=== PATIENT | male | born 1965 | race Caucasian/White ===

== ENCOUNTER 2019-06-05 07:57 | Outpatient (RCR) | payer MEDICARE, SELFPAY ==
--- NOTE | 2019-06-05 09:09 | PTOPEVAL ---
Thank you for referring this patient to [facility]. Please review, sign, date and return this plan of care [facility]. I agree with and certify that the following plan of care is medically necessary. Referring Physician Date Admitting Provider: Attending Provider: PHYSICIAN NOT ON STAFF Referring Provider: *PT Outpatient Evaluation Start: 06/05/19 08:07 Freq: Status: Active Protocol: Document 06/05/19 08:05 LORI (Rec: 06/05/19 09:07 Mavis [id number]) Therapy Assessment Status Assessment Status Assessment Status Evaluation Evaluation Information Problem Diagnosis neck pain Onset 05/30/19 Additional Evaluation Detail NDI = 38% functionally declined. Subjective Information patient reports he has been Query Text:As Reported By Patient/ having pain in the neck and in Family his bilateral arms. he reports the pain is worse in the L arm. he reports he also has pain in the L LE. he reports the pain in the neck and arms is what he is reffered to skilled PT. he reports he has numbness in the L more than the R arm. he reports he has been having pain/symptoms for a few months . he reports no injury. he reports pain/tingling/numbness /needles will appear in his arm. he reports he has pain over shaun entire arm and into the entire hand. he reports symptoms worsening with reaching above his head. he also reports he has light headedness and difficulty looking up and down. he reports the R arm will only occur when the L arm is pinful and the R arm pain does not go into his hand. Prior Level of Function Comments Additional Prior Level of Function prior to a few months ago, he Comments reports he was having no severe symptoms, but reports he has been to the chiropractor about 1 year or so ago for neck pain. he reports he is not working. he
--- NOTE | 2019-06-27 08:28 | PCPTNOTE ---
06/27/19- pt did not show for yesterday's apt. pt was called, and vm was left for pt to call back and reschedule. -.
== END 2019-06-21 17:00 | disposition home or self-care (01) ==
LOC: CHSPT 07:57
DX: M54.2 Cervicalgia (principal); R20.2 Paresthesia of skin
CPT/HCPCS: 97012; 97014; 97110; 97162; G0283

== ENCOUNTER 2019-07-03 12:38 | Outpatient (CLI) | payer MEDICARE, SELFPAY ==
--- NOTE | ~2019-07-03 | XR_ITS ---
XR cervical spine 4-5V DATE: 07/03/2019 13:01 INDICATION: Neck pain for a couple of months, radiating into both upper extremities TECHNIQUE: AP, open-mouth, lateral, bilateral oblique views COMPARISON: None FINDINGS: There is straightening and minimal dextroscoliosis of the cervical spine. Diffuse osteopenia. C1 and C2 are normally aligned and the odontoid process is intact. There is minimal anterolisthesis at C4-5. There is severe degenerative disc disease and and minimal retrolisthesis at C5-6. There is prominent uncovertebral joint spurring at C5-6, right greater than left, encroaching upon th e anterior aspect of the C6 neural foramina. Bilateral cervical carotid arterial calcifications are noted. IMPRESSION: Severe degenerative disc disease and associated minimal retrolisthesis at C5-C6 Minimal anterolisthesis at C4-5 Prominent uncovertebral joint spurring bilaterally at C5-6, especially prominent on the right, with c orresponding anterior encroachment upon both C6 neural foramina Reviewed, dictated and finalized at location B. IMPRESSION: Severe degenerative disc disease and associated minimal retrolisthe sis at C5-C6 Minimal anterolisthesis at C4-5 Prominent uncovertebral joint spurring bilaterally at C5-6, especially prominen t on the right, with corresponding anterior encroachment upon both C6 neural fo ramina
== END 2019-07-03 12:39 | disposition home or self-care (01) ==
LOC: CHSIMG 12:43
DX: M54.2 Cervicalgia (principal)
CPT/HCPCS: 72050

== ENCOUNTER 2019-12-29 13:52 | Emergency (ER) | payer MEDICARE, SELFPAY ==
--- NOTE | 2019-12-29 14:25 | PC.NURSE ---
Pt here requesting samples of xarelto, when pt was made aware that we do not have samples to hand out for pts, pt decided not to be evaluated. Pt advised to consult with his pmd and pharmacist regarding his difficulty to pay for prescriptions.
== END 2019-12-29 14:26 | disposition left against medical advice (07) ==
PROVIDERS: Emergency Provider Emergency Medicine
DX: Z53.8 Procedure and treatment not carried out for other reasons (principal)
CPT/HCPCS: 99199

== ENCOUNTER 2020-05-06 11:18 | Outpatient (CLI) | payer MEDICARE, SELFPAY ==
[2020-05-06 11:33] LABS: Basophils Absolute Auto 0.06 K/mm3 (0.00-0.10); Eosinophils Absolute Auto 0.17 K/mm3 (0.02-0.50); Eosinophils Percent Auto 2.8 % (1.0-6.0); Hematocrit 42.3 % (40.0-54.0); Hemoglobin 14.4 g/dL (14.0-18.0); Immature Granulocyte Absolute 0.02 K/mm3 (0.00-0.00); Immature Granulocyte Percent A 0.3 % (0.0-0.0); Lymphocytes Absolute Auto 1.83 K/mm3 (1.10-4.50); Lymphocytes Percent Auto 29.7 % (18.0-42.0); Mean Corpuscular Hemoglobin 33.4 pg (27.0-31.0); Mean Corpuscular Volume 98.1 fL (78.0-102.0); Mean Platelet Volume 9.1 fl (8.7-11.0); Monocytes Absolute Auto 0.74 K/mm3 (0.10-0.90); Neutrophils Absolute Auto 3.3 K/mm3 (1.7-7.2); Neutrophils Percent Auto 54.2 % (50.0-70.0); Platelet Count Result 229 K/mm3 (150-420); Red Blood Count 4.31 M/mm3 (4.70-6.10); Red Cell Distribution Width 14.3 % (11.6-14.4); White Blood Count 6.2 K/mm3 (4.8-10.8)
[2020-05-06 12:56] LABS: Alanine Aminotransferase 24 U/L (16-63); Albumin Level 3.7 g/dL (3.4-5.0); Alkaline Phosphatase 62 U/L (46-116); Anion Gap 9 mmol/L (8-16); Aspartate Amino Transferase 14 U/L (15-37); Bilirubin,Total 0.3 mg/dL (0.00-1.00); Blood Urea Nitrogen 10 mg/dL (7-18); Calcium 8.9 mg/dL (8.5-10.1); Carbon Dioxide 30 mmol/L (21-32); Chloride 106 mmol/L (98-108); Cholesterol 137 mg/dL (0-200); Estimated Glomerular Filt Rate > 60; Glucose 71 mg/dL (70-99); HDL Direct 44 mg/dL (40-60); LDL Cholesterol Calculated 71 mg/dL (<130); Osmolality Calculated 297 mOsm/kg (285-295); Potassium 4.3 mmol/L (3.5-5.1); Sodium 145 mmol/L (136-145); Total Protein 6.8 g/dL (6.4-8.2); Triglycerides 111 mg/dL (0-150)
== END 2020-05-06 11:19 | disposition home or self-care (01) ==
DX: R10.30 Lower abdominal pain, unspecified (principal); I10 Essential (primary) hypertension
CPT/HCPCS: 36415; 80053; 80061; 85025

== ENCOUNTER 2020-06-18 08:59 | Outpatient (CLI) | payer MEDICARE, MEDICAID, SELFPAY | END 2020-06-18 09:00 | disposition home or self-care (01) | DX: Z52.3 Bone marrow donor (principal) | CPT/HCPCS: 36415 ==

== ENCOUNTER 2021-04-09 11:33 | Outpatient (CLI) | payer MEDICARE, SELFPAY ==
--- NOTE | ~2021-04-09 | CT_ITS ---
EXAMINATION: CT lung screening DATE: 04/09/2021 13:31 INDICATION: Personal history of tobacco dependence SMOKER SCREENING TECHNIQUE: Computed tomography (CT) of the chest was performed without intravenous contrast. Addition al 3D reconstructions utilizing coronal maximum intensity projection (MIP) were performed. Automated exposure control and iterative reconstruction technique were employed. The dose-length product was 95 .00 mGy-cm. COMPARISON: None FINDINGS: Mild emphysema. 2.6 x 2.0 cm left apical mass with lobular margins concerning for primary bronchogeni c carcinoma. 1.7 x 1.2 cm nodule at the right middle lobe which could represent either an additional primary bronchogenic carcinoma or metastatic disease. There is enlargement of the left hilum suggesti ng lymphadenopathy which is difficult to distinguish from the adjacent vasculature. More clearly dist inguishable is a 3.0 x 2.4 cm lymph node at the AP window and 2.4 x 1.4 cm prevascular lymph node whi ch are both suspicious for metastatic disease. Mild smooth septal line thickening and increased promi nence of the pulmonary vasculature in the intersegment the left upper lobe suggesting venous congesti on and mild pulmonary edema potentially related to obstruction at the level of the left hilum. Apical posterior bronchi of the left upper lobe also appear occluded near the hilum which could be due to e xtrinsic compression. Linear atelectasis/scarring the superior segment of the left lower lobe. Additi onal mild linear scarring associated with a couple tiny calcified nodules in the superior segment of the right upper lobe which along with calcified mediastinal and bilateral hilar lymph nodes are consi stent with old granulomatous disease. No pneumonia or pleural effusion. Heart size is normal. Atheros clerotic coronary artery calcific lesions. No pericardial effusion. No evident supraclavicular lympha denopathy. Visualized upper abdomen is unremarkable. Mild thoracic spondylosis with bridging osteophy vannessa at several levels consistent with diffuse idiopathic skeletal hyperostosis (DISH). Chronic mild a nterior wedging at T10-T12. IMPRESSION: 1. Lung-RADS category 4X: Suspicious findings for which additional diagnostic testing and/or tissue s ampling is recommended with additional imaging findings with the increased suspicion for malignancy. Recommend CT-guided percutaneous biopsy of the right apical nodule. 2. Mediastinal and left hilar lymphadenopathy suspicious for metastatic disease. 3. Additional 1.7 x 1.2 cm right middle lobe nodule suspicious for metastatic disease versus second p rimary bronchogenic carcinoma. Reviewed, dictated and finalized at location H. R MACHINE OPERATOR IMPRESSION: 1. Lung-RADS category 4X: Suspicious findings for which additional diagnostic t esting and/or tissue sampling is recommended with additional imaging findings w ith the increased suspicion for malignancy. Recommend CT-guided percutaneous bi opsy of the right apical nodule. 2. Mediastinal and left hilar lymphadenopathy suspicious for metastatic disease . 3. Additional 1.7 x 1.2 cm right middle lobe nodule suspicious for metastatic d isease versus second primary bronchogenic carcinoma.
[2021-04-09 13:00] LABS: Hemoglobin 14.3 g/dL (14.0-18.0); Mean Corpuscular Hemoglobin 33.6 pg (27.0-31.0); Mean Corpuscular Volume 98.8 fL (78.0-102.0); Mean Platelet Volume 9.3 fl (8.7-11.0); Platelet Count Result 220 K/mm3 (150-420); Red Blood Count 4.25 M/mm3 (4.70-6.10); Red Cell Distribution Width 15.2 % (11.6-14.4); White Blood Count 8.6 K/mm3 (4.8-10.8)
[2021-04-09 13:36] LABS: Prostate Specific Antigen 0.6 ng/mL (< OR = 4.0)
[2021-04-09 17:07] LABS: Basophils Absolute Auto 0.06 K/mm3 (0.00-0.10); Basophils Percent Auto 0.7 % (0.0-1.0); Eosinophils Absolute Auto 0.09 K/mm3 (0.02-0.50); Immature Granulocyte Absolute 0.04 K/mm3 (0.00-0.00); Immature Granulocyte Percent A 0.5 % (0.0-0.0); Lymphocytes Percent Auto 24.4 % (18.0-42.0); Monocytes Absolute Auto 1.01 K/mm3 (0.10-0.90); Monocytes Percent Auto 11.8 % (2.0-11.0); Neutrophils Absolute Auto 5.3 K/mm3 (1.7-7.2); Neutrophils Percent Auto 61.6 % (50.0-70.0)
[2021-04-09 17:15] LABS: Alanine Aminotransferase 29 U/L (16-63); Albumin Level 3.4 g/dL (3.4-5.0); Alkaline Phosphatase 74 U/L (46-116); Anion Gap 12 mmol/L (8-16); Aspartate Amino Transferase 23 U/L (15-37); Bilirubin,Total 0.5 mg/dL (0.00-1.00); Blood Urea Nitrogen 12 mg/dL (7-18); Calcium 8.5 mg/dL (8.5-10.1); Carbon Dioxide 29 mmol/L (21-32); Chloride 99 mmol/L (98-108); Estimated Glomerular Filt Rate > 60; Glucose 104 mg/dL (70-99); Osmolality Calculated 289 mOsm/kg (285-295); Sodium 140 mmol/L (136-145); Total Protein 6.7 g/dL (6.4-8.2)
== END 2021-04-09 11:34 | disposition home or self-care (01) ==
DX: I25.10 Atherosclerotic heart disease of native coronary artery without angina pectoris (principal); I10 Essential (primary) hypertension; Z12.2 Encounter for screening for malignant neoplasm of respiratory organs; F17.210 Nicotine dependence, cigarettes, uncomplicated; Z12.5 Encounter for screening for malignant neoplasm of prostate; Z00.00 Encounter for general adult medical examination without abnormal findings
CPT/HCPCS: 36415; 71271; 80053; 84153; 85025; 85027; G0103

== ENCOUNTER 2021-05-12 13:39 | Outpatient (CLI) | payer MEDICARE, SELFPAY ==
--- NOTE | ~2021-05-12 | PE_ITS ---
EXAMINATION: PET skull to mid thigh DATE: 05/12/2021 15:28 INDICATION: Lung nodule. TECHNIQUE: Blood glucose level was 84 mg/dL. 10.435 mCi of 18-fluorodeoxyglucose (18-FDG) was adminis tered i.v. Low dose computed tomography (CT) images were acquired from the base of the brain to the p roximal thighs for attenuation correction and anatomic localization. Automated exposure control was e mployed. Dose-length product (DLP) was 476 mGy-cm. Positron emission tomography (PET) images were acq uired in the same distribution. COMPARISON: Chest CT 04/09/2021 FINDINGS: Head/neck: There is complete opacification of left maxillary sinus with thickening and sclerosis of t he sinus mena, consistent with chronic sinusitis. There is mucosal thickening in the left frontal an d anterior ethmoid sinuses. There is extensive dental disease. There is increased activity in the ora l pharynx, major salivary glands, and glottis without CT correlate, likely physiologic. There is a 1. 9 x 1.6 cm left supraclavicular lymph node with maximum SUV of 12.9. Chest: There is a 2.4 cm nodule in left upper lobe with maximum SUV of 15.8. There is mild emphysema. There are patchy airspace and groundglass opacities in left upper lobe. There is septal thickening i n left lung upper lobe. There is bulky left hilar lymphadenopathy with increased activity with occlus ion of the bronchus to apicoposterior segment left upper lobe. There is mediastinal lymphadenopathy w ith increased activity. Calcified bilateral hilar and mediastinal lymph nodes are consistent with old granulomatous disease. There is a 10 mm nodule in right middle lobe without increased activity, lik abraham benign. There is mild atelectasis bilaterally. No pleural effusion. The heart size is normal. Th ere are coronary artery calcifications. No pericardial effusion. Abdomen/pelvis/proximal thighs: The liver, spleen, and pancreas are normal. There are gallstones in t he gallbladder, which is normal in size. There are masses in the adrenal glands measuring up to 15 mm on the left measuring low-attenuation without increased activity, consistent with adenomas. The kidn eys are normal. The prostate is mildly enlarged. There are no dilated loops of bowel. The appendix is normal. There are no pathologically enlarged lymph nodes. There is no free intraperitoneal fluid. Th ere is no osseous malignancy. IMPRESSION: 1. 2.4 cm nodule in left lung upper lobe with increased activity, consistent with primary bronchial c arcinoma. 2. Left hilar, mediastinal, and left supraclavicular lymphadenopathy, consistent with metastatic dise ase. Ultrasound-guided core needle biopsy of a left supraclavicular lymph node is recommended. 3. New airspace and groundglass opacities and septal thickening in left lung upper lobe, consistent w ith postobstructive pulmonary edema and/or pneumonia. Reviewed, dictated and finalized at location A. ER/WAITRESS TAKE OUT IMPRESSION: 1. 2.4 cm nodule in left lung upper lobe with increased activity, consistent wi th primary bronchial carcinoma. 2. Left hilar, mediastinal, and left supraclavicular lymphadenopathy, consisten t with metastatic disease. Ultrasound-guided core needle biopsy of a left supra clavicular lymph node is recommended. 3. New airspace and groundglass opacities and septal thickening in left lung up per lobe, consistent with postobstructive pulmonary edema and/or pneumonia.
[2021-05-12 14:02] LABS: Glucose Point of Care 84 mg/dl (65-105)
== END 2021-05-12 13:40 | disposition home or self-care (01) ==
PROVIDERS: Visit Provider Internal Medicine Pulmonary Disease
DX: R91.1 Solitary pulmonary nodule (principal)
CPT/HCPCS: 78815; A9552

== ENCOUNTER 2021-07-06 02:21 | Day surgery (SDC) | payer MEDICARE, SELFPAY ==
[2021-06-29 09:26] VITALS: BMI 25.9
--- NOTE | 2021-06-29 09:42 | PC.NURSE ---
Addendum entered by Marisa Marshall RN 07/01/21 15:36: PT TO ARRIVE AT 1230 ON 07/06/21 FOR SURGERY AT 1430. MEDICATIONS TO TAKE: CARVEDILOL, INHALERS, AUGMENTIN, AND PAIN PILL (IF NEEDED). Original Note: Report to the Outpatient Waiting Room, entrance under the green pavilion located off [facility], at time 1000 on date 07/01/21. OR Time: 1200. - You and your visitor will be asked a series of questions to screen for COVID 19 for your protection. - A mask is required within the hospital. One visitor will be allowed to accompany the patient into the hospital. Patients visitor will be instructed to remain with patient at all times or leave the building. We will allow the visitor to come back to the postoperative area when patient is ready. Preoperative COVID Testing Requirements: No COVID Test needed if: (proof is required; if not received patient will have Rapid Test prior to entry) - Patient has received COVID Vaccine at least 14 days prior to procedure date or - Patient has positive COVID test result within last 90 days of surgery date. COVID Test needed if above criteria is not met Patients may have clear liquids (water, carbonated beverages, clear teas, apple juice) until 3 hours prior to surgery with a maximum of 20 ounces. - No food from midnight until time of surgery Take the following medications with a SIP of water the morning of surgery: CARVEDILOL, INHALERS Medications to discontinue per physician: XARELTO Date to take last dose: PT LAST TOOK 06/28 AM Please no make-up, nail lithuanian, hairspray, perfume, deodorant, or body powder the day of surgery. No jewelry (including any body piercings) or valuables the day of surgery, leave them at home. Please take a shower or bath the night before, or the morning of, surgery with an antibacterial soap. Wear comfortable, loose fitting clothing. - Jewelry must be removed prior to entering the operating room. Rings and piercings that are not removed may be cut off. - The hospital will not accept responsibility for valuables. - Please leave all valuables, including medications, at home the day of surgery. If you are going home after surgery, a licensed chair car driver must drive you home. - NO public transportation without another adult. - We recommend that an adult stay with you for 24 hours following discharge. - We also recommend that you do not drive, make important decision, drink alcoholic beverages, or take any drugs that were not prescribed by your health care provider for at least 24 hours after your discharge time. Follow any additional instructions given to you from your surgeon. Telephone instructions given to LEXI ROBERTS and asked if any additional questions and then verbalized understanding. Patient advised to call surgeon office or pre surgery nurse liaison [phone] if any additional questions.
--- NOTE | 2021-07-01 15:35 | PC.NURSE ---
Pt re-scheduled surgery d/t infected tooth. Medications updated, remaining health hx unchanged since initial interview. New instructions reviewed with pt. Pt denies further questions at this time.
--- NOTE | ~2021-07-06 | XR_ITS ---
EXAMINATION: XR chest port-a-cath/central INDICATION: Port-A-Cath insertion TECHNIQUE: Portable AP chest at 1424 hours COMPARISON: CT, 04/09/2021 FINDINGS: A right subclavian Port-A-Cath ends with its tip in the distal superior vena cava. There is a left upper lobe mass and left hilar lymphadenopathy. No pleural effusion or pneumothorax is identi fied. The heart size is normal. IMPRESSION: 1. Right subclavian Port-A-Cath insertion without pneumothorax. 2. Left upper lobe mass and left hilar lymphadenopathy, consistent with primary bronchogenic carcinom a with metastatic hilar lymphadenopathy. Reviewed, dictated and finalized at location B. IMPRESSION: 1. Right subclavian Port-A-Cath insertion without pneumothorax. 2. Left upper lobe mass and left hilar lymphadenopathy, consistent with primary bronchogenic carcinoma with metastatic hilar lymphadenopathy.
--- NOTE | ~2021-07-06 | XR_ITS ---
EXAMINATION: XR fl guide central line place DATE: 07/06/2021 16:50 INDICATION: Port catheter insertion TECHNIQUE: Single fluoroscopic spot image of the central chest was obtained during procedure performe d by Dr. Ruiz. Radiologist was not present for the imaging or procedure. The amount of fluoroscopy t lu used during this procedure was 0.4 minutes. COMPARISON: None. FINDINGS/IMPRESSION: Right subclavian central venous port catheter with distal tip at the caudal supe rior vena cava. See procedure note for further detail. Reviewed, dictated and finalized at location A.
[2021-07-06 12:47] VITALS: BP 125/76; PULSE 71; RESP 16; TEMP 37.1; O2SAT 98
--- NOTE | 2021-07-06 13:08 | P.PNAN_ITS ---
Anes - Initial Pre Proc Eval Procedure: Operation Date: 07/06/21 14:30 Proposed Procedures p Insertion Katia Cath - Luz Ruiz MD Date/Time: 07/06/21 13:08 Surgeon: Luz Ruiz MD Pre Op Diagnosis: Malignant neoplasm of Upper Lobe Right Lung Patient Data Age: 56 Gender: M Height: 1.75 m Weight: 77.5 kg Allergies Allergy/AdvReac Type Severity Reaction Status Date / Time No Known Allergies Allergy Verified 07/06/21 13:05 Home Medications Medication Instructions Recorded Confirmed Type albuterol sulfate 2 puff INHALATION QID PRN 06/16/21 07/01/21 History aspirin [Aspirin Low Dose] 81 mg PO DAILY 06/16/21 07/01/21 History atorvastatin 40 mg PO DAILY 06/16/21 07/01/21 History budesonide-formoterol [Symbicort] 2 puff INHALATION Q12H 06/16/21 07/01/21 History carvedilol 25 mg PO BID 06/16/21 07/01/21 History pantoprazole 40 mg PO QAM 06/16/21 07/01/21 History rivaroxaban [Xarelto] 20 mg PO DAILY 06/16/21 07/01/21 History hydrocodone-acetaminophen 1 tablet PO Q8H PRN 06/30/21 07/01/21 History amoxicillin-pot clavulanate 1 tablet PO BID 07/01/21 07/01/21 History Patient hx anesthesia problems: none Family hx anesthesia problems: none Results Review: All pre-operative results and documents have been reviewed as part of the pre-operative evaluation. COUNTS INCLUDE 234 BEDS AT THE [facility] Past Medical History Medical History CAD (coronary artery disease) DVT (deep venous thrombosis) Hyperlipidemia Hypertension Lung cancer Pulmonary embolism Surgical History Surgical History Stented coronary artery Social History Social History Smoking packs per day: 2.5 Smoking cigarettes per day: 50.0 Years smoked: 40 Smoking pack-years: 100.00 Smoking status: Current every day smoker Tobacco type: cigarettes Additional smoking assessment comments: smoked upto 4 packs at one time, down to 1/2pack Alcohol intake: former Substance use: never Substance use type: does not use Spiritual care concerns: No Anes - Eval Final PreProcedure Day of Procedure 07/06/21 13:08 Patient weight: normal Heart: regular rate and rhythm Lungs: decreased breath sounds Airway: Mallampati scale class II and special considerations poor dentition Neurological: alert and oriented Last oral intake: >/= 8 hours ASA classification: IV Emergent: no Anesthetic plan: proceed Anesthesia type and monitoring: general GIVS and standard monitoring Results Review: All pre-operative results and documents have been reviewed as part of the pre-operative evaluation. Informed Consent: The patient's anesthetic plan and its attendant risks and benefits were discussed with the patient/family/POA. Questions were solicited and answers provided to the satisfaction of the patient/family/POA.
[2021-07-06 13:09] LABS: Basophils Absolute Auto 0.1 K/mm3 (0.0-0.1); Basophils Percent Auto 0.7 % (0.2-1.2); Eosinophils Absolute Auto 0.2 K/mm3 (0-0.3); Eosinophils Percent Auto 2.2 % (0-4.4); Hematocrit 42.9 % (42.0-52.0); Hemoglobin 14.4 g/dL (14.0-18.0); Immature Granulocyte Absolute 0.03 K/mm3 (0.00-0.031); Immature Granulocyte Percent A 0.4 % (0-0.5); Lymphocytes Absolute Auto 1.85 K/mm3 (0.9-3.2); Lymphocytes Percent Auto 27.5 % (18.3-44.2); Mean Corpuscular HGB Conc 33.6 g/dl (32-36); Mean Corpuscular Hemoglobin 32.7 pg (26-34); Mean Corpuscular Volume 97.3 fl (80-100); Mean Platelet Volume 9.4 fl (7.4-10.4); Monocytes Absolute Auto 0.8 K/mm3 (0.1-0.6); Monocytes Percent Auto 11.5 % (2.6-8.5); Neutrophils Absolute Auto 3.9 K/mm3 (1.3-6.7); Neutrophils Percent Auto 57.7 % (45.5-73.1); Platelet Count Result 301 k/mm3 (150-375); Red Blood Count 4.41 M/mm3 (4.6-6.20); Red Cell Distribution Width 13.6 % (11.5-14.5); White Blood Count 6.7 K/mm3 (4.5-10.0)
[2021-07-06] MEDS: LACTATED RINGERS 1,000 ML 30 ML IV CONT (13:15)
[2021-07-06] MEDS: KETOROLAC 15 MG/ML VIAL (*BKC) IV PUSH (13:16)
[2021-07-06 13:18] LABS: INR 1.2; Prothrombin Time 14.3 Seconds (11.1-14.7)
[2021-07-06 13:19] LABS: Partial Thromboplastin Time 30.9 SECONDS (22.3-36.8)
--- NOTE | 2021-07-06 13:27 | PM.IMHP ---
H&P: HPI History of Present Illness Date/Time: 07/06/21 13:27 56 y/o M presenting c L lung cancer c mets to thoracic LN. Pt is going to undergo chemoradiation. Pt denies any previous central venous catheterization. Chief Complaint: lung cancer Review of Systems Review of Systems: All systems reviewed & are unremarkable except as noted in HPI and below PMFSH Past Medical History Medical History (Updated 07/06/21 @ 13:29 by Luz Ruiz MD) CAD (coronary artery disease) DVT (deep venous thrombosis) Hyperlipidemia Hypertension Lung cancer Pulmonary embolism Surgical History Surgical History Stented coronary artery Social History Social History Smoking packs per day: 2.5 Smoking cigarettes per day: 50.0 Years smoked: 40 Smoking pack-years: 100.00 Smoking status: Current every day smoker Tobacco type: cigarettes Additional smoking assessment comments: smoked upto 4 packs at one time, down to 1/2pack Alcohol intake: former Substance use: never Substance use type: does not use Spiritual care concerns: No Meds Home Medications and Allergies Home Medications Medication Instructions Recorded Confirmed Type albuterol sulfate 2 puff INHALATION QID PRN 06/16/21 07/06/21 History aspirin [Aspirin Low Dose] 81 mg PO DAILY 06/16/21 07/06/21 History atorvastatin 40 mg PO DAILY 06/16/21 07/06/21 History budesonide-formoterol [Symbicort] 2 puff INHALATION Q12H 06/16/21 07/06/21 History carvedilol 25 mg PO BID 06/16/21 07/06/21 History pantoprazole 40 mg PO QAM 06/16/21 07/06/21 History rivaroxaban [Xarelto] 20 mg PO DAILY 06/16/21 07/06/21 History hydrocodone-acetaminophen 1 tablet PO Q8H PRN 06/30/21 07/06/21 History amoxicillin-pot clavulanate 1 tablet PO BID 07/01/21 07/06/21 History Allergies Allergy/AdvReac Type Severity Reaction Status Date / Time No Known Allergies Allergy Verified 07/06/21 13:05 Vital Signs Vital Signs - 24 hr 07/06/21 12:47 Temperature 37.1 C Pulse Rate 71 Respiratory Rate 16 Blood Pressure 125/76 Pulse Oximetry 98 Exam Const: General: cooperative, comfortable, no acute distress and ill appearing Nutritional Appearance: average body habitus Orientation/consciousness: patient oriented x3 Limitations: no limitations Chest: Chest palpation & inspection: normal inspection of the chest Resp: Effort & Inspection: normal respiratory effort Auscultation: diminished lung sounds Cardio: Rate: regular rate Rhythm: regular rhythm GI: Inspection: normal to inspection GI Palp: Yes Soft to palpation H&P: Results Labs Labs: Short CBC 07/06/21 Range/Units 12:44 WBC 6.7 (4.5-10.0) K/mm3 Hgb 14.4 (14.0-18.0) g/dL Hct 42.9 (42.0-52.0) % Plt Count 301 (150-375) k/mm3 Assessment and Plan Assessment and plan (1) Lung cancer: Code(s): C34.90 - Malignant neoplasm of unspecified part of unspecified bronchus or lung Status: Acute Assessment and Plan: will setup for port placement for chemo access
--- NOTE | 2021-07-06 13:30 | WPDHPUPDATE1 ---
History and Physical Update Update Date/Time: 07/06/21 13:30 History and Physical has been reviewed, including an updated exam of the patient. There are NO changes in the patient's condition. Risks, benefits, and alternatives have been discussed and questions answered. Patient agrees to proceed with procedure.
[2021-07-06] MEDS: ceFAZolin 2 GM/D5W 50 ML 2 GM/50 ML BAG IVPB (13:36)
[2021-07-06] MEDS: BUPIVACAINE/EPINEPHRINE 0.25% 10 ML VIAL INFILTRATE (13:54)
[2021-07-06] MEDS: HEPARIN SODIUM, PORCINE 10,000 UNITS/10 ML VIAL 4000 UNITS IV PUSH (14:05)
[2021-07-06] MEDS: HEPARIN SODIUM 5,000 UNITS/ML VIAL 5000 UNITS IRRIGATION (14:09)
--- NOTE | 2021-07-06 14:13 | W.PM.PROC2 ---
Procedure Note - Detailed Date of Procedure 07/06/21 Pre-op Diagnosis Left lung cancer Post-op Diagnosis Same Procedure Performed placement right subclavian venous access device under fluroscopic guidance Surgeon Luz Ruiz MD Anesthesia MAC and Local Indications 56 y/o M c unresectable L upper lung cancer c met to thoracic LN undergoing chemoradiation. Pt need chemo access Findings R SCV stick Description of Procedure Patient was brought into the operating room and placed in the supine position. After adequate induction of mac anesthesia, the patient was prepped and draped in normal sterile fashion. Time-out was then done to verify the patient's identity, as well as the procedure being performed. I began by making a small incision in the right chest, I then gained access into the right subclavian vein with an 18 gauge needle. I then placed the guidewire into the vein and confirmed placement via fluoroscopic guidance. I then locally anesthetized the area in the right chest. I then enlarged the incision around the guidewire including making a subcutaneous pocket inferiorly to allow placement of the port itself. I then placed a dilating sheath over the guidewire into the right subclavian vein via sterile Seldinger technique. This was once again done and confirmed via fluoroscopic guidance. I then removed the dilator and the guidewire, now just leaving the sheath in the vein. I then fed the previously flushed catheter into the right subclavian vein under fluoroscopic guidance. At approximately 17 cm, the catheter was noted to be near the atrial caval junction. I then peeled away the sheath, now just leaving the catheter in the vein. I then was able to easily draw and flush from the catheter. The catheter was cut to fit and attached to the port itself. The port was placed into the previously made subcutaneous pocket and sutured in with 0 Ethibond suture. Final fluoroscopic view showed the termination of the catheter at the atrial caval junction with a nice smooth curvature back to the port itself. I was able to gain access to the port with a Staley needle and was able to easily draw and flush from the port. I then flushed 4 cc of a final heparin flush into the port. The incision was closed with 3 0 Vicryl suture in the subcutaneous tissue and the skin was closed with 4 O Monocryl subcuticular suture. Dermabond was then placed on wound. The patient tolerated the procedure well and will be sent to the recovery room in stable condition. Implants R SCV VAD Estimated Blood Loss 5 Drains No Packing No Pathology None sent Complications No immediate complications Condition Stable Disposition PACU
[2021-07-06 14:16] VITALS: BP 93/57; PULSE 63; RESP 19; O2SAT 94
[2021-07-06 14:45] VITALS: BP 102/57; PULSE 60; RESP 20
[2021-07-06 15:15] VITALS: BP 109/71; PULSE 64; RESP 20
== END 2021-07-06 15:25 | disposition home or self-care (01) ==
PROVIDERS: Visit Provider Surgery
PROC: (CPT 36561; principal; 2021-07-06 14:30)
DX: C34.12 Malignant neoplasm of upper lobe, left bronchus or lung (principal); I25.10 Atherosclerotic heart disease of native coronary artery without angina pectoris; Z86.718 Personal history of other venous thrombosis and embolism; I10 Essential (primary) hypertension; E78.5 Hyperlipidemia, unspecified; Z86.711 Personal history of pulmonary embolism; Z95.5 Presence of coronary angioplasty implant and graft; F17.210 Nicotine dependence, cigarettes, uncomplicated; Z79.01 Long term (current) use of anticoagulants; Z79.82 Long term (current) use of aspirin; Z79.51 Long term (current) use of inhaled steroids
CPT/HCPCS: 36561; 36415; 77001; 85025; 85610; 85730; C1788; J0690; J1644; J1885; J2250; J2704; J3010; J7030; J7120

== ENCOUNTER 2021-10-14 08:41 | Outpatient (CLI) | payer MEDICARE, SELFPAY ==
--- NOTE | ~2021-10-14 | CT_ITS ---
EXAMINATION: CT diagnostic chest w con DATE: 10/14/2021 09:02 INDICATION: Upper chest pain, history of lung cancer TECHNIQUE: Transaxial computed tomographic images of the chest were obtained after the administration of 75 cc of Omnipaque 300 intravenous contrast. The dose-length product (DLP) was 176.32 mGy-cm. Ite rative reconstruction was used. COMPARISON: 05/12/2021, 04/09/2021 FINDINGS: There is mild emphysema. A 1.5 x 1.0 cm nodule of the left lung apex previously measured 2. 6 x 2.0 cm. Patchy airspace opacities of the left lung apex persist but have decreased, likely resolv ing postobstructive pneumonia. The previously described right middle lobe nodule is no longer evident . No pleural effusion or pneumothorax. A right internal jugular Port-A-Cath ends with its tip in the distal superior vena cava. Left hilar and aortic pulmonary window lymphadenopathy persists with minim al change. Left supraclavicular lymphadenopathy has improved. The heart size is normal. There is calc ified coronary artery atherosclerosis. Subendocardial fat deposition in the interventricular septum a nd left ventricular apex is consistent with prior myocardial infarction. There are bridging osteophyt es at multiple levels in the spine, consistent with diffuse idiopathic skeletal hyperostosis (DISH). Bilateral adrenal adenomas are noted. Stones are present in the nondistended gallbladder. IMPRESSION: 1. Interval decrease in size of a left apical lung nodule, consistent with primary bronchogenic carci noma. 2. Stable left hilar and mediastinal lymphadenopathy and decreased left supraclavicular lymphadenopat hy, consistent with metastatic disease. Reviewed, dictated and finalized at location A. IMPRESSION: 1. Interval decrease in size of a left apical lung nodule, consistent with prim josé miguel bronchogenic carcinoma. 2. Stable left hilar and mediastinal lymphadenopathy and decreased left supracl avicular lymphadenopathy, consistent with metastatic disease.
== END 2021-10-14 08:42 | disposition home or self-care (01) ==
PROVIDERS: Visit Provider Internal Medicine Hematology & Oncology
DX: C34.12 Malignant neoplasm of upper lobe, left bronchus or lung (principal); D35.02 Benign neoplasm of left adrenal gland; D35.01 Benign neoplasm of right adrenal gland; K80.20 Calculus of gallbladder without cholecystitis without obstruction; M25.78 Osteophyte, vertebrae; I25.10 Atherosclerotic heart disease of native coronary artery without angina pectoris
CPT/HCPCS: 71260; Q9967

== ENCOUNTER 2021-12-14 12:10 | Outpatient (CLI) | payer MEDICARE, SELFPAY ==
--- NOTE | ~2021-12-14 | CT_ITS ---
EXAMINATION:CT diagnostic chest w con DATE: 12/14/2021 12:34 INDICATION: Shortness of breath. Cough. Chest pain. Left upper lobe lung cancer. TECHNIQUE: Computed tomography (CT) of the chest was performed with 75 mL Omnipaque 350 intravenous c ontrast. Automated exposure control and iterative reconstruction technique were employed. The dose-le ngth product (DLP) was 203.67 mGy-cm. COMPARISON: Chest CT 10/14/2021, 04/09/21, PET/CT 05/12/21 FINDINGS: There is mild emphysema. In the left upper lobe, there are groundglass opacities and septal thickening. In the left upper lobe, there is a 16 mm nodule that is stable from 10/14/21 and decrease d from 21 mm on 04/09/21. There are small patchy airspace opacities in the surrounding left upper lob e and superior segment left lower lobe, consistent with radiation pneumonitis. There are small periph eral airspace opacities with associated septal thickening in right lower lobe, right middle lobe, and right upper lobe, likely scarring. No pleural effusion. The heart size is normal. There is subendoca rdial fat involving the left ventricular apex and anterior, septal, and inferior mena, consistent wi th old infarct. There are coronary artery calcifications. No pericardial effusion. Calcified bilatera l hilar lymph nodes are consistent with old granulomatous disease. There is noncalcified left hilar l ymphadenopathy with a tracey mass measuring 5.2 x 3.2 cm. There is peripheral thrombus in the pulmonar y artery to the right middle lobe and right lower lobe. There are gallstones in the gallbladder, whic h is normal in size. There are chronic masses in the adrenal glands measuring up to 2.1 cm on the lef t, consistent with adenomas. Calcifications in the spleen are consistent with old granulomatous disea se. There is a right internal jugular port with tip at superior cavoatrial junction. There are bridgi ng endplate osteophytes at multiple levels in the spine, consistent with diffuse idiopathic skeletal hyperostosis (DISH). There is mild chronic anterior wedging of multiple vertebral bodies. IMPRESSION: 1. Stable left lung upper lobe nodule, consistent with primary bronchogenic carcinoma. 2. Stable left hilar lymphadenopathy, consistent metastatic disease. 3. Mild emphysema. 4. Stable radiation pneumonitis involving left upper lobe and superior segment left lower lobe. 5. Peripheral chronic pulmonary embolus involving the pulmonary artery to the right middle lobe and r ight lower lobe. Reviewed, dictated and finalized at location A. IMPRESSION: 1. Stable left lung upper lobe nodule, consistent with primary bronchogenic car cinoma. 2. Stable left hilar lymphadenopathy, consistent metastatic disease. 3. Mild emphysema. 4. Stable radiation pneumonitis involving left upper lobe and superior segment left lower lobe. 5. Peripheral chronic pulmonary embolus involving the pulmonary artery to the r ight middle lobe and right lower lobe.
== END 2021-12-14 12:11 | disposition home or self-care (01) ==
LOC: ANHIMG 12:12
PROVIDERS: Visit Provider Internal Medicine Hematology & Oncology
DX: C34.12 Malignant neoplasm of upper lobe, left bronchus or lung (principal); J43.9 Emphysema, unspecified
CPT/HCPCS: 36415; 71260; 80047; 80053; 83735; 84443; 85025; 96413; J9173; Q9967

== ENCOUNTER 2022-03-29 09:42 | Outpatient (CLI) | payer MEDICARE, SELFPAY ==
--- NOTE | ~2022-03-29 | CT_ITS ---
Clinical Indication: Left upper lobe neoplasm, history of radiation therapy CT Scan of the Chest with Contrast: Technique: Contiguous sections were acquired throughout the chest after intravenous administration of 75 cc of Isovue 300. Dose reduction technique was used on this scan by utilizing automated exposure control and iterative reconstruction technique. The dose-length product (DLP) was 193.68 mGy-cm. COMPARISON: 12/14/2021 Findings: Stable small spiculated nodular opacities in the left lung apex with surrounding mild interstitial th ickening are stable from prior exam. Abnormal soft tissue density at the left hilar region is also un changed from prior exam. Stable small irregular opacities in the right lower lobe. Stable chronic appearing pulmonary embolus in the right lower lobar pulmonary artery. No aortic aneur ysm or dissection. No pericardial effusion. No pleural effusions. Images through the upper abdomen reveal tiny calcified gallstones. Impression: Overall, no change from prior exam. Stable small spiculated nodules in the left lung apex, consistent with neoplastic lesions. Left hilar lymphadenopathy, consistent with metastatic disease. Stable small irregular opacities in the right lower lobe, indeterminate. Stable chronic pulmonary venous and the right lower lobar pulmonary artery. Reviewed, dictated and finalized at location [] LIANDEER LOPPER Impression: Overall, no change from prior exam. Stable small spiculated nodules in the left lung apex, consistent with neoplast ic lesions. Left hilar lymphadenopathy, consistent with metastatic disease. Stable small irregular opacities in the right lower lobe, indeterminate. Stable chronic pulmonary venous and the right lower lobar pulmonary artery.
== END 2022-03-29 09:43 | disposition home or self-care (01) ==
PROVIDERS: Visit Provider Internal Medicine Hematology & Oncology
DX: C34.12 Malignant neoplasm of upper lobe, left bronchus or lung (principal); R91.8 Other nonspecific abnormal finding of lung field
CPT/HCPCS: 71260; Q9967

== ENCOUNTER 2022-06-22 14:55 | Outpatient (CLI) | payer MEDICARE, SELFPAY ==
--- NOTE | ~2022-06-22 | CT_ITS ---
EXAMINATION:CT diagnostic chest w con DATE: 06/22/2022 15:17 INDICATION: Malignant neoplasm of upper lobe of left lung. TECHNIQUE: Computed tomography (CT) of the chest was performed with 75 mL Omnipaque 350 intravenous c ontrast. Automated exposure control and iterative reconstruction technique were employed. The dose-le ngth product (DLP) was 172.76 mGy-cm. COMPARISON: Chest CT 03/29/2022, 04/09/21, 05/11/16 FINDINGS: There is mild emphysema. There are mild chronic peripheral groundglass and airspace opaciti es in right lower lobe and right upper lobe. There are small groundglass opacities with volume loss i n left upper lobe, consistent with radiation pneumonitis. There is a 1.6 x 0.8 cm nodule in left lung upper lobe. There are airspace opacities in left perihilar region with architectural distortion. The re is a 5.0 x 2.0 cm left hilar and mediastinal mass, consistent with adenopathy. There is mild atele ctasis versus scarring in lingula. No pleural effusion. Calcified left hilar and mediastinal lymph no candice are consistent with old granulomatous disease. No pleural effusion. The heart size is normal. The re are coronary artery calcifications. No pericardial effusion. There is calcified atherosclerosis of the aorta and many of the other arteries. There is a right subclavian port with tip in superior vena cava. There is mild thoracic spondylosis. There is mild chronic anterior wedging of multiple thoraci c vertebral bodies. There are bridging endplate osteophytes at multiple levels in the spine, consiste nt with diffuse idiopathic skeletal hyperostosis (DISH). IMPRESSION: 1. Stable left lung upper lobe nodule and stable left hilar and mediastinal lymphadenopathy, consiste nt with primary bronchogenic carcinoma and tracey metastatic disease. 2. Stable mild radiation pneumonitis. 3. Mild emphysema. Reviewed, dictated and finalized at location A. WORKER IMPRESSION: 1. Stable left lung upper lobe nodule and stable left hilar and mediastinal lym phadenopathy, consistent with primary bronchogenic carcinoma and tracey metastat ic disease. 2. Stable mild radiation pneumonitis. 3. Mild emphysema.
== END 2022-06-22 14:56 | disposition home or self-care (01) ==
LOC: ANHIMG 14:58
PROVIDERS: Visit Provider Internal Medicine Hematology & Oncology
DX: C34.12 Malignant neoplasm of upper lobe, left bronchus or lung (principal); J43.9 Emphysema, unspecified; R91.8 Other nonspecific abnormal finding of lung field
CPT/HCPCS: 71260; Q9967

== ENCOUNTER 2022-07-28 01:59 | Day surgery (SDC) | payer MEDICARE, SELFPAY ==
[2022-07-16 13:58] VITALS: BMI 22.2
[2022-07-28 11:35] VITALS: BP 116/87; PULSE 84; RESP 18; TEMP 36.6; O2SAT 98; BMI 21.4
[2022-07-28] MEDS: LACTATED RINGERS 1,000 ML 150 ML IV CONT (11:39)
--- NOTE | 2022-07-28 11:54 | WPDANESEPPF ---
Anes - Initial Pre Proc Eval Procedure: Operation Date: 07/28/22 13:30 Proposed Procedures p Esophagogastroduodenoscopy - Jayson Eduardo MD Date/Time: 07/28/22 11:54 Surgeon: Jayson Eduardo MD Pre Op Diagnosis: dysphagia Patient Data Age: 57 Gender: M Height: 1.78 m Weight: 68 kg Last Vital Signs Temp 98 F 07/28/22 11:35 Pulse 84 07/28/22 11:35 Resp 18 07/28/22 11:35 BP 116/87 07/28/22 11:35 Pulse Ox 98 07/28/22 11:35 O2 Del Method Room Air 07/28/22 11:35 Allergies Allergy/AdvReac Type Severity Reaction Status Date / Time No Known Allergies Allergy Verified 07/28/22 11:33 Home Medications Medication Instructions Recorded Confirmed Type albuterol sulfate 90 mcg/actuation 2 puff inhalation QID PRN 06/16/21 07/28/22 History aerosol inhaler Bronchospasm aspirin 81 mg tablet,delayed 81 mg PO DAILY 06/16/21 07/28/22 History release (Evaristo Low Dose Aspirin) atorvastatin 40 mg tablet 40 mg PO DAILY 06/16/21 07/28/22 History budesonide-formoterol HFA 160 2 puff inhalation Q12H 06/16/21 07/28/22 History mcg-4.5 mcg/actuation aerosol inhaler (Symbicort) carvedilol 25 mg tablet 25 mg PO BID 06/16/21 07/28/22 History pantoprazole 40 mg tablet,delayed 40 mg PO BID 06/16/21 07/28/22 History release rivaroxaban 20 mg tablet (Xarelto) 20 mg PO DAILY 06/16/21 07/28/22 History folic acid 1 mg PO DAILY 08/06/21 07/28/22 History hydrocodone 10 mg-acetaminophen 1 tablet PO Q4H PRN Pain 08/06/21 07/28/22 History 300 mg tablet sucralfate 1 gram tablet See Rx Instructions .Route 08/10/21 07/28/22 Rx .COMPLEX #60 tabs megestrol 400 mg/10 mL (10 mL) 400 mg PO DAILY 01/25/22 07/28/22 History oral suspension lisinopril 5 mg tablet 5 mg PO DAILY 07/16/22 07/28/22 History nitroglycerin 0.4 mg sublingual See Rx Instructions .Route .COMPLEX 07/16/22 07/28/22 History tablet Patient hx anesthesia problems: none Family hx anesthesia problems: none Results Review: All pre-operative results and documents have been reviewed as part of the pre-operative evaluation. [facility] Past Medical History Medical History (Updated 08/10/21 @ 16:42 by Mookie Doe MD) CAD (coronary artery disease) DVT (deep venous thrombosis) Hyperlipidemia Hypertension Lung cancer Pulmonary embolism Surgical History Surgical History (Updated 07/07/21 @ 11:20 by Ella Sosa Mai, MD) Stented coronary artery Social History Social History Smoking packs per day: 2.5 Smoking cigarettes per day: 50.0 Years smoked: 40 Smoking pack-years: 100.00 Smoking status: Current every day smoker Tobacco type: cigarettes Additional smoking assessment comments: CUT BACK TO TO 1PK/DAY SINCE 12/2021 Alcohol intake: current Drinks per week: 12 Alcohol use details: BEERS Substance use: former Substance use type: crack/cocaine Living arrangements: with family Spiritual care concerns: No Anes - Eval Final PreProcedure Day of Procedure 07/28/22 11:54 Patient weight: normal Heart: regular rate and rhythm Lungs: clear to auscultation Airway: Mallampati scale class III Neurological: alert and oriented Last oral intake: >/= 8 hours ASA classification: IV Emergent: no Anesthetic plan: proceed Anesthesia type and monitoring: general GIVS and standard monitoring Results Review: All pre-operative results and documents have been reviewed as part of the pre-operative evaluation. Informed Consent: The patient's anesthetic plan and its attendant risks and benefits were discussed with the patient/family/POA. Questions were solicited and answers provided to the satisfaction of the patient/family/POA.
--- NOTE | 2022-07-28 12:13 | PM.HPGS ---
History of Present Illness History of Present Illness Consent: Risks, benefits, and alternatives have been discussed and questions answered. Patient agrees to proceed with procedure. Chief complaint: dysphagia Narrative: Terrance Souza is a 57 year old male with gerd on ppi, also dysphagia after he had XRT (h/o lung cancer) Review of Systems Constitutional: Constitutional: Denies headache(s) and Denies weakness Eyes: Eyes: Denies blurry vision ENT: Reports Normal hearing present, Denies headache(s) and Denies neck pain Cardiovascular: Cardiovascular: Denies chest pain and Denies dyspnea Respiratory: Respiratory: Denies dyspnea Gastrointestinal: Gastrointestinal: Reports no additional gastrointestinal complaints Genitourinary: Genitourinary: Denies dysuria Musculoskeletal: Musculoskeletal: Denies neck pain Integumentary/Breasts: Skin/Breast: Denies dry skin Neurologic: Reports Normal hearing present, Denies headache(s) and Denies weakness Psychiatric: Psychiatric: Denies anxiety Endocrine: Endocrine: Denies change in body appearance Hematologic/Lymphatic: Hematologic/Lymphatic: Denies easy bleeding Allergic/Immunologic: Allergic/Immunologic: Denies urticaria PMF Past Medical History Medical History (Updated 07/28/22 @ 12:14 by Jayson Eduardo MD) CAD (coronary artery disease) DVT (deep venous thrombosis) Dysphagia Hyperlipidemia Hypertension Lung cancer Pulmonary embolism Surgical History Surgical History (Updated 07/07/21 @ 11:20 by Ella Sosa Mai, MD) Stented coronary artery Social History Social History Smoking packs per day: 2.5 Smoking cigarettes per day: 50.0 Years smoked: 40 Smoking pack-years: 100.00 Smoking status: Current every day smoker Tobacco type: cigarettes Additional smoking assessment comments: CUT BACK TO TO 1PK/DAY SINCE 12/2021 Alcohol intake: current Drinks per week: 12 Alcohol use details: BEERS Substance use: former Substance use type: crack/cocaine Living arrangements: with family Spiritual care concerns: No Meds Home Medications and Allergies Home Medications Medication Instructions Recorded Confirmed Type albuterol sulfate 90 mcg/actuation 2 puff inhalation QID PRN 06/16/21 07/28/22 History aerosol inhaler Bronchospasm aspirin 81 mg tablet,delayed 81 mg PO DAILY 06/16/21 07/28/22 History release (Evaristo Low Dose Aspirin) atorvastatin 40 mg tablet 40 mg PO DAILY 06/16/21 07/28/22 History budesonide-formoterol HFA 160 2 puff inhalation Q12H 06/16/21 07/28/22 History mcg-4.5 mcg/actuation aerosol inhaler (Symbicort) carvedilol 25 mg tablet 25 mg PO BID 06/16/21 07/28/22 History pantoprazole 40 mg tablet,delayed 40 mg PO BID 06/16/21 07/28/22 History release rivaroxaban 20 mg tablet (Xarelto) 20 mg PO DAILY 06/16/21 07/28/22 History folic acid 1 mg PO DAILY 08/06/21 07/28/22 History hydrocodone 10 mg-acetaminophen 1 tablet PO Q4H PRN Pain 08/06/21 07/28/22 History 300 mg tablet sucralfate 1 gram tablet See Rx Instructions .Route 08/10/21 07/28/22 Rx .COMPLEX #60 tabs megestrol 400 mg/10 mL (10 mL) 400 mg PO DAILY 01/25/22 07/28/22 History oral suspension lisinopril 5 mg tablet 5 mg PO DAILY 07/16/22 07/28/22 History nitroglycerin 0.4 mg sublingual See Rx Instructions .Route .COMPLEX 07/16/22 07/28/22 History tablet Allergies Allergy/AdvReac Type Severity Reaction Status Date / Time No Known Allergies Allergy Verified 07/28/22 11:33 Vital Signs Vital Signs - 24 hr 07/28/22 11:35 Temperature 98 F Pulse Rate 84 Respiratory Rate 18 Blood Pressure 116/87 Pulse Oximetry 98 Oxygen Delivery Room Air Exam Const: General: comfortable and no acute distress HENMT: Face/Nose/Sinus: Normal nares present Eyes: General: appearance normal, both eyes and all related structures Neck: Neck: no JVD Resp: Auscultat
[2022-07-28 12:28] VITALS: BP 137/91; PULSE 59; RESP 20; O2SAT 99
[2022-07-28 12:38] VITALS: BP 134/85; PULSE 70; RESP 18; O2SAT 97
[2022-07-28 12:48] VITALS: BP 115/79; PULSE 71; RESP 16; O2SAT 98
== END 2022-07-28 12:56 | disposition home or self-care (01) ==
PROVIDERS: PCP Family Medicine; Visit Provider Internal Medicine Gastroenterology
PROC: 0DJ08ZZ Inspection of Upper Intestinal Tract, Via Natural or Artificial Opening Endoscopic (ICD-10-PCS; CPT 43235; principal; 2022-07-28 13:30)
DX: K21.9 Gastro-esophageal reflux disease without esophagitis (principal); K22.2 Esophageal obstruction; K44.9 Diaphragmatic hernia without obstruction or gangrene; Z85.118 Personal history of other malignant neoplasm of bronchus and lung; Z92.3 Personal history of irradiation; I25.10 Atherosclerotic heart disease of native coronary artery without angina pectoris; I10 Essential (primary) hypertension; E78.5 Hyperlipidemia, unspecified; Z86.718 Personal history of other venous thrombosis and embolism; Z86.711 Personal history of pulmonary embolism; F17.210 Nicotine dependence, cigarettes, uncomplicated; Z79.51 Long term (current) use of inhaled steroids; Z79.01 Long term (current) use of anticoagulants; Z79.891 Long term (current) use of opiate analgesic
CPT/HCPCS: 43249; 43239; 88305; C1726; J2704; J7120

== ENCOUNTER 2022-11-25 08:55 | Outpatient (CLI) | payer MEDICARE, SELFPAY ==
--- NOTE | ~2022-11-25 | CT_ITS ---
Clinical Indication: Lung cancer CT Scan of the Chest with Contrast: Technique: Contiguous sections were acquired throughout the chest after intravenous administration of 75 cc of Omnipaque 350. Dose reduction technique was used on this scan by utilizing automated exposu re control and iterative reconstruction technique. The dose-length product (DLP) was 189.45 mGy-cm. COMPARISON: 06/22/2022 Findings: Stable left hilar/left upper lobe mass with coarse calcifications. There is relative retrac tion of the left hilum. There is stable left apical probable scarring or post relation change. There is probable focally calcified right hilar lymphadenopathy, unchanged. Additional focal areas of scarr ing in the right lower lobe are unchanged. Images through the upper abdomen reveal small gallstones. Stable bilateral adrenal nodules noted. Impression: Overall, probably no significant change from most recent prior exam. Stable left hilar/left upper lob e mass, which could reflect bronchogenic carcinoma or residual of treated disease. Probable additional scarring or postradiation change in the left upper lobe with associated retractio n of the left hilum. Focal areas of presumed scarring in the right lower lobe, unchanged. Stable bilateral adrenal nodules, which are indeterminate. Cholelithiasis. Reviewed, dictated and finalized at location . Impression: Overall, probably no significant change from most recent prior exam. Stable lef t hilar/left upper lobe mass, which could reflect bronchogenic carcinoma or res idual of treated disease. Probable additional scarring or postradiation change in the left upper lobe wit h associated retraction of the left hilum. Focal areas of presumed scarring in the right lower lobe, unchanged. Stable bilateral adrenal nodules, which are indeterminate. Cholelithiasis.
== END 2022-11-25 08:56 | disposition home or self-care (01) ==
LOC: CHSIMG 09:06
PROVIDERS: Visit Provider Internal Medicine Hematology & Oncology
DX: C34.12 Malignant neoplasm of upper lobe, left bronchus or lung (principal); R91.8 Other nonspecific abnormal finding of lung field; K80.20 Calculus of gallbladder without cholecystitis without obstruction
CPT/HCPCS: 71260; Q9967

== ENCOUNTER 2023-01-22 08:34 | Outpatient (CLI) | payer MEDICARE, SELFPAY ==
[2023-01-22 10:09] LABS: Prostate Specific Antigen 0.2 ng/mL (< OR = 4.0)
== END 2023-01-22 08:35 | disposition home or self-care (01) ==
DX: Z12.5 Encounter for screening for malignant neoplasm of prostate (principal)
CPT/HCPCS: 36415; 84153; G0103

== ENCOUNTER 2023-02-15 09:36 | Outpatient (CLI) | payer MEDICARE, SELFPAY ==
--- NOTE | ~2023-02-15 | CT_ITS ---
EXAMINATION:CT diagnostic chest w con DATE: 02/15/2023 10:39 INDICATION: Malignant neoplasm of upper lobe of left lung. TECHNIQUE: Computed tomography (CT) of the chest was performed with 75 mL Omnipaque 350 intravenous c ontrast. Automated exposure control and iterative reconstruction technique were employed. The dose-le ngth product (DLP) was 170.73 mGy-cm. COMPARISON: Chest CT 11/25/2022, 06/22/22, 04/09/21, 05/11/16 FINDINGS: There is mild emphysema. There is mild scarring and radiation fibrosis in the lungs, worst in left upper lobe and superior segment left lower lobe. Calcified bilateral hilar lymph nodes are co nsistent with old granulomatous disease. A tracey mass in aorticopulmonary window measures 3.4 x 1.5 c m and measured 3.7 x 1.6 cm on 06/22/22. No pleural effusion. The heart size is normal. There are coron josé miguel artery calcifications. No pericardial effusion. There are masses in the adrenal glands measuring up to 16 mm on the left without change from 05/11/2016, consistent with adenomas. There is a right int ernal jugular port with tip in superior vena cava. There are bridging endplate osteophytes at multipl e levels in the spine, consistent with diffuse idiopathic skeletal hyperostosis (DISH). There is mild chronic anterior wedging of multiple vertebral bodies. IMPRESSION: 1. Stable lymphadenopathy and aorticopulmonary window, consistent with metastatic disease. 2. Mild emphysema. 3. Mild scarring and radiation fibrosis in the lungs, worst in left upper lobe and superior segment l eft lower lobe. Reviewed, dictated and finalized at location E. IMPRESSION: 1. Stable lymphadenopathy and aorticopulmonary window, consistent with metastat ic disease. 2. Mild emphysema. 3. Mild scarring and radiation fibrosis in the lungs, worst in left upper lobe and superior segment left lower lobe.
[2023-02-15 10:34] LABS: Estimated Glomerular Filt Rate > 60
== END 2023-02-15 09:37 | disposition home or self-care (01) ==
LOC: ANHIMG 09:44
PROVIDERS: Visit Provider Internal Medicine Hematology & Oncology
DX: C34.12 Malignant neoplasm of upper lobe, left bronchus or lung (principal); R59.0 Localized enlarged lymph nodes; J43.9 Emphysema, unspecified; J70.1 Chronic and other pulmonary manifestations due to radiation
CPT/HCPCS: 71260; Q9967

== ENCOUNTER 2023-04-02 09:13 | Outpatient (CLI) | payer MEDICARE, SELFPAY ==
[2023-04-02 09:34] LABS: Basophils Absolute Auto 0.02 K/mm3 (0.00-0.10); Basophils Percent Auto 0.4 % (0.0-1.0); Eosinophils Absolute Auto 0.07 K/mm3 (0.02-0.50); Eosinophils Percent Auto 1.4 % (1.0-6.0); Hematocrit 37.2 % (40.0-54.0); Hemoglobin 12.7 g/dL (14.0-18.0); Immature Granulocyte Absolute 0.02 K/mm3 (0.00-0.00); Immature Granulocyte Percent A 0.4 % (0.0-0.0); Lymphocytes Absolute Auto 0.59 K/mm3 (1.10-4.50); Lymphocytes Percent Auto 11.5 % (18.0-42.0); Mean Corpuscular HGB Conc 34.1 g/dL (32.0-36.0); Mean Corpuscular Hemoglobin 37.7 pg (27.0-31.0); Mean Corpuscular Volume 110.4 fL (78.0-102.0); Mean Platelet Volume 9.2 fl (8.7-11.0); Monocytes Absolute Auto 0.46 K/mm3 (0.10-0.90); Monocytes Percent Auto 8.9 % (2.0-11.0); Neutrophils Percent Auto 77.4 % (50.0-70.0); Platelet Count Result 136 K/mm3 (150-420); Red Blood Count 3.37 M/mm3 (4.70-6.10); Red Cell Distribution Width 14.8 % (11.6-14.4); White Blood Count 5.2 K/mm3 (4.8-10.8)
[2023-04-02 09:36] LABS: Appearance Urine Clear (Clear); Bilirubin Urine Negative (Negative); Blood Urine Negative (Negative); Color Urine Yellow (Yellow); Glucose Urine UA Negative (Negative); Ketones Urine Negative (Negative); Leukocyte Esterase Ur Trace (Negative); Nitrate Urine Negative (Negative); Protein Urine Negative (Negative); Specific Grav Ur 1.015 (1.010-1.020)
[2023-04-02 09:42] LABS: Add Urine Microscopic? YES; Bacteria Urine None seen /hpf; RBC Urine None seen /hpf (0-2); Squamous Epithelial Cell Urine Rare /hpf (Few); WBC Urine None seen /hpf (0-3)
[2023-04-02 09:49] LABS: Alanine Aminotransferase 114 U/L (16-63); Albumin Level 3.1 g/dL (3.4-5.0); Alkaline Phosphatase 129 U/L (46-116); Anion Gap 2 mmol/L (8-16); Aspartate Amino Transferase 163 U/L (15-37); Bilirubin,Total 0.7 mg/dL (0.00-1.00); Blood Urea Nitrogen 6 mg/dL (7-18); Calcium 8.5 mg/dL (8.5-10.1); Carbon Dioxide 35 mmol/L (21-32); Chloride 98 mmol/L (98-108); Estimated Glomerular Filt Rate > 60; Glucose 94 mg/dL (70-99); Osmolality Calculated 277 mOsm/kg (285-295); Potassium 3.5 mmol/L (3.5-5.1); Sodium 135 mmol/L (136-145); Total Protein 6.3 g/dL (6.4-8.2)
== END 2023-04-02 09:14 | disposition home or self-care (01) ==
LOC: CHSLAB 09:16
DX: R10.30 Lower abdominal pain, unspecified (principal)
CPT/HCPCS: 36415; 80053; 81001; 85025; 87086

== ENCOUNTER 2023-05-19 10:00 | Outpatient (CLI) | payer MEDICARE, SELFPAY ==
--- NOTE | ~2023-05-19 | CT_ITS ---
Clinical Indication: Lung cancer CT Scan of the Chest with Contrast: Technique: Contiguous sections were acquired throughout the chest after intravenous administration of 75 cc of Omnipaque 350. Dose reduction technique was used on this scan by utilizing automated exposu re control and iterative reconstruction technique. The dose-length product (DLP) was 155.53 mGy-cm. COMPARISON: 02/15/2023 Findings: Prominent mediastinal lymph nodes with small internal calcifications are stable from prior exam.. The re is no filling defect in the pulmonary arterial tree to suggest pulmonary embolus. There is no evid ence of aortic dissection or aneurysm. There is no evidence of pleural or pericardial effusion. There are stable areas of minimal nodular scarring in the peripheral right lung. Stable probable scar ring and nodularity left lung apex. Images through the upper abdomen reveal stable bilateral adrenal nodules and tiny calcified gallstone . Impression: Stable pulmonary findings, as compatible with scarring and/or postradiation change, especially at the left upper lobe/left lung apex. Stable enlarged mediastinal lymph nodes with small areas of calcification. Findings could reflect seq uelae of treated disease versus possibly active metastatic disease. Correlate with treatment history. Reviewed, dictated and finalized at location . NING AIDE Impression: Stable pulmonary findings, as compatible with scarring and/or postradiation lucila nge, especially at the left upper lobe/left lung apex. Stable enlarged mediastinal lymph nodes with small areas of calcification. Find ings could reflect sequelae of treated disease versus possibly active metastati c disease. Correlate with treatment history.
[2023-05-19 10:25] LABS: Estimated Glomerular Filt Rate > 60
== END 2023-05-19 10:01 | disposition home or self-care (01) ==
LOC: ANHIMG 10:02
PROVIDERS: Visit Provider Internal Medicine Hematology & Oncology
DX: C34.12 Malignant neoplasm of upper lobe, left bronchus or lung (principal)
CPT/HCPCS: 71260; 96523; Q9967

== ENCOUNTER 2023-09-16 09:05 | Outpatient (CLI) | payer MEDICARE, SELFPAY ==
--- NOTE | ~2023-09-16 | CT_ITS ---
EXAMINATION:CT diagnostic chest w con DATE: 09/16/2023 09:25 INDICATION: Malignant neoplasm of upper lobe of left lung. TECHNIQUE: Computed tomography (CT) of the chest was performed with 75 mL Omnipaque 350 intravenous c ontrast. Automated exposure control and iterative reconstruction technique were employed. The dose-le ngth product (DLP) was 190.55 mGy-cm. COMPARISON: Chest CT 05/19/2023, 04/09/21 FINDINGS: There are airspace opacities with volume loss and architectural distortion involving left u pper lobe and left perihilar region, consistent with radiation pneumonitis. There is mild emphysema. There is mild atelectasis and scarring bilaterally. No pleural effusion. There is lymphadenopathy akbar suring 3.0 x 1.5 cm in the aorticopulmonary window with calcifications, stable from 05/19/2023. Calcifi ed hilar and mediastinal lymph nodes are consistent with old granulomatous disease. The heart size is normal. There are coronary artery calcifications. No pericardial effusion. There is a right subclavi an port with tip at superior cavoatrial junction. There are gallstones in the gallbladder, which is n ormal in size. There are masses in the adrenal glands measuring up to 1.7 cm on the left, stable from 04/09/21, likely adenomas. There are bridging endplate osteophytes at multiple levels in the spine, consistent with diffuse idiopathic skeletal hyperostosis (DISH). There is mild chronic anterior wedgi ng of multiple vertebral bodies. IMPRESSION: 1. Stable mediastinal lymphadenopathy with calcifications, consistent with treated metastatic disease . 2. Mild emphysema. 3. Stable radiation pneumonitis involving left upper lobe and perihilar left lung. Reviewed, dictated and finalized at location A. IMPRESSION: 1. Stable mediastinal lymphadenopathy with calcifications, consistent with ashok tameka metastatic disease. 2. Mild emphysema. 3. Stable radiation pneumonitis involving left upper lobe and perihilar left josé miguel ng.
[2023-09-16 09:22] LABS: Estimated Glomerular Filt Rate > 60
== END 2023-09-16 09:06 | disposition home or self-care (01) ==
PROVIDERS: Visit Provider Internal Medicine Hematology & Oncology
DX: C34.12 Malignant neoplasm of upper lobe, left bronchus or lung (principal); J43.9 Emphysema, unspecified
CPT/HCPCS: 71260; Q9967

== ENCOUNTER 2023-12-21 09:30 | Outpatient (CLI) | payer MEDICARE, SELFPAY ==
--- NOTE | 2024-01-10 21:00 | P.PCNPFT_ITS ---
PFT Procedure Performed PFT Procedure Performed Spirometry with Pre/Post Bronchodilator Plethysmography (Lung Vol) Diffusing Cap (DLCO) Flow Vol Loop PFT Interpretation DOS: 12/21/2023 REQUESTING: Thang Clinton MD REASON FOR TESTING: centrilobular emphysema PULMONARY FUNCTION TESTS Results are reliable and reproducible. Spirometry: The pre-bronchodilator FEV1 is 2.58 L, 78%. The pre-bronchodilator FVC is 4.49 L, 106%. The FEV1/FVC ratio is 58%. After bronchodilator, the FEV1 is unchanged. The FVC is 4.36 L, 103%, -3%. The FEV1/FVC ratio is 59%. Lung volumes: The total lung capacity is 7.84 L, 122%. The residual volume is 3.27 L, 143% consistent with air trapping. The RV/TLC is 42%. Increased airway resistance. Diffusion: DLCO is 15.1, 72%. The DLCO/VA is 2.87, 74%. Flow volume loop: The flow volume loop shows mild coving of the expiratory limb. IMPRESSION: Mild obstructive ventilatory impairment without response to bronchodilator, mild hyperinflation and mild air trapping, normal diffusion. Lack of response to bronchodilator should not preclude use if clinically in dicated. Compared to pulmonary function testing on 05/09/2013, there is a trend towards more obstruction, higher TLC and RV, and a trend toward lower diffusion. FEV1 was 3.66 L, 98%, now 2.58 L, 78%, this is the biggest change. FVC was 5.28 L, 111% now 4.49 L, 106%. The FEV1/ FVC ratio was 69%, now 59%. TLC was 7.58 L, 111%. RV was 2.30 L, 105%. DLCO was 22.2, 85%. No response to bronchodilator on prior testing. Daina Markham MD
== END 2023-12-21 09:31 | disposition home or self-care (01) ==
PROVIDERS: PCP Family Medicine; Visit Provider Family Medicine
DX: J43.2 Centrilobular emphysema (principal)
CPT/HCPCS: 94060; 94726; 94729

== ENCOUNTER 2024-01-17 09:28 | Outpatient (CLI) | payer MEDICARE, SELFPAY ==
--- NOTE | ~2024-01-17 | CT_ITS ---
Clinical Indication: Lung cancer CT Scan of the Chest with Contrast: Technique: Contiguous sections were acquired throughout the chest after intravenous administration of 75 cc of Omnipaque 350. Dose reduction technique was used on this scan by utilizing automated exposu re control and iterative reconstruction technique. The dose-length product (DLP) was 203.94 mGy-cm. COMPARISON: 09/16/2023 Findings: There is no evidence of any significant mediastinal, hilar or axillary lymphadenopathy. There is no f illing defect in the pulmonary arterial tree to suggest pulmonary embolus. There is no evidence of ao rtic dissection or aneurysm. There is no evidence of pleural or pericardial effusion. Stable irregular airspace disease and interstitial change extending from the left lung apex the left hilum, is compatible with radiation/chemotherapy change. Stable subcentimeter right lower lobe pulmon josé imguel nodules peripherally, likely areas of focal scarring or postinflammatory change. Images through the upper abdomen reveal stable bilateral adrenal nodules. Impression: No interval change. Stable post radiation/post therapy change in the left upper lobe. Stable subcentimeter peripheral right lower lobe pulmonary nodule, likely chronic scarring/postinflam matory change. Reviewed, dictated and finalized at location . Impression: No interval change. Stable post radiation/post therapy change in the left upper lobe. Stable subcentimeter peripheral right lower lobe pulmonary nodule, likely chron ic scarring/postinflammatory change.
== END 2024-01-17 09:29 | disposition home or self-care (01) ==
PROVIDERS: Visit Provider Internal Medicine Hematology & Oncology
DX: R91.1 Solitary pulmonary nodule (principal); C34.12 Malignant neoplasm of upper lobe, left bronchus or lung
CPT/HCPCS: 71260; Q9967

== ENCOUNTER 2024-01-18 08:38 | Outpatient (CLI) | payer MEDICARE, SELFPAY ==
[2024-01-18 10:08] LABS: Prostate Specific Antigen 0.3 ng/mL (< OR = 4.0)
[2024-01-19 09:09] LABS: Hepatitis B Core Ab Total NON-REACTIVE (NON-REACTIVE)
[2024-01-19 10:43] LABS: Hepatitis B Surface Antibody NON-REACTIVE (NON-REACTIVE)
[2024-01-20 03:19] LABS: Hepatitis B Surface Antigen NON-REACTIVE (NON-REACTIVE)
== END 2024-01-18 08:39 | disposition home or self-care (01) ==
DX: Z11.59 Encounter for screening for other viral diseases (principal); Z12.5 Encounter for screening for malignant neoplasm of prostate; Z72.89 Other problems related to lifestyle
CPT/HCPCS: 36415; 84153; 86704; 86706; 87340; G0103

== ENCOUNTER 2024-06-16 11:55 | Emergency (ER) | payer MEDICARE, SELFPAY ==
[2024-06-16] VITALS (7 sets, daily range): BP systolic 110–127; BP diastolic 74–84; PULSE 75–87; RESP 16–22; TEMP 37.2; O2SAT 89–92
--- NOTE | 2024-06-16 11:58 | ED.URI ---
HPI - URI/Sore Throat General Chief Complaint: Upper Respiratory Infection Stated Complaint: cold symptoms Time Seen by Provider: 06/16/24 11:57 Source: patient Mode of arrival: ambulatory Limitations: no limitations History of Present Illness HPI Narrative: 59-year-old male with a history of alcoholism,hypertension, dyslipidemia, CAD status post LAD stent in 2010, DVT/ PE on Xarelto, metastatic squamous cell lung cancer status post chemo / RT in 2021, COPD presents to the ED with a 1 day history of -- chills without any fever -- nasal congestion -- sore throat -- cough with mucoid expectoration -- chronic shortness of breath -- nausea without any vomiting. He has chronic diarrhea\ -- Dizziness which is worse on sitting up MD elicited complaint: cough, sore throat and nasal congestion Pertinent past history: COPD Onset (ago): day(s) ( 1 day) Consistency: constant Description of mucous: clear Able to tolerate fluids by mouth: Yes Exacerbating factors: nothing Relieving factors: nothing Associated symptoms: denies other symptoms, chills, voice changes, nasal congestion, sore throat, cough, shortness of breath, nausea and diarrhea Treatments prior to arrival: none Related Data Home Medications ?Medication ?Instructions ?Recorded ?Confirmed ?Last Taken ?Type albuterol sulfate 90 mcg/actuation 2 puff inhalation QID PRN 06/16/21 02/24/24 07/05/21 History aerosol inhaler Bronchospasm aspirin 81 mg tablet,delayed 81 mg PO DAILY 06/16/21 02/24/24 07/05/21 History release (Evaristo Low Dose Aspirin) atorvastatin 40 mg tablet 40 mg PO DAILY 06/16/21 02/24/24 07/05/21 History carvedilol 25 mg tablet 25 mg PO BID 06/16/21 02/24/24 07/06/21 History pantoprazole 40 mg tablet,delayed 40 mg PO BID 06/16/21 02/24/24 07/05/21 History release rivaroxaban 20 mg tablet (Xarelto) 20 mg PO DAILY 06/16/21 02/24/24 07/25/22 History folic acid 1 mg PO DAILY 08/06/21 02/24/24 Unknown History hydrocodone 10 mg-acetaminophen 1 tablet PO Q4H PRN Pain 08/06/21 02/24/24 Unknown History 300 mg tablet megestrol 400 mg/10 mL (10 mL) 400 mg PO DAILY 01/25/22 02/24/24 Unknown History oral suspension lisinopril 5 mg tablet 5 mg PO DAILY 07/16/22 02/24/24 Unknown History nitroglycerin 0.4 mg sublingual See Rx Instructions .Route .COMPLEX 07/16/22 02/24/24 Unknown History tablet Allergies Allergy/AdvReac Type Severity Reaction Status Date / Time No Known Allergies Allergy Verified 06/16/24 11:59 Review of Systems Review of Systems: All systems reviewed & are unremarkable except as noted in HPI and below Constitutional: Constitutional: Reports as per HPI, Reports no additional constitutional complaints and Reports chills Eyes: Eyes: Reports as per HPI and Reports no additional eye complaints ENT: Reports system reviewed and no additional complaints, except as documented and Reports as per HPI Cardiovascular: Cardiovascular: Reports as per HPI and Reports no additional cardiovascular complaints Comments: dizziness which is worse on sitting or standing up. Respiratory: Respiratory: Reports as per HPI, Reports no additional respiratory complaints, Reports cough, Reports dyspnea and Reports wheezing Gastrointestinal: Gastrointestinal: Reports as per HPI, Reports no additional gastrointestinal complaints, Reports diarrhea and Reports nausea Genitourinary: Genitourinary: Reports no additional male genitourinary complaints and Reports as per HPI Musculoskeletal: Musculoskeletal: Reports no additional musculoskeletal complaints and Reports as per HPI Integumentary/Breasts: Skin/Breast: Reports system reviewed and no additional complaints, except as docu and Reports as per HPI Neurologic: Reports system reviewed and no additional complaints, except as documented, Reports as per HPI and Reports dizziness Psychiatric: Psychiatric: Reports no additional psychiatric complaints and Reports as per HPI Endocrine: Endocrine: Reports no additional endocrine complaints and Reports as per HPI Hematologic/Lymphatic: Hematologic/Lymphatic: Reports no additional hematologic/lymphatic complaints and Reports as per HPI Allergic/Immunologic: Allergic/Immunologic: Reports no additional allergic/immunologic complaints and Reports as per HPI FOR[facility]LY [facility] Past Medical History Medical History Dysphagia DVT (deep venous thrombosis) Pulmonary embolism Hypertension Hyperlipidemia CAD (coronary artery disease) Lung cancer Surgical History Surgical History Stented coronary artery Social History Social History Smoking packs per day: 1 Smoking cigarettes per day: 20.0 Years smoked: 45 Smoking pack-years: 45.00 Smoking status: Current every day smoker Tobacco type: cigarettes Additional smoking assessment comments: CUT BACK TO TO 1PK/DAY SINCE 12/2021 Alcohol intake: current Drinks per week: 12 Alcohol use details: BEERS Substance use: former Substance use type: crack/cocaine Living arrangements: with family Spiritual care concerns: No Exam Narrative: oxygen saturation of 92% on room air with a respiratory rate of 22. Afebrile. Dizziness on sitting up or standing Const: General: ill appearing Nutritional Appearance: thin Orientation/consciousness: patient oriented x3 Limitations: no limitations HENMT: Head: normal to inspection Ears: external ears normal Face/Nose/Sinus: Normal external nose present Face and sinus: normal facial exam Mouth: Yes Normal oral and palatal mucosa present Throat: posterior oropharynx normal ( Pharyngeal erythema) Eyes: Conjunctivae: conjunctivae normal Pupils: Equal, round and reactive pupils present EOM: EOMs intact bilaterally Direct Ophthalmoscopy: no photophobia Neck: Neck: normal visual inspection, no lymphadenopathy and no meningeal signs Chest: Chest palpation & inspection: normal inspection of the chest Resp: Auscultation: wheezes and diminished lung sounds Cardio: Rate: regular rate Rhythm: regular rhythm GI: GI Palp: Yes Soft to palpation Auscultation: normal bowel sounds Other: no tenderness/ rigidity /rebound. : General: Yes no CVA tenderness Back/Spine/Pelvis: Back: no CVA tenderness Skin: General skin exam: normal color Rashes: no rashes Wounds: no wounds Neuro: General: patient oriented x3, moves all extremities, no meningeal signs, no focal motor deficits and CN's II-XI intact bilaterally Cranial nerves: Yes Nystagmus not present Speech: normal speech Extrem: General: normal to inspection and no clubbing, cyanosis or edema Psych: Mental Status: mental status grossly normal Affect: normal affect Course Course Emergency Course: upper respiratory tract infection-- patient tested negative for influenza /RSV / COVID. dizziness-- No focal neuro deficit noted. Patient has dizziness which is made worse by sitting up or standing. Give 500 mL of IV fluids. CT of the head did not show any acute findings COPD-- ongoing cough with mucoid sputum. Chest x-ray did not show any evidence of pneumonia. Would give a course of Zithromax for COPD and have the patient continue his bronchodilators new right middle lobe lesion measuring 1.8 cmX .9 cms. thrombocytopenia-- possibly related to alcoholism alcoholic hepatitis-- with elevated AST, ALT and bilirubin. Advised the patient to quit drinking. Will stop statins and megestrol elevated lactate-- a 500 mL of LR. Would not give any for the LR as elevated lactate appears to be secondary to inability of the liver to metabolize lactate. patient refused admission. He wants to leave [place]. Vital Signs Vital signs: Vital Signs Temperature 37.2 C 06/16/24 11:57 Pulse Rate 87 06/16/24 11:57 Respiratory Rate 22 H 06/16/24 11:57 Blood Pressure 120/83 06/16/24 11:57 Pulse Oximetry 92 06/16/24 11:57 Oxygen Delivery Room Air 06/16/24 11:57 Temperature 37.2 C 06/16/24 11:57 Pulse Rate 78 06/16/24 13:30 Respiratory Rate 17 06/16/24 13:30 Blood Pressure 110/74 06/16/24 13:30 Pulse Oximetry 90 06/16/24 13:30 Oxygen Delivery Room Air 06/16/24 12:37 MDM - URI/Sore Throat MDM Narrative Medical decision making narrative: Alcoholic hepatitis thrombocytopenia new right middle lobe lesion COPD upper respiratory tract infection Differential Diagnosis Differential diagnosis: Likely upper respiratory infection and viral infection Medical Records Attestation: I reviewed the patient's medical records. Lab Data Attestation: I reviewed the patient's lab results. 06/16/24 12:25 06/16/24 12:25 Labs: Lab Results 06/16/24 06/16/24 06/16/24 Range/Units 12:13 12:20 12:25 WBC 5.0 (4.8-10.8) K/mm3 RBC 3.44 L (4.70-6.10) M/mm3 Hgb 11.9 L (14.0-18.0) g/dL Hct 32.5 L (40.0-54.0) % MCV 94.5 (78.0-102.0) fL MCH 34.6 H (27.0-31.0) pg MCHC 36.6 H (32-36) g/dL RDW 18.2 H (11.6-14.4) % Plt Count 83 L (150-420) K/mm3 MPV 9.9 (8.7-11.0) fl Immature Gran % (Auto) Not Reportable Neut % (Auto) Not Reportable Lymph % (Auto) Not Reportable [place] % (Auto) Not Reportable Eos % (Auto) Not Reportable Baso % (Auto) Not Reportable Lymph # (Auto) Not Reportable [place] # (Auto) Not Reportable Eos # (Auto) Not Reportable Baso # (Auto) Not Reportable Abs Immat Gran (auto) Not Reportable Absolute Neuts (auto) Not Reportable Absolute Nucleated RBC Not Reportable Total Counted 100 Neutrophils % (Manual) 83 H (46-73) % Band Neutrophils % 0 (0-6) % Lymphocytes % (Manual) 10 L (18-44) % Monocytes % (Manual) 6 (3-9) % Eosinophils % (Manual) 1 (1-6) % Nucleated RBC % Not Reportable Abs Neuts (Manual) 4.15 (1.3-6.7) K/mm3 Abs Lymphs (Manual) 0.50 L (1.1-4.5) K/mm3 Abs Monocytes (Manual) 0.30 (0.1-0.90) K/mm3 Absolute Eos (Manual) 0.05 (0.02-0.50) K/mm3 Platelet Estimate Decreased (Adequate) % Immature Plt Fraction 4.2 (1.0-7.0) % Schistocytes Not Reportable PT 14.7 H (9.50-12.1) Seconds INR 1.4 APTT 29.8 (23.9-30.70) Sec Sodium 138 (136-145) mmol/L Potassium 3.7 (3.5-5.1) mmol/L Chloride 97 L (98-108) mmol/L Carbon Dioxide 33 H (21-32) mmol/L Anion Gap 8 (4-12) mmol/L BUN 12 (7-18) mg/dL Creatinine 0.95 (0.70-1.30) mg/dL Estim Creat Clear Calc 68 ml/min Estimated GFR > 60 (59 - ) Glucose 175 H (70-99) mg/dL Calculated Osmolality 289 (285-295) mOsm/kg Lactic Acid 4.5 H (0.4-2.0) mmol/L Calcium 7.7 L (8.5-10.1) mg/dL Total Bilirubin 1.6 H (0.00-1.00) mg/dL AST 573 H (15-37) U/L ALT 243 H (16-63) U/L Alkaline Phosphatase 310 H (46-116) U/L Ammonia 50 H (11-32) umol/L Troponin I 8.6 (0.00-60.4) ng/L NT-Pro-B Natriuret Pep 133 H (0-125) pg/mL Total Protein 6.0 L (6.4-8.2) g/dL Albumin 2.5 L (3.4-5.0) g/dL Influenza A (RT-PCR) Negative (Negative) Influenza B (RT-PCR) Negative (Negative) RSV (RT-PCR) Negative (Negative) SARS-CoV-2 RNA (RT-PCR) Negative (Negative) ECG Data EKG #1: ECG completion date: 06/16/24 ECG completion time: 12:23 Interpretation: normal sinus rhythm. Normal axis. No ST elevation noted. Discharge Plan Discharge Clinical Impression: COPD exacerbation, Thrombocytopenia, Mass of right lung Upper respiratory infection Qualifiers: URI type: unspecified URI Qualified Code(s): J06.9 - Acute upper respiratory infection, unspecified Alcoholic hepatitis Qualifiers: Ascites presence: unspecified Qualified Code(s): K70.10 - Alcoholic hepatitis without ascites Patient Disposition: Left Against Medical Advice Condition: Stable Instructions: Antibiotic Form, Upper Respiratory Infection (ED), COPD (Chronic Obstructive Pulmonary Disease) (ED), Alcoholic Hepatitis (ED) Additional Instructions: advised the patient to stop drinking. Advise the patient to stop statin and a chest roll. Advised the patient about getting CT of the chest for the new right middle lobe lesion. advised him to follow up with his cancer doctor Advised to stop atorvastatin and megestrol Patient Language: Nigerian Prescriptions: New azithromycin [Zithromax] 250 mg tablet See Rx Instructions .ROUTE .COMPLEX Qty: 6 0RF Rx Instructions: For 250 mg dose pack: take 500 mg today (day 1), then 250 mg for 4 days (days 2-5) No Action atorvastatin 40 mg Tablet 40 mg PO DAILY carvedilol 25 mg Tablet 25 mg PO BID aspirin [Evaristo Low Dose Aspirin] 81 mg Tablet,Delayed Release (Dr/Ec) 81 mg PO DAILY pantoprazole 40 mg Tablet,Delayed Release (Dr/Ec) 40 mg PO BID albuterol sulfate 90 mcg/actuation Hfa Aerosol Inhaler 2 puff INHALATION QID PRN (Reason: Bronchospasm) Xarelto 20 mg Tablet 20 mg PO DAILY sucralfate 1 gram Tablet See Rx Instructions .ROUTE .COMPLEX Qty: 60 1RF Patient Comments: not taking Rx Instructions: Dissolve 1 tablet (1gm) in 15 ml water and drink at least 1 hour prior to meals and at bedtime as needed for sore throat and/or esophagitis. folic acid 1 mg PO DAILY Patient Comments: not taking hydrocodone-acetaminophen 10-300 mg Tablet 1 tablet PO Q4H PRN (Reason: Pain) megestrol 400 mg/10 mL (10 mL) Suspension 400 mg PO DAILY Breztri Aerosphere 160-9-4.8 mcg/actuation HFA aerosol inhaler 2 inh inhalation QAM AND QPM 30 Days Qty: 10.7 5RF Rx Instructions: rinse and spit, use with spacer albuterol sulfate 2.5 mg /3 mL (0.083 %) solution for nebulization 2.5 mg inhalation Q4-6H PRN (Reason: shortness of breath or wheezing) Qty: 360 2RF azithromycin 250 mg tablet See Rx Instructions PO .COMPLEX Qty: 6 0RF Rx Instructions: For 250 mg dose pack: take 500 mg today (day 1), then 250 mg for 4 days (days 2-5) PO nitroglycerin 0.4 mg tablet, sublingual See Rx Instructions .ROUTE .COMPLEX Rx Instructions: . lisinopril 5 mg Tablet 5 mg PO DAILY Patient Comments: states he does not always take Follow-up/Referrals: UNKNOWN,DOCTOR [Primary Care Provider] - Time of Disposition: 14:11
--- NOTE | 2024-06-16 12:25 | PC.NURSE ---
Patient down in radiology
[2024-06-16 12:31] LABS: Hematocrit 32.5 % (40.0-54.0); Hemoglobin 11.9 g/dL (14.0-18.0); Immature Platelet Fraction Pct 4.2 % (1.0-7.0); Mean Corpuscular HGB Conc 36.6 g/dL (32-36); Mean Corpuscular Hemoglobin 34.6 pg (27.0-31.0); Mean Corpuscular Volume 94.5 fL (78.0-102.0); Mean Platelet Volume 9.9 fl (8.7-11.0); Platelet Count Result 83 K/mm3 (150-420); Red Blood Count 3.44 M/mm3 (4.70-6.10); Red Cell Distribution Width 18.2 % (11.6-14.4)
[2024-06-16 12:44] LABS: Band Neutrophils Percent 0 % (0-6); Eosinophils Absolute Manual 0.05 K/mm3 (0.02-0.50); Eosinophils Percent Manual 1 % (1-6); Lymphocytes Percent Manual 10 % (18-44); Monocytes Percent Manual 6 % (3-9); Neutrophils Absolute Manual 4.15 K/mm3 (1.3-6.7); Neutrophils Percent Manual 83 % (46-73); Platelet Estimate Decreased (Adequate); Total Cells Counted 100
[2024-06-16] MEDS: IPRATROPIUM 0.5 MG/ALBUTEROL SULFATE 2.5 MG AMPUL.NEB 3 ML INHALATION (12:49)
[2024-06-16 12:50] LABS: Influenza A QL RT-PCR Negative (Negative); Influenza B QL RT-PCR Negative (Negative); RSV RNA, RT-PCR Negative (Negative); SARS-CoV-2 RNA PCR Negative (Negative)
[2024-06-16 12:50] LABS: Lactic Acid Reflex 4.5 mmol/L (0.4-2.0)
[2024-06-16] MEDS: LACTATED RINGERS 500 ML 999 ML IV CONT (12:53)
[2024-06-16 13:00] LABS: Alanine Aminotransferase 243 U/L (16-63); Albumin Level 2.5 g/dL (3.4-5.0); Alkaline Phosphatase 310 U/L (46-116); Anion Gap 8 mmol/L (4-12); Aspartate Amino Transferase 573 U/L (15-37); Bilirubin,Total 1.6 mg/dL (0.00-1.00); Blood Urea Nitrogen 12 mg/dL (7-18); Calcium 7.7 mg/dL (8.5-10.1); Carbon Dioxide 33 mmol/L (21-32); Chloride 97 mmol/L (98-108); Estimated CRCL calculation 68 ml/min; Estimated Glomerular Filt Rate > 60; Glucose 175 mg/dL (70-99); Osmolality Calculated 289 mOsm/kg (285-295); Potassium 3.7 mmol/L (3.5-5.1); Sodium 138 mmol/L (136-145); Troponin I 8.6 ng/L (0.00-60.4)
[2024-06-16 13:05] LABS: NT Pro B Type Natriuretic Pept 133 pg/mL (0-125)
[2024-06-16 13:52] LABS: Ammonia 50 umol/L (11-32)
[2024-06-16 13:55] LABS: INR 1.4; Partial Thromboplastin Time 29.8 Sec (23.9-30.70); Prothrombin Time 14.7 Seconds (9.50-12.1)
--- NOTE | 2024-06-16 14:02 | PC.NURSE ---
ERP went to speak with patient regarding admission, Patient refuses. ERP explained the risk of leaving versus medical treatment, patient still refuses to stay or be admitted. Patient alert and oriented, able to make medical decisions at this time. AMA form signed by patient. IV Removed.
[2024-06-16 15:28] LABS: Reflex Lactic Acid Yes or No Add Lactic
== END 2024-06-16 14:16 | disposition left against medical advice (07) ==
PROVIDERS: Emergency Provider Internal Medicine Critical Care Medicine
DX: J44.1 Chronic obstructive pulmonary disease with (acute) exacerbation (principal); D69.6 Thrombocytopenia, unspecified; J06.9 Acute upper respiratory infection, unspecified; K70.10 Alcoholic hepatitis without ascites; R91.8 Other nonspecific abnormal finding of lung field; I25.10 Atherosclerotic heart disease of native coronary artery without angina pectoris; I10 Essential (primary) hypertension; F17.210 Nicotine dependence, cigarettes, uncomplicated; Z85.118 Personal history of other malignant neoplasm of bronchus and lung; Z79.01 Long term (current) use of anticoagulants; Z86.718 Personal history of other venous thrombosis and embolism; Z20.822 Contact with and (suspected) exposure to COVID-19
CPT/HCPCS: 36415; 70450; 71045; 80053; 82140; 83605; 83880; 84484; 85025; 85055; 85610; 85730; 87637; 93005; 99284; J7120

== ENCOUNTER 2024-06-17 12:44 | Emergency (ER) | payer MEDICARE, SELFPAY ==
[2024-06-17 12:45] VITALS: BP 131/95; PULSE 96; RESP 22; TEMP 37.8
--- NOTE | 2024-06-17 12:50 | ED.GENADULT ---
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 He is here with not feeling well and weakness with dizziness. He was here yesterday and was told to transfer for higher level medical care but he declined and went AMA. His ammonia was elevated but in general he is AAO x4. He came to the ER on his own device and asks for help this time. He stopped drinking alcohol 4 days ago and has had the shakes but not at this time. He does not have DT history or seizures. patient had lung cancer and left neck lymph nodes positive so he was treated up until the end of last year and has a port in his right chest. Patient takes Xarelto. No head injuries. Onset (ago): week(s) ( One) Location: head ( dizziness and generalized weakness) Radiation: non-radiation Severity: moderate Severity scale (1-10): 4 Quality: other ( no definite pain) Pain Consistency: other ( no definite pain) Relieving factors: none Exacerbating factors: other ( patient stopped alcohol 4 days ago) Associated symptoms: confusion, loss of appetite, malaise, shortness of breath and weakness Treatments prior to arrival: none Related Data Home Medications ?Medication ?Instructions ?Recorded ?Confirmed ?Last Taken ?Type albuterol sulfate 90 mcg/actuation 2 puff inhalation QID PRN 06/16/21 02/24/24 07/05/21 History aerosol inhaler Bronchospasm aspirin 81 mg tablet,delayed 81 mg PO DAILY 06/16/21 02/24/24 07/05/21 History release (Evaristo Low Dose Aspirin) atorvastatin 40 mg tablet 40 mg PO DAILY 06/16/21 02/24/24 07/05/21 History carvedilol 25 mg tablet 25 mg PO BID 06/16/21 02/24/24 07/06/21 History pantoprazole 40 mg tablet,delayed 40 mg PO BID 06/16/21 02/24/24 07/05/21 History release rivaroxaban 20 mg tablet (Xarelto) 20 mg PO DAILY 06/16/21 02/24/24 07/25/22 History folic acid 1 mg PO DAILY 08/06/21 02/24/24 Unknown History hydrocodone 10 mg-acetaminophen 1 tablet PO Q4H PRN Pain 08/06/21 02/24/24 Unknown History 300 mg tablet megestrol 400 mg/10 mL (10 mL) 400 mg PO DAILY 01/25/22 02/24/24 Unknown History oral suspension lisinopril 5 mg tablet 5 mg PO DAILY 07/16/22 02/24/24 Unknown History nitroglycerin 0.4 mg sublingual See Rx Instructions .Route .COMPLEX 07/16/22 02/24/24 Unknown History tablet Allergies Allergy/AdvReac Type Severity Reaction Status Date / Time No Known Allergies Allergy Verified 06/16/24 11:59 Review of Systems Review of Systems: All systems reviewed & are unremarkable except as noted in HPI and below Constitutional: Constitutional: Reports no additional constitutional complaints Eyes: Eyes: Reports no additional eye complaints ENT: Reports system reviewed and no additional complaints, except as documented Cardiovascular: Cardiovascular: Reports no additional cardiovascular complaints Respiratory: Respiratory: Reports no additional respiratory complaints Gastrointestinal: Gastrointestinal: Reports no additional gastrointestinal complaints Genitourinary: Genitourinary: Reports no additional male genitourinary complaints Musculoskeletal: Musculoskeletal: Reports no additional musculoskeletal complaints Integumentary/Breasts: Skin/Breast: Reports system reviewed and no additional complaints, except as docu Neurologic: Reports system reviewed and no additional complaints, except as documented Psychiatric: Psychiatric: Reports no additional psychiatric complaints Endocrine: Endocrine: Reports no additional endocrine complaints Hematologic/Lymphatic: Hematologic/Lymphatic: Reports no additional hematologic/lymphatic complaints Allergic/Immunologic: Allergic/Immunologic: Reports no additional allergic/immunologic complaints [facility] Past Medical History Medical History Dysphagia DVT (deep venous thrombosis) Pulmonary embolism Hypertension Hyperlipidemia CAD (coronary artery disease) Lung cancer Surgical History Surgical History Stented coronary artery Social History Social History Smoking packs per day: 1 Smoking cigarettes per day: 20.0 Years smoked: 45 Smoking pack-years: 45.00 Smoking status: Current every day smoker Tobacco type: cigarettes Additional smoking assessment comments: CUT BACK TO TO 1PK/DAY SINCE 12/2021 Alcohol intake: current Drinks per week: 12 Alcohol use details: BEERS Substance use: former Substance use type: crack/cocaine Living arrangements: with family Spiritual care concerns: No Exam Const: General: ill appearing Nutritional Appearance: thin Orientation/consciousness: patient oriented x3 Limitations: no limitations HENMT: Head: normal to inspection Ears: external ears normal Face/Nose/Sinus: Normal external nose present Eyes: Conjunctivae: conjunctivae normal Pupils: Equal, round and reactive pupils present EOM: EOMs intact bilaterally Neck: Neck: normal visual inspection Chest: Chest palpation & inspection: normal inspection of the chest Resp: Effort & Inspection: normal respiratory effort, not labored, no retractions, not tachypneic and no use of accessory muscles Auscultation: not clear to auscultation bilaterally, no crackles, no rales, rhonchi, no wheezes, breath sounds present and diminished lung sounds Cardio: Rate: regular rate Rhythm: regular rhythm Heart sounds: no murmurs GI: Inspection: non-distended GI Palp: Yes Soft to palpation, No Tenderness to palpation present (GI), No Guarding due to palpation present (GI), No Rigid due to palpation, No Hernia present, No Palpable mass present and No Rebound tenderness present Auscultation: normal bowel sounds : General: Yes bladder normal to palpation Back/Spine/Pelvis: Back: no CVA tenderness Skin: General skin exam: normal color Rashes: no rashes Wounds: no wounds Neuro: General: patient oriented x3 Cranial nerves: Yes Nystagmus not present Speech: normal speech Gait exam (Neuro): Normal gait present Other: Fast exam is negative, NIH score is 0, GCS is 15 Extrem: General: normal to inspection Psych: Mental Status: mental status grossly normal Affect: normal affect Attitude: cooperative Course Vital Signs Vital signs: Vital Signs Temperature 37.8 C H 06/17/24 12:45 Pulse Rate 96 06/17/24 12:45 Respiratory Rate 22 H 06/17/24 12:45 Blood Pressure 131/95 H 06/17/24 12:45 Temperature 37.8 C H 06/17/24 12:45 Pulse Rate 96 06/17/24 12:45 Respiratory Rate 22 H 06/17/24 12:45 Blood Pressure 131/95 H 06/17/24 12:45 Medical Decision Making [facility] Narrative Medical decision making narrative: patient is a 59-year-old male with alcohol disorder and stopped drinking 4 days ago. He is in end of the withdrawal process. He is having weakness and dizziness. We will do a complete workup at this time as he left AMA yesterday. We will stop azithromycin with QT prolonged. We will use Ativan as needed as this is day 4 of withdrawal from alcohol. We will give him a GI cocktail for gastritis. We will give him a copy of his CT scan results to bring to his doctor in the next 1-2 days for further cancer workup. Continue to stop alcohol consumption. Further and repeat labs as follow up with the primary doctor. Fdyy-vub-[id number] magnesium. Vital Signs Vital Signs: Vital Signs Temperature 37.8 C H 06/17/24 12:45 Pulse Rate 96 06/17/24 12:45 Respiratory Rate 22 H 06/17/24 12:45 Blood Pressure 131/95 H 06/17/24 12:45 Temperature 37.8 C H 06/17/24 12:45 Pulse Rate 96 06/17/24 12:45 Respiratory Rate 22 H 06/17/24 12:45 Blood Pressure 131/95 H 06/17/24 12:45 Lab Data Lab results reviewed: Yes I reviewed the patient's lab results. 06/17/24 13:06 06/17/24 13:06 Labs: Lab Results 06/17/24 06/17/24 Range/Units 13:06 14:22 WBC 6.6 (4.8-10.8) K/mm3 RBC 3.31 L (4.70-6.10) M/mm3 Hgb 11.5 L (14.0-18.0) g/dL Hct 31.5 L (40.0-54.0) % MCV 95.2 (78.0-102.0) fL MCH 34.7 H (27.0-31.0) pg MCHC 36.5 H (32-36) g/dL RDW 17.0 H (11.6-14.4) % Plt Count 61 L (150-420) K/mm3 MPV 10.1 (8.7-11.0) fl Immature Gran % (Auto) Not Reportable Neut % (Auto) Not Reportable Lymph % (Auto) Not Reportable [place] % (Auto) Not Reportable Eos % (Auto) Not Reportable Baso % (Auto) Not Reportable Lymph # (Auto) Not Reportable [place] # (Auto) Not Reportable Eos # (Auto) Not Reportable Baso # (Auto) Not Reportable Abs Immat Gran (auto) Not Reportable Absolute Neuts (auto) Not Reportable Absolute Nucleated RBC Not Reportable Total Counted 100 Neutrophils % (Manual) 88 H (46-73) % Band Neutrophils % 3 (0-6) % Lymphocytes % (Manual) 4 L (18-44) % Monocytes % (Manual) 5 (3-9) % Nucleated RBC % Not Reportable Abs Neuts (Manual) 6.00 (1.3-6.7) K/mm3 Abs Lymphs (Manual) 0.26 L (1.1-4.5) K/mm3 Abs Monocytes (Manual) 0.33 (0.1-0.90) K/mm3 Platelet Estimate Decreased (Adequate) % Immature Plt Fraction 7.2 H (1.0-7.0) % Schistocytes Not Reportable PT 13.7 H (9.50-12.1) Seconds INR 1.3 APTT 26.4 (23.9-30.70) Sec D-Dimer 1.00 H* (0.19-0.50) mg/L Sodium 130 L (136-145) mmol/L Potassium 3.5 (3.5-5.1) mmol/L Chloride 93 L (98-108) mmol/L Carbon Dioxide 34 H (21-32) mmol/L Anion Gap 3 L (4-12) mmol/L BUN 5 L (7-18) mg/dL Creatinine 0.70 (0.70-1.30) mg/dL Estim Creat Clear Calc 93 ml/min Estimated GFR > 60 (59 - ) Glucose 155 H (70-99) mg/dL Calculated Osmolality 270 L (285-295) mOsm/kg Lactic Acid 1.8 (0.4-2.0) mmol/L Calcium 8.1 L (8.5-10.1) mg/dL Magnesium 1.5 L (1.8-2.4) mg/dL Total Bilirubin 2.3 H (0.00-1.00) mg/dL AST 338 H (15-37) U/L ALT 205 H (16-63) U/L Alkaline Phosphatase 286 H (46-116) U/L Ammonia 32 (11-32) umol/L Troponin I 9.9 (0.00-60.4) ng/L NT-Pro-B Natriuret Pep 869 H (0-125) pg/mL Total Protein 6.2 L (6.4-8.2) g/dL Albumin 2.6 L (3.4-5.0) g/dL Urine Color Light yellow (Yellow) Urine Appearance Clear (Clear) Urine pH 8.0 (5.0-8.0) Ur Specific Circle 1.010 (1.010-1.020) Urine Protein Negative (Negative) Urine Glucose (UA) Negative (Negative) Urine Ketones Negative (Negative) Ur Blood (Man) Negative (Negative) Urine Nitrate Negative (Negative) Urine Bilirubin Negative (Negative) Urine Urobilinogen 0.2 (0.2-1.0) mg/dL Leukocyte Esterase Rfl Negative (Negative) [place]/UL Influenza A (RT-PCR) Negative (Negative) Influenza B (RT-PCR) Negative (Negative) RSV (RT-PCR) Negative (Negative) SARS-CoV-2 RNA (RT-PCR) Negative (Negative) Imaging Data Attestation: I personally reviewed and interpreted this imaging study as follows: ECG Data EKG #1: Attestation: I personally reviewed and interpreted this ECG as follows: ECG completion date: 06/17/24 ECG completion time: 14:38 EKG Interpretation: normal rate, sinus rhythm, no ectopy, non-specific ST changes, normal QRS, prolonged QT and NL axis Discharge Plan Discharge Clinical Impression: Alcoholism, Thrombocytopenia, Prolonged QT interval, Transaminitis, Lung mass Patient Disposition: Home, Self-Care Condition: Improved Instructions: Abuse of Alcohol (ED), Alcohol Use Disorder (ED) Additional Instructions: Please follow-up with the primary doctor in the next 1-2 days. You will need further workup on the lung nodule seen on the CT scan very soon. These could be cancerous areas. Further, stop taking the antibiotic azithromycin at this time. I have given you Ativan for as needed if you get agitated. Do not drink any more alcohol. You are on day 4 of withdrawal and should be getting better each day. Please get magnesium oxide to use twice a day for the next week. Patient Language: Prydeinig Prescriptions: New lorazepam [Ativan] 0.5 mg tablet 0.5 mg PO Q6H PRN (Reason: agitation) Qty: 20 0RF No Action azithromycin [Zithromax] 250 mg tablet See Rx Instructions .ROUTE .COMPLEX Qty: 6 0RF Rx Instructions: For 250 mg dose pack: take 500 mg today (day 1), then 250 mg for 4 days (days 2-5) atorvastatin 40 mg Tablet 40 mg PO DAILY carvedilol 25 mg Tablet 25 mg PO BID aspirin [Evaristo Low Dose Aspirin] 81 mg Tablet,Delayed Release (Dr/Ec) 81 mg PO DAILY pantoprazole 40 mg Tablet,Delayed Release (Dr/Ec) 40 mg PO BID albuterol sulfate 90 mcg/actuation Hfa Aerosol Inhaler 2 puff INHALATION QID PRN (Reason: Bronchospasm) Xarelto 20 mg Tablet 20 mg PO DAILY sucralfate 1 gram Tablet See Rx Instructions .ROUTE .COMPLEX Qty: 60 1RF Patient Comments: not taking Rx Instructions: Dissolve 1 tablet (1gm) in 15 ml water and drink at least 1 hour prior to meals and at bedtime as needed for sore throat and/or esophagitis. folic acid 1 mg PO DAILY Patient Comments: not taking hydrocodone-acetaminophen 10-300 mg Tablet 1 tablet PO Q4H PRN (Reason: Pain) megestrol 400 mg/10 mL (10 mL) Suspension 400 mg PO DAILY Breztri Aerosphere 160-9-4.8 mcg/actuation HFA aerosol inhaler 2 inh inhalation QAM AND QPM 30 Days Qty: 10.7 5RF Rx Instructions: rinse and spit, use with spacer albuterol sulfate 2.5 mg /3 mL (0.083 %) solution for nebulization 2.5 mg inhalation Q4-6H PRN (Reason: shortness of breath or wheezing) Qty: 360 2RF azithromycin 250 mg tablet See Rx Instructions PO .COMPLEX Qty: 6 0RF Rx Instructions: For 250 mg dose pack: take 500 mg today (day 1), then 250 mg for 4 days (days 2-5) PO nitroglycerin 0.4 mg tablet, sublingual See Rx Instructions .ROUTE .COMPLEX Rx Instructions: . lisinopril 5 mg Tablet 5 mg PO DAILY Patient Comments: states he does not always take Follow-up/Referrals: UNKNOWN,DOCTOR [Primary Care Provider] - Time of Disposition: 14:50
[2024-06-17 13:18] LABS: Hematocrit 31.5 % (40.0-54.0); Hemoglobin 11.5 g/dL (14.0-18.0); Immature Platelet Fraction Pct 7.2 % (1.0-7.0); Mean Corpuscular HGB Conc 36.5 g/dL (32-36); Mean Corpuscular Hemoglobin 34.7 pg (27.0-31.0); Mean Corpuscular Volume 95.2 fL (78.0-102.0); Mean Platelet Volume 10.1 fl (8.7-11.0); Platelet Count Result 61 K/mm3 (150-420); Red Blood Count 3.31 M/mm3 (4.70-6.10); White Blood Count 6.6 K/mm3 (4.8-10.8)
[2024-06-17 13:25] LABS: Band Neutrophils Percent 3 % (0-6); Neutrophils Percent Manual 88 % (46-73); Total Cells Counted 100
[2024-06-17 13:26] LABS: Lymphocytes Absolute Manual 0.26 K/mm3 (1.1-4.5); Lymphocytes Percent Manual 4 % (18-44); Monocytes Absolute Manual 0.33 K/mm3 (0.1-0.90); Monocytes Percent Manual 5 % (3-9); Platelet Estimate Decreased (Adequate)
[2024-06-17 13:28] LABS: INR 1.3; Partial Thromboplastin Time 26.4 Sec (23.9-30.70); Prothrombin Time 13.7 Seconds (9.50-12.1)
[2024-06-17 13:32] LABS: Lactic Acid Reflex 1.8 mmol/L (0.4-2.0)
[2024-06-17 13:36] LABS: Alanine Aminotransferase 205 U/L (16-63); Albumin Level 2.6 g/dL (3.4-5.0); Alkaline Phosphatase 286 U/L (46-116); Ammonia 32 umol/L (11-32); Anion Gap 3 mmol/L (4-12); Aspartate Amino Transferase 338 U/L (15-37); Bilirubin,Total 2.3 mg/dL (0.00-1.00); Blood Urea Nitrogen 5 mg/dL (7-18); Calcium 8.1 mg/dL (8.5-10.1); Carbon Dioxide 34 mmol/L (21-32); Chloride 93 mmol/L (98-108); Estimated CRCL calculation 93 ml/min; Estimated Glomerular Filt Rate > 60; Glucose 155 mg/dL (70-99); Magnesium 1.5 mg/dL (1.8-2.4); NT Pro B Type Natriuretic Pept 869 pg/mL (0-125); Osmolality Calculated 270 mOsm/kg (285-295); Potassium 3.5 mmol/L (3.5-5.1); Sodium 130 mmol/L (136-145); Total Protein 6.2 g/dL (6.4-8.2)
[2024-06-17 13:37] LABS: Troponin I 9.9 ng/L (0.00-60.4)
[2024-06-17 13:52] LABS: SARS-CoV-2 RNA PCR Negative (Negative)
[2024-06-17 13:53] LABS: Influenza A QL RT-PCR Negative (Negative); Influenza B QL RT-PCR Negative (Negative); RSV RNA, RT-PCR Negative (Negative)
[2024-06-17 14:34] LABS: Add Urine Microscopic? NO; Appearance Urine Clear (Clear); Bilirubin Urine Negative (Negative); Blood Urine Negative (Negative); Color Urine Light Yellow (Yellow); Glucose Urine UA Negative (Negative); Ketones Urine Negative (Negative); Leukocyte Esterase Ur Negative LEU/UL (Negative); Nitrate Urine Negative (Negative); Protein Urine Negative (Negative); Urobilinogen Urine 0.2 mg/dL (0.2-1.0)
[2024-06-17] MEDS: MAG HYDROX/ALUMINUM HYD/SIMETH 30 ML, PHENobarb/HYOSCY/ATROPINE/SCOP 32.4 MG, LIDOCAINE... PO (15:02)
[2024-06-17] MEDS: LORazepam (*CRX) 0.5 MG TABLET PO (15:02)
[2024-06-17 15:19] VITALS: BP 107/91; PULSE 109; RESP 20; TEMP 36.6; O2SAT 92
--- NOTE | 2024-06-17 15:23 | PC.NURSE ---
On 06/17/24, the student, [lauren lloyd ], provided care and completed [facility] documentation on this patient. I have reviewed the student's documentation and agree with the findings.
--- NOTE | 2024-06-18 12:53 | PC.NURSE ---
PRELIMINARY BLOOD CULTURE RESULTS X2: NO GROWTH TO DATE
== END 2024-06-17 15:22 | disposition home or self-care (01) ==
PROVIDERS: Emergency Provider Emergency Medicine
DX: F10.20 Alcohol dependence, uncomplicated (principal); K70.0 Alcoholic fatty liver; Y90.9 Presence of alcohol in blood, level not specified; D69.6 Thrombocytopenia, unspecified; R94.31 Abnormal electrocardiogram [ECG] [EKG]; R74.01 Elevation of levels of liver transaminase levels; R91.8 Other nonspecific abnormal finding of lung field; I10 Essential (primary) hypertension; I25.10 Atherosclerotic heart disease of native coronary artery without angina pectoris; F17.210 Nicotine dependence, cigarettes, uncomplicated; Z85.118 Personal history of other malignant neoplasm of bronchus and lung; Z20.822 Contact with and (suspected) exposure to COVID-19; Z86.711 Personal history of pulmonary embolism; Z86.718 Personal history of other venous thrombosis and embolism
CPT/HCPCS: 36415; 71275; 80053; 81003; 82140; 83605; 83735; 83880; 84484; 85025; 85055; 85380; 85610; 85730; 87040; 87637; 93005; 99284; A9270; Q9967

== ENCOUNTER 2024-06-30 01:15 | Emergency (ER) | payer MEDICARE, SELFPAY ==
[2024-06-30] VITALS (45 sets, daily range): BP systolic 79–140; BP diastolic 57–100; PULSE 78–120; RESP 12–33; TEMP 36.7–36.8; O2SAT 56–100
--- NOTE | ~2024-06-30 | XR_ITS ---
Portable chest x-ray Comparison: 06/16/2024 Clinical History: Tube placement Findings: Endotracheal tube and right-sided Mediport in place. Probable left perihilar airspace dise ase. Right lung clear. Cardiomediastinal silhouette is stable. Bones and soft tissues are unremarkab le. Impression: Support tubes as above. Left perihilar disease. Correlate for pneumonia or possibly underlying mass. Reviewed, dictated and finalized at [facility]. Impression: Support tubes as above. Left perihilar disease. Correlate for pneumonia or possibly underlying mass.
--- NOTE | ~2024-06-30 | CT_ITS ---
Clinical Indication: Pulmonary embolus, dissection CT Scan of the Chest, Abdomen, and Pelvis with Contrast: Technique: Contiguous sections were acquired throughout the chest, abdomen, and pelvis after intraven ous administration of 100 cc of Omnipaque 350. Dose reduction technique was used on this scan by elizabeth montenegro automated exposure control and iterative reconstruction technique. The dose-length product (DL P) was 800.92 mGy-cm. Comparison: 06/17/2024 Findings: Endotracheal tube is present, with tip in the right mainstem bronchus. There is no evidence of any significant mediastinal, hilar or axillary lymphadenopathy. No aortic ane urysm or dissection. No pulmonary embolus. No pericardial effusion. No right pleural effusion. Stable circumscribed pulmonary nodule in the right upper lobe peripherally measuring 1.8 cm in diameter (axial image 58). Small left pleural effusion present. There is dense consolidation with extensive involvement of left lower lobe, significantly worsened from prior exam. There is probable partial consolidation in the le ft upper lobe in the perihilar region, which is mildly worsened from prior exam. There is chronic sca rring in the left lung apex extending towards the hilum. There is partial medial left lower lobe atel ectasis. The liver, spleen, pancreas, and right kidney are within normal limits. Small calcified gallstones ar e present. There are bilateral adrenal nodules, indeterminate by Hounsfield measurements on this exam , with left-sided nodule measuring 1.9 cm, and right-sided nodule measuring 1.5 cm. Probable focal ar eas of cortical scarring in the left kidney. There are atherosclerotic calcifications of the aorta an iliac vessels. No aortic aneurysm or dissection. No lymphadenopathy. No bowel obstruction or bowel wall thickening. There is no evidence to suggest acute appendicitis. Urinary bladder is unremarkable. No pelvic mass seen. No ascites. Impression: ET tube tip in the right mainstem bronchus. Retraction required. Extensive dense consolidation in the left lower lobe with increased consolidation and thickening in t he left upper lobe in the perihilar region. Findings are suspicious for interval development of exten sive pneumonia. Partial atelectasis of the left lower lobe medially. Small left pleural effusion. Probable underlying chronic post radiation or posttreatment changes in the left lung apex extending t o the left hilum. Stable 1.8 cm circumscribed right upper lobe pulmonary nodule, indeterminate. Neoplastic disease not excluded. No pulmonary embolus or aortic dissection. Bilateral adrenal nodules, essentially stable dating back at least to 03/29/2022. Stability over this time interval suggests benign lesions. Cholelithiasis. Reviewed, dictated and finalized at [facility]. Impression: ET tube tip in the right mainstem bronchus. Retraction required. Extensive dense consolidation in the left lower lobe with increased consolidati on and thickening in the left upper lobe in the perihilar region. Findings are suspicious for interval development of extensive pneumonia. Partial atelectasis of the left lower lobe medially. Small left pleural effusion. Probable underlying chronic post radiation or posttreatment changes in the left lung apex extending to the left hilum. Stable 1.8 cm circumscribed right upper lobe pulmonary nodule, indeterminate. N eoplastic disease not excluded. No pulmonary embolus or aortic dissection. Bilateral adrenal nodules, essentially stable dating back at least to 2. Stability over this time interval suggests benign lesions. Cholelithiasis.
--- NOTE | ~2024-06-30 | CT_ITS ---
Non-contrast Head CT History: Altered mental status COMPARISON: 06/16/2024 Technique: Axial non-contrast imaging of the brain was performed. Dose reduction technique was used on this scan by utilizing automated exposure control and iterative reconstruction technique. The dose -length product (DLP) was 832.33 mGy-cm. Findings: There is no evidence of intracranial hemorrhage, mass lesion, or acute infarct. Brain par enchyma appears normal. The ventricles and subarachnoid spaces are normal in size. The calvarium ap pears normal. Left maxillary sinus disease present. The remaining visualized paranasal sinuses and ma stoid air cells are clear. Impression: No intracranial abnormality seen. Left maxillary sinus disease. Reviewed, dictated and finalized at [facility]. Impression: No intracranial abnormality seen. Left maxillary sinus disease.
--- NOTE | ~2024-06-30 | XR_ITS ---
Portable chest x-ray Comparison: 06/30/2024 Clinical History: Tube placement Findings: Endotracheal tube and NG tube are in satisfactory positions. Right-sided Mediport in place . Probable small left pleural effusion with extensive left basilar and midlung consolidation. There i s irregular density in the left suprahilar region. Right lung essentially clear. Cardiomediastinal s ilhouette is stable. Bones and soft tissues are unremarkable. Impression: Support tubes, as above. Small left pleural effusion with extensive left lung consolidation, likely atelectasis and/or pneumon ia. Correlate clinically. Reviewed, dictated and finalized at location . Impression: Support tubes, as above. Small left pleural effusion with extensive left lung consolidation, likely atel ectasis and/or pneumonia. Correlate clinically.
[2024-06-30] MEDS: SODIUM CHLORIDE 0.9% IV 1,000 ML 999 ML IV CONT ×3 (01:24→02:50)
--- OUTSIDE RECORDS SUMMARY | 2024-06-30 01:31 | XMS_ITS | CONTINUITY OF CARE DOCUMENT ---
Author Name kathy chavez Address Unknown Organization [facility] Address [id number] [place] [address] [address] [place] [address] Phone [phone] Care Team Providers Care Accessioner Name Role Phone Marck BROCK, Susan Unavailable [phone] KEISHA VELÁSQUEZ MD Unavailable PROBLEMS Condition Status Date Provider Notes CAD - S/P LAD STENTS 2008 active Susan rabago MD HYPERCHOLESTEROLEMIA active Susan Acharya MD COPD active Susan Acharya MD PE/DVT - ANTICOAGULATED ON XARELTO active M jasen Acharya MD TOBACCO ABUSE - 1 PPD active Susan Acharya MD CHEST PAIN active Susan Acharya MD ENCOUNTERS Date Type Provider Location Encounter Diag nosis - In-person encounter Office Visit Susan Acharya MD [facility] CAD - S/P LAD STENTS 2008HYPERCHOLESTEROLEM IACOPDPE/DVT - ANTICOAGULATED ON XARELTOTOBACCO ABUSE - 1 PPDCHEST PAIN VITAL SIGNS Date Observation Value Provider blood pressure, diastolic, left arm 80 mm [Hg] Susan Acharya MD blood pressure, systolic, left arm 132 mm [Hg] Susan Acharya MD blood pressure, diastolic, right arm 80 m m[Hg] Susan Acharya MD blood pressure, systolic, right arm 140 m m[Hg] Susan Acharya MD oxygen saturation, oximetry 93 % Susan Acharya MD pulse rate 94 /min Susan Acharya MD weight E&M 175 [lb_av] Susan Acharya MD height E&M 69 [in_i] Susan Acharya MD RESULTS Date Observation Value Provider Reference Range Interpretation Location international normalized [facility] ([facility] count 180 10*3/mm3 [facility] hematocrit, blood 45.3 % [facility] triglyceride, serum, fasting 48 mg/dL [facility] HDL cholesterol, serum 66 mg/dL [facility] cholesterol/HDL ratio, serum 2.5 [facility] lipoprotein, beta, serum, point, quantitative, calculated 87 mg/dL [facility] cholesterol, serum 163 mg/dL [facility] alanine aminotransferase (SGPT), serum 53 1/L [facility] aspartate aminotransferase (SGOT), serum 49 1/L [facility] creatinine, serum 0.68 mg/dL [facility] potassium, serum 4.1 mmol/L [facility] sodium, serum 141 mmol/L [facility] HISTORY OF MEDICATION USE Medication Status Instructions Dates Provider Indications Com ments B-12 TABLET active Susan Acharya MD [facility] VITAMIN B-1 TABLET active Susan Acharya MD RANEXA 500 MG ORAL TABLET EXTENDED RELEASE 12 HOUR active one tablet twice daily Susan Acharya MD NITROSTAT 0.4 MG SUBLINGUAL TABLET SUBLINGUAL active s/l one tab prn for chest pain Susan Acharya MD SIMVASTATIN 20 MG ORAL TABLET active Susan Acharya MD SYMBICORT 160-4.5 MCG/ACT INHALATION AEROSOL active Susan Acharya MD XARELTO 20 MG ORAL TABLET active po once daily Susan Acharya MD SOCIAL HISTORY Date Observation Value Provider number of children 1 child Susan Acharya MD cigarette use 1 Susan Acharya MD smoking status current every day smoker M jasen Acharya MD smoking/tobacco cess ation, patient education and counseling yes Susan Acharya MD alcohol use, average drinks per day twice a week Susan Acharya MD social history reviewed E&M reviewed Susan Acharya MD social history E&M E thnicity: J ob Status: Unemployed M arital Status: C hildren: 1 child L rozina alone Susan Acharya MD MENTAL STATUS Date Observation Value Provider assessment of judgme nt and insight E&M Alert and oriented to time, place and person. Mood and affect are normal. Susan Acharya MD INSURANCE PROVIDERS Payer name Policy type / Coverage type [employer] red [employer] Medicaid 9 [id number] TREATMENT PLAN Date Name STR - Adenosine Complete Echo
--- OUTSIDE RECORDS SUMMARY | 2024-06-30 01:31 | XMS_ITS | Referral Summary ---
Author Organization [facility] [place] [address] Address [address] [place] [address] Care Team Providers Care High Pressure Firer Name Role Phone Arthur Clinton MD Primary Care Provide r Morgan Vann MD Unavailable [phone] Mookie Doe MD Unavailable [phone] Say Tubbs NP Unavailable Encounters Date Type Department Care Team Description 06/18/2024 11:45 AM ACCOUNTING MANAGER Office Visit Family Care at [address] [address] Arthur Clinton MD Malignant neoplasm of lower lobe of left lung (HCC) (Primary Dx); Centrilobular emphysema (HCC); Coronary artery disease involving [place] coronary artery of [place] heart without angina pectoris; Essential hypertension; Gastroesophageal reflux disease, unspecified whether esophagitis present; Chronic prescription opiate use; STELLA (obstructive sleep apnea); COPD with acute exacerbation (HCC) from Last 3 Months Allergies No known active allergies Medications aspirin 81 mg tablet take 1 tablet (81MG) by oral route every day 0 07/01/19 11 Active albuterol (PROVENTIL,VENTOLI N) 0.4 mg/mL syrupIndications:B ronchospastic Pulmonary Disease Take 5 mL (2 mg total) by mouth 3 (three) times a day Active albuterol sulfate 90 mcg/actuation aerosol powdr breath activated Inhale 180 mcg every 4 (four) hours. Active magnesium oxide 200 mg magnesium tablet Take 1 tablet (200 mg of elemental magnesium total) by mouth daily Active ergocalciferol (Vitamin D2) 50,000 unit capsule Take 1 capsule (50,000 Units total) by mouth once a week 12 capsule 3 01/04/20 20 Active buPROPion SR (ZYBAN) 150 mg 12 hr tablet Take 1 tablet (150 mg total) by mouth 2 (two) times a day 60 tablet 5 11/20/19 21 Active folic acid (FOLVITE) 1 mg tablet Take 1 tablet (1 mg total) by mouth daily Active ascorbic acid, vitamin C, 100 mg tablet,chewable Take 1 tablet/chew tab (100 mg total) by mouth Active cyanocobalamin (Vitamin B-12) 100 mcg tablet Take 1 tablet (100 mcg total) by mouth daily Active triamcinolone (KENALOG) 0.1 % cream Apply to affected area 1-2 times daily as needed. Avoid face and groin. 454 g 5 12/14/19 23 Active nicotine (NICODERM CQ) [address] 1 patch on the skin daily 28 patch 1 03/24/20 23 Active atorvastatin (LIPITOR) 40 mg tablet TAKE 1 TABLET BY MOUTH EVERY DAY 90 tablet 3 12/26/[address] (PROTONIX) 40 mg EC tablet TAKE 1 TABLET BY MOUTH EVERY DAY 90 tablet 3 12/26/19 24 Active Xarelto 20 mg tablet TAKE 1 TABLET BY MOUTH EVERY DAY 90 tablet 3 03/27/20 24 Active ondansetron ODT (ZOFRAN-ODT) 4 mg disintegrating tablet Take 1 tablet (4 mg total) by mouth every 8 (eight) hours as needed for nausea or vomiting 20 tablet 11 03/26/20 24 Active HYDROcodone-acetam inophen (NORCO) 10-325 mg per tabletIndications: Pain Take 1 tablet by mouth every 8 (eight) hours as needed for pain 90 tablet 06/19/19 25 Active budesonide-glycopy r-formoterol (BREZTRI) 160-9-4.8 mcg/actuation inhaler Inhale 2 puffs 2 (two) times a day Active lisinopril (PRINIVIL,ZESTRIL) 5 mg tablet take 1 tablet (5MG) by oral route every day 30 5 07/01/19 11 025 Discontinu ed(Therapy completed) carvediloL (COREG) 25 mg tablet TAKE 1 TABLET BY MOUTH TWICE A DAY 180 tablet 3 04/15/20 21 025 Discontinu ed(Therapy completed) fluticasone-umecli din-vilanter (TRELEGY ELLIPTA) 100-62.5-25 mcg inhaler Inhale 1 puff daily 60 each 5 01/30/20 24 025 Discontinu ed(Therapy completed) HYDROcodone-acetam inophen (NORCO) 10-325 mg per tabletIndications: Pain Take 1 tablet by mouth every 8 (eight) hours as needed for pain 90 tablet 05/28/19 25 025 Discontinu ed(Reorder ) predniSONE (DELTASONE) 20 mg tablet Take 2 tablets (40 mg) by mouth daily for 5 days 10 tablet 05/28/19 25 025 Active Problems Problem Noted Date Diagnosed Date Chronic prescription opiate use 06/18/2024 Assessment & Plan (06/18/2024 11:02 PM ACCOUNTING MANAGER): Chronic cancer pain Patient continues to receive benefit from medication Medication being used in a safe way to improve function Malignant neoplasm of lower lobe of left lung Overview (05/23/2024): S/p radiation completed 08/18/21 Completed carboplatin and Taxol chemotherapy 09/16/21 Maintenance chemotherapy with durvalumab completed October 2022 Oncology monitoring with serial surveillance imaging Assessment & Plan (06/18/2024 11:02 PM ACCOUNTING MANAGER): S/p radiation completed 08/18/21 Completed carboplatin and Taxol chemotherapy 09/16/21 Maintenance chemotherapy with durvalumab completed October 2022 Oncology monitoring with serial surveillance imaging Recommend close follow-up with Oncology to investigate possible new nodules from ED scan DJD (degenerative joint disease) of cervical spi ne 07/05/2019 Hiatal hernia 09/26/2018 Diarrhea 09/13/2018 History of AK (myocardial infarction) 09/13/2018 Postural hypotension 09/13/2018 History of coronary artery stent placement 08/10 Essential hypertension 05/14/2018 Assessment & Plan (06/18/2024 11:01 PM ACCOUNTING MANAGER): BP Readings from Last 3 Encounters: 06/18/24 106/72 12/14/23 125/83 09/27/23 134/92 Controlled/stable, continue current management Patient off medication - he was losing weight and medication was making him dizzy so he quit lisinopril and carvedilol BP stable - follow-up with Cardiology STELLA (obstructive sleep apnea) 05/14/2018 Assessment & Plan (06/18/2024 11:03 PM ACCOUNTING MANAGER): Previously intolerant of CPAP Follow-up with Pulmonary Anxiety 05/14/2018 CAD (coronary artery disease) 05/09/2018 Overview (05/09/2018): PCI to LAD in 2010 Repeat Cath in 01/2016 for atypical chest pain - no restenosis Assessment & Plan (06/18/2024 11:00 PM ACCOUNTING MANAGER): Continue aspirin, statin therapy for secondary prevention Follow-up with Cardiology GERD (gastroesophageal reflux disease) 9 Assessment & Plan (06/18/2024 11:01 PM ACCOUNTING MANAGER): Continue PPI - Protonix If trouble/pain swallowing persist, may need swallow eval/GI consultation Centrilobular emphysema 06/24/2016 Assessment & Plan (06/18/2024 11:03 PM ACCOUNTING MANAGER): Recommend close follow-up with Pulmonary Continue Breztri Albuterol PRN Chronic cough 06/24/2016 SOB (shortness of breath) 06/24/2016 Tobacco use disorder 06/24/2016 History of pulmonary embolism 06/17/2016 Overview (09/10/2016): History of pulmonary embolism Chronic obstructive pulmonary disease 06/17/2016 Overview (09/10/2016): Chronic obstructive pulmonary disease, unspecified COPD type Internal hemorrhoid 04/28/2016 Reflux esophagitis 04/28/2016 Lower abdominal pain 03/30/2016 Nausea & vomiting 03/30/2016 Resolved Problems Problem Noted Date Diagnosed Date Resolved Date Chronic deep vein thrombosis (DVT) of proximal vein of left lower extremity 06/24/2016 Pulmonary embolism without a cute cor pulmonale 06/24/2016 04/02/2021 Immunizations Immunization Administration Dates Next Due Influenza, Quadrivalent, Spl it, Preservative Free, Intramuscular 04/02/2020,01/30/2019 Influenza, Unspecified 11/16/2022(Deferr ed: Patient Refused),01/16/2022,01/16/2021, 018,01/16/2017 Pfizer SARS-CoV-2 Monovalent Vaccination (12+ Yrs) PURPLE 04/29/2021,11/15/2020 Pneumococcal Conjugate Pcv20 12/18/2022 Pneumococcal Polysaccharide PPV23 04/29/2021 Social History Tobacco Use Types Packs/Day Years Used Date Smoking Tobacco: Every Day Cigarettes Smokeless Tobacco: Never Tobacco Cessation:Ready to Q uit: Yes; Counseling Given: Not Answered Alcohol Use Standard Drinks/Week Comments Yes 0 (1 standard drink = 0.6 oz pur e alcohol) AUDIT-C Answer Date Recorded Q1: How often do you have a drink containing alcohol? Never 10/06/2021 Q2: How many drinks containi ng alcohol do you have on a typical day when you are drinking? Patient does not drink Q3: How often do you have si x or more drinks on one occasion? Never 10/06/2021 PHQ-2 Answer Date Recorded PHQ-2 Total Score (If total score is 3 or more points, staff should administer the PHQ-9) 0 06/18/2024 Sex and Gender Information Value Date Recorded Sex Assigned at Not on file Legal Sex Male 7:13 PM ACCOUNTING MANAGER Gender Identity Not on file Sexual Orientation Not on file Last Filed Vital Signs Vital Sign Reading Time Taken Comments Blood Pressure 106/72 06/18/2024 11:38 AM ACCOUNTING MANAGER Pulse 114 06/18/2024 11:38 AM ACCOUNTING MANAGER Temperature 36.1 C (97 F) 06/25/2021 11:21 AM ACCOUNTING MANAGER Respiratory Rate 12 10/06/2021 3:48 PM CDT Oxygen Saturation 95% 09/27/2023 1:40 PM CDT Inhaled Oxygen Concentration - - Weight 70.7 kg (155 lb 14.4 oz) 12/14/2023 3:18 PM CDT Height 177.8 cm (5' 10 ) 06/18/2024 11: 38 AM ACCOUNTING MANAGER Body Mass Index 22.37 12/14/2023 3:18 PM CDT Plan of Treatment Not on file Procedures Procedure Name Priority Date/Time Associated Diagnosis Comments PSA SCREEN Routine 12/14/2023 Annual physical exam HEPATITIS C ANTIBODY Routine 05/08/2018 3:18 PM ACCOUNTING MANAGER Other problems related to lifestyle HM COLONOSCOPY Routine 04/21/2016 from Last 3 Months or Most Recently Relevant to Health Maintenance Results * PSA screen (12/14/2023) Blood Arthur Clinton MD LAB BLOOD ORDERABLES Final Result Performing Organization Address City/[facility]/ZIP Co de Phone Number EXTERNAL LAB * Hepatitis C antibody (05/08/2018 3:18 PM ACCOUNTING MANAGER) Hep C Ab Negative Negative [facility] Blood specimen (specimen) 05/08/2018 3:18 PM ACCOUNTING MANAGER 05/08/2018 6:40 PM ACCOUNTING MANAGER Narrative [facility] - 05/08/2018 8:51 PM ACCOUNTING MANAGER Arthur Clinton MD LAB MICROBIOLOGY - GE NERAL ORDERABLES Final Result [facility] [address] [place] [address] * COLONOSCOPY (04/21/2016) Colonoscopy Normal Michael Blair MD HEALTH MAINTENANCE Final Result from Last 3 Months or Most Recently Relevant to Health Maintenance Insurance MEDICARE SOLUTIONS MDCR HMO REF MEDICARE SOLUTIONS Advance Directives For more information, please contact: [phone] * Full Code (Latest Code Status on File) Date Activated Date Inactivated Comments 06/01/2021 9:31 AM 2021 4:35 AM Care Teams High Pressure Firer Relationship Specialty [place] [address] [facility] [address] [place] [address] PCP - General Family Medicine 04/07/18 Morgan Vann MD [address] [facility] [address] [place] [address] Consulting Physician Cardiology 05/09/18 Mookie Doe MD [address] [facility] [address] [place] [address] Consulting Physician Hematology and Oncology 07/31/21 Say Tubbs NP [address] [facility] [address] [facility] [address] [place] [address] Nurse Practitioner Pulmonary Disease 03/08/24
--- OUTSIDE RECORDS SUMMARY | 2024-06-30 01:31 | XMS_ITS | Clinical Summary ---
Author Organization [facility] [place] [address] Address [address] [place] [address] Care Team Providers Care Electric Tripper Machine Operator Name Role Phone Arthur Clinton MD Primary Care Provide r Morgan Vann MD Unavailable [phone] Mookie Doe MD Unavailable [phone] Say Tubbs NP Unavailable Allergies No known active allergies Medications aspirin 81 mg tablet take 1 tablet (81MG) by oral route every day 0 07/01/19 11 Active albuterol (PROVENTIL,VENTCIRO N) 0.4 mg/mL syrupIndications:B ronchospastic Pulmonary Disease [...] 06/18/2024 Assessment & Plan (06/18/2024 11:02 PM CHIEF TECHNOLOGIST): Chronic cancer pain Patient continues to receive benefit from medication Medication being used in a safe way to improve function Malignant neoplasm of lower lobe of left lung Overview (05/23/2024): S/p radiation completed 08/18/21 Completed carboplatin and Taxol chemotherapy 09/16/21 Maintenance chemotherapy with durvalumab completed October 2022 Oncology monitoring with serial surveillance imaging Assessment & Plan (06/18/2024 11:02 PM CHIEF TECHNOLOGIST): S/p radiation completed 08/18/21 Completed carboplatin and Taxol chemotherapy 09/16/21 Maintenance chemotherapy with durvalumab completed October 2022 Oncology monitoring with serial surveillance imaging Recommend close follow-up with Oncology to investigate possible new nodules from ED scan DJD (degenerative joint disease) of cervical spi ne 07/05/2019 Hiatal hernia 09/26/2018 Diarrhea 09/13/2018 History of MA (myocardial infarction) 09/13/2018 Postural hypotension 09/13/2018 History of coronary artery stent placement 08/10 Essential hypertension 05/14/2018 Assessment & Plan (06/18/2024 11:01 PM CHIEF TECHNOLOGIST): BP Readings from Last 3 Encounters: 06/18/24 106/72 12/14/23 125/83 09/27/23 134/92 Controlled/stable, continue current management Patient off medication - he was losing weight and medication was making him dizzy so he quit lisinopril and carvedilol BP stable - follow-up with Cardiology STELLA (obstructive sleep apnea) 05/14/2018 Assessment & Plan (06/18/2024 11:03 PM CHIEF TECHNOLOGIST): Previously intolerant of CPAP Follow-up with Pulmonary Anxiety 05/14/2018 CAD (coronary artery disease) 05/09/2018 Overview (05/09/2018): PCI to LAD in 2010 Repeat Cath in 01/2016 for atypical chest pain - no restenosis Assessment & Plan (06/18/2024 11:00 PM CHIEF TECHNOLOGIST): Continue aspirin, statin therapy for secondary prevention Follow-up with Cardiology GERD (gastroesophageal reflux disease) 9 Assessment & Plan (06/18/2024 11:01 PM CHIEF TECHNOLOGIST): Continue PPI - Protonix If trouble/pain swallowing persist, may need swallow eval/GI consultation Centrilobular emphysema 06/24/2016 Assessment & Plan (06/18/2024 11:03 PM CHIEF TECHNOLOGIST): Recommend close follow-up with Pulmonary Continue Breztri [...] without a cute cor pulmonale 06/24/2016 04/02/2021 Encounters Date Type Department Care Team Description 06/18/2024 11:45 AM CHIEF TECHNOLOGIST Office Visit Family Care at [address] [address] Arthur Clinton MD Malignant neoplasm of lower lobe of left lung (HCC) (Primary Dx); Centrilobular emphysema (HCC); Coronary artery disease involving [place] coronary artery of [place] heart without angina pectoris; Essential hypertension; Gastroesophageal reflux disease, unspecified whether esophagitis present; Chronic prescription opiate use; STELLA (obstructive sleep apnea); COPD with acute exacerbation (HCC) from Last 3 Months Immunizations Immunization Administration Dates Next Due Influenza, Quadrivalent, Spl it, Preservative Free, Intramuscular 04/02/2020,01/30/2019 Influenza, Unspecified 11/16/2022(Deferr ed: Patient Refused),01/16/2022,01/16/2021, 018,01/16/2017 Pfizer SARS-CoV-2 Monovalent Vaccination (12+ Yrs) PURPLE 04/29/2021,11/15/2020 Pneumococcal Conjugate Pcv20 12/18/2022 Pneumococcal Polysaccharide PPV23 04/29/2021 Medical History Medical History Date Comments Hx Other Medical 2010 Pulmonary Embol us Hx Other Medical 2010 DVT: RLE Hx Other Medical COPD: Chronic B ronchitis Hypertension Hypertension Cervical stenosis of spine Abnormal liver enzymes Hepatitis work up negative Alcohol abuse Alcoholic hepatitis (HCC) Anemia Esophagitis 04/21/2016 LA Class A - on EGD 04/21/16 Hiatal hernia 09/21/2018 EGD 09/21/18 COPD (chronic obstructive pu lmonary disease) (HCC) MA (mitral incompetence) H/O blood clots Lung cancer (HCC) current Hiatal hernia 07/28/2022 on EGD Esophageal ring 07/28/2022 on EGD Family History Medical History Relation Name Comments Other Father 2 Complications o f DM & renal dis, PVD; Cause of : Complications of DM & renal dis, PVD Alzheimer's disease Mother 2 Alzheime r's Disease; Relation Name Status Comments Father 1 Father 2 Mother 1 Alive Mother 2 Social History Tobacco Use Types Packs/Day Years [...] on file Legal Sex Male 7:13 PM CHIEF TECHNOLOGIST Gender Identity Not on file Sexual Orientation Not on file Obstetrics History Last Filed Vital Signs Vital Sign Reading Time Taken Comments Blood Pressure 106/72 06/18/2024 11:38 AM CHIEF TECHNOLOGIST Pulse 114 06/18/2024 11:38 AM CHIEF TECHNOLOGIST Temperature 36.1 C (97 F) 06/25/2021 11:21 AM CHIEF TECHNOLOGIST Respiratory Rate 12 10/06/2021 3:48 PM CDT Oxygen Saturation 95% 09/27/2023 1:40 PM CDT Inhaled Oxygen Concentration - - Weight 70.7 kg (155 lb 14.4 oz) 12/14/2023 3:18 PM CDT Height 177.8 cm (5' 10 ) 06/18/2024 11: 38 AM CHIEF TECHNOLOGIST Body Mass Index 22.37 12/14/2023 3:18 PM CDT Plan of Treatment Health Maintenance Due Date Last Done Comments DTaP/Tdap/Td Vaccine (1 - Tdap) 1975 Hepatitis B Screening 1982 Covid-19 Vaccine (4 - season) 2023 04/29/2021, 11/15/2020, 10/25/2020 Zoster Vaccine (2 of 2) 02/11/2024 12/17/2023 Influenza Vaccine (#1) 2024 2, 01/16/2021, 04/02/2020, Additional history exists Postponed from 12/18/2023 (Patient declined, but will receive in the future) Regular Well Visit/Exam 18-64 12/13/2024 12/14/2023, 12/13/2022, 04/02/2021, Additional history exists Depression Screening 06/18/2025 06/18/2024, 12/14/2023, 12/13/2022, Additional history exists Prostate Cancer Screening-PSA 01/17/2026 01/18/2024, 12/14/2023, 01/22/2023 Colon Cancer Screening-Colonoscopy 04/21/2026 04/21/2016, 04/21/2016 Colon Cancer Screening-CT Colonography Discontinued 04/21/2016 Colon Cancer Screening-DNA Stool Discontinued 04/21/2016 Colon Cancer Screening-FIT Discontinued 04/21/2016 Colon Cancer Screening-Sigmoidoscopy Discontinued 04/21/2016 Hepatitis C Screening Completed 05/08/2018 Pneumococcal vaccine <65 Completed 12/18/2022, 04/18 Procedures Procedure Name Priority Date/Time Associated Diagnosis Comments PSA SCREEN Routine 12/14/2023 Annual physical exam HEPATITIS C ANTIBODY Routine 05/08/2018 3:18 PM CHIEF TECHNOLOGIST Other problems related to lifestyle HM COLONOSCOPY Routine 04/21/2016 from Last 3 Months or Most Recently Relevant to Health Maintenance Results * PSA screen (12/14/2023) Blood Arthur Clinton MD LAB BLOOD ORDERABLES Final Result EXTERNAL LAB * Hepatitis C antibody (05/08/2018 3:18 PM CHIEF TECHNOLOGIST) Pathologist [facility] Hep C Ab Negative Negative [facility] Blood specimen (specimen) 05/08/2018 3:18 PM CHIEF TECHNOLOGIST 05/08/2018 6:40 PM CHIEF TECHNOLOGIST Narrative [facility] - 05/08/2018 8:51 PM CHIEF TECHNOLOGIST Arthur Clinton MD LAB MICROBIOLOGY - GE NERAL ORDERABLES Final Result [facility] [address] Department [place] [address] * COLONOSCOPY (04/21/2016) Colonoscopy Normal Michael Blair MD HEALTH MAINTENANCE Final Result from Last 3 Months or Most Recently Relevant to Health Maintenance Insurance MEDICARE SOLUTIONS R HMO REF MEDICARE SOLUTIONS Advance Directives For more information, please contact: [phone] * Full Code (Latest Code Status on File) Date Activated Date Inactivated Comments 06/01/2021 9:31 AM 2021 4:35 AM Care Teams Electric Tripper Machine Operator Relationship Specialty Start [place] [address] [facility] [address] [place] [address] PCP - General Family Medicine 04/07/18 Morgan Vann MD [address] [facility] [address] [place] [address] Consulting Physician Cardiology 05/09/18 Mookie Doe MD [address] [facility] [address] [place] [address] Consulting Physician Hematology and Oncology 07/31/21 Say Tubbs NP [address] [facility] [address] [facility] [address] [place], [place] [id number] Nurse Practitioner Pulmonary Disease 03/08/24
--- OUTSIDE RECORDS SUMMARY | 2024-06-30 01:31 | XMS_ITS | Continuity of Care Document ---
Author Organization [facility] Address [address] [place] [address] Phone Care Team Providers Care Still Operator Whiskey Name Role Phone García Mcguire MD Unavailable Unavailable Advance Directives Directive Yes / No Effective Date File Name No Information Encounters Encounter Description Practice Location Reason(s) For Visit Diagnoses Date Provider Providers Copied on Encounter [facility], [address], [place], [place], [id number], [place] tel:[phone] [facility] No Information [address] Maynor Mariano. [address] [facility] [place], [id number], [place]. tel:[phone] Family History Family Member Type Diagnosis Age At Onset No Information Payers Payer name Insurance type Covered alliance party ID [place] kait(s) [facility] CI [id number] Social History Type Description Quantity Date Captured Comments Sex Male Smoking Status No Information Chief Complaint And Reason For Visit No Information Reason For Referral Reason For Referral No Information History Of Present Illness Encounter Date Complaint History Of Prese nt Illness No Information Functional Status Date Functional Assessmen t No Information Instructions Date Instruction Additional Infor mation No Information Assessments Type Assessment Date No Information Patient Care Teams Name Effective Dates (start - stop) Status Members No Information
--- OUTSIDE RECORDS SUMMARY | 2024-06-30 01:31 | XMS_ITS | Clinical Summary ---
Author Organization [facility] Address [address] [place] [address] Care Team Providers Care Rehabilitation Tech Name Role Phone Arthur Clinton MD Primary Care Provider + Allergies No known active allergies Medications dicyclomine 10 MG capsule Take 10 mg by mouth 4 (four) times daily before meals and nightly. Active XARELTO 20 MG Tab tablet Take 1 tablet by mouth daily. 09/09/2018 Active pantoprazole EC 40 MG tablet Take 40 mg by mouth daily. 1 07/05/2018 Active Magnesium Oxide 200 MG Tab Take 200 mg by mouth daily. Active lisinopril 5 MG tablet Take 5 mg by mouth daily. 06/30/2010 Active carvedilol 25 MG tablet Take 25 mg by mouth 2 (two) times daily. 3 09/07/2018 Active buPROPion SR 150 MG 12 hr tablet Take 150 mg by mouth 2 (two) times daily. 5 08/29/2018 Active SYMBICORT 160-4.5 MCG/ACT inhaler Inhale 2 puffs into the lungs. Two times every day in the morning and evening. 07/03/2018 Active atorvastatin 40 MG tablet Take 40 mg by mouth daily. 3 08/23/2018 Active aspirin 81 MG tablet Take 81 mg by mouth daily. 06/30/2010 Active VENTOLIN HFA 108 (90 Base) MCG/ACT inhaler Take 180 mcg by mouth every 4 (four) hours as needed. 12/29/2017 Active vitamin D2, ergocalciferol, 94964 UNITS capsule Take 1 capsule by mouth monthly. 5 08/07/2018 Active albuterol 2 MG/5ML syrup Take 2 mg by mouth 3 (three) times daily. Active nitroglycerin 0.[address] 1 tablet under the tongue every 5 (five) minutes as needed. 2 03/24/2018 Active escitalopram 10 MG tablet Take 10 mg by mouth every morning. 5 08/24/2018 Active Active Problems Problem Noted Date Diagnosed Date Hiatal hernia 09/26/2018 Diarrhea 09/13/2018 Chronic cough 09/13/2018 Postural hypotension 09/13/2018 Coronary artery disease invo lving [place] coronary artery of [place] heart without angina pectoris 09/13/[address] (myocardial infarction) 09/13/2018 History of coronary artery stent placement 08/10 Anxiety 05/14/2018 STELLA (obstructive sleep apnea) 05/14/2018 Atherosclerosis of coronary artery 05/09/2018 Overview (09/14/2018): Overview: PCI to LAD in 2010 Repeat Cath in 01/2016 for atypical chest pain - no restenosis Centrilobular emphysema ([facility]) 2016 Chronic deep vein thrombosis (DVT) of proximal vein of left lower extremity ([facility]) 06/24/2016 Essential (primary) hypertension 06/24/2016 Pulmonary embolism without a cute cor pulmonale ([facility]) 06/24/2016 SOB (shortness of breath) 06/24/2016 Tobacco use disorder 06/24/2016 Chronic obstructive pulmonary disease ([facility]) 06/17/2016 Overview (09/14/2018): Overview: Chronic obstructive pulmonary disease, unspecified COPD type History of pulmonary embolism 06/17/2016 Overview (09/14/2018): Overview: History of pulmonary embolism Internal hemorrhoid 04/28/2016 Reflux esophagitis 04/28/2016 Lower abdominal pain 03/30/2016 GERD (gastroesophageal reflux disease) 6 Nausea & vomiting 03/30/2016 Resolved Problems Problem Noted Date Diagnosed Date Resolved Date Postoperative examination 04/28/2016 Bright red blood per rectum 03/30/2016 09/13/2018 Encounter for preventive health examination 03/30/2016 09/13/2018 Family History Medical History Relation Comments Cancer Brother acute throat can cer as of 09/14/18 upcoming procedure Lung Cancer Brother discussing parti al removal of lobe 09/14/18 Diabetes Father Kidney Disease Father Dementia Mother Relation Status Comments Brother Alive Father Mother Social History Tobacco Use Types Packs/Day Years Used Date Smoking Tobacco: Every Day Cigarettes Smokeless Tobacco: Never Tobacco Cessation:Ready to Q uit: No; Counseling Given: No Alcohol Use Standard Drinks/Week Comments Yes 0 (1 standard drink = 0.6 oz pur e alcohol) AUDIT-C Answer Date Recorded Frequency of Alcohol Consumption 2-4 times a tue09/14/2018 Average Number of Drinks Not on file 019 Frequency of Binge Drinking Not on file 08/18 Sex and Gender Information Value Date Recorded Sex Assigned at Male 09/13/2018 1:39 PM CDT Legal Sex Male 7:29 PM CDT Gender Identity Male 09/13/2018 1:39 PM CDT Sexual Orientation Not on file Last Filed Vital Signs Vital Sign Reading Time Taken Comments Blood Pressure 147/99 10/02/2018 3:22 PM CDT Pulse 76 10/02/2018 3:22 PM CDT Temperature 36.7 C (98.1 F) 10/02/2018 3:22 PM CDT Respiratory Rate - - Oxygen Saturation - - Inhaled Oxygen Concentration - - Weight 84.5 kg (186 lb 4.6 oz) 10/02/2018 3:22 P M CDT Height 175.3 cm (5' 9 ) 10/02/2018 3:22 PM CDT Body Mass Index 27.51 10/02/2018 3:22 PM CDT Plan of Treatment Health Maintenance Due Date Last Done Comments ASCVD LDL 1964 ASCVD Statin 1964 Colorectal Cancer Screening Colonoscopy (10 Years) 1964 Annual Physical 1967 Pneumococcal Vaccine: Pediatrics (0 to 5 Years) and At-Risk Patients (6 to 64 Years) (1 of 2 - PCV) 1970 Hepatitis C 1982 DTaP, Tdap and Td Vaccines ( 1 - Tdap) 1983 Zoster Vaccines (1 of 2) 2014 COVID-19 Vaccine (1 - 2023-2 5 season) 2023 Influenza Adult (#1) 2024 02/25/2018, 01/16/2017 RSV Immunization or 60+ Years (1 - Risk 60-74 years 1-dose series) 2024 Meningococcal B Vaccine Aged Out No l onger eligible based on patient's age to complete this topic Meningococcal Vaccine Aged Out No chana dante eligible based on patient's age to complete this topic RSV Immunizations Under 20 Months Aged Out No longer eligible b ased on patient's age to complete this topic Procedures Procedure Name Priority Date/Time Associated Diagnosis Comments COLONOSCOPY Routine FLOOR SUPERVISOR from Last 3 Months or Most Recently Relevant to Health Maintenance Results * Colonoscopy ( FLOOR SUPERVISOR) Narrative [facility] TO EPIC CONVERSION - FLOOR SUPERVISOR Documented hx of procedure Procedure Note , Generic ConversionMD - 02/19/2018 Documented hx of procedure us Generic Conversion Md [facility] PROCEDURE ORDERABLES Final Result [facility] TO EPIC CONVERSION from Last 3 Months or Most Recently Relevant to Health Maintenance Insurance MEDICARE Care Teams Rehabilitation Tech Relationship Specialty Start Date End Date Arthur Clinton MD PCP - General FAMILY PRACTICE 09/14/18
--- OUTSIDE RECORDS SUMMARY | 2024-06-30 01:31 | XMS_ITS | Clinical Summary ---
Author Organization [facility] Address [address] [facility], [address] [address] Phone Care Team Providers Care Study Lead Name Role Phone Hansel Cheek Primary Care Provider [phone] Allergies No known active allergies Medications PROAIR HFA 108 (90 Base) MCG/ACT Aerosol Solution INHALE 2 PUFF(S) BY MOUTH EVERY 4-6 HOURS 2 7 Active atorvastatin (LIPITOR) 40 MG Tablet Take 40 mg by mouth daily. 3 7 Active SYMBICORT 160-4.5 MCG/ACT Aerosol INHALE 2 PUFFS BY MOUTH TWICE A DAY 2 7 Active furosemide (LASIX) 20 MG Tablet Take 20 mg by mouth daily. 0 7 Active gabapentin (NEURONTIN) 300 MG Capsule TAKE 1 CAPSULE BY MOUTH 3 TIMES DAILY 3 7 Active lisinopril (PRINIVIL, ZESTRIL) 5 MG Tablet Take 5 mg by mouth daily. 2 7 Active raNITIdine (ZANTAC) 300 MG Tablet TAKE 1 TABLET BY MOUTH TWICE A DAY 5 7 Active XARELTO 20 MG Tablet TAKE 1 TABLET BY MOUTH WITH EVENING MEAL 1 7 Active SPIRIVA HANDIHALER 18 MCG Capsule INHALE ONE DOSE DAILY 2 7 Active traMADol (ULTRAM) 50 MG Tablet TAKE 1 TABLET BY MOUTH 6 TIMES DAILY FOR 30 DAYS 0 7 Active simvastatin (ZOCOR) 20 MG Tablet Take 20 mg by mouth every evening. Active omeprazole (PRILOSEC) 20 MG CAPSULE DELAYED RELEASE Take 20 mg by mouth daily. Active nitroGLYCERIN (NITROSTAT) 0.4 MG SL Tablet 0.4 mg by Sublingual route every 5 minutes as needed for Chest pain. Active carvedilol (COREG) 25 MG Tablet TAKE 1 TABLET BY MOUTH TWICE A DAY 0 6 Active Active Problems Problem Noted Date Diagnosed Date Centrilobular emphysema 06/24/2016 SOB (shortness of breath) 06/24/2016 Cough 06/24/2016 Tobacco use disorder 06/24/2016 Essential (primary) hypertension 06/24/2016 Pulmonary embolism without acute cor pulmonale 0 06/24/2016 Chronic deep vein thrombosis (DVT) of proximal vein of left lower extremity 06/24/2016 Family History Medical History Relation Name Comments Hypertension Brother Diabetes Father Kidney Disease Father Dementia Mother Relation Name Status Comments Brother Alive Father Mother Social History Tobacco Use Types Packs/Day Years Used Date Smoking Tobacco: Every Day Cigarettes 2 30 Tobacco Cessation:Ready to Q uit: Yes; Counseling Given: No Alcohol Use Standard Drinks/Week Comments Yes 12 (1 standard drink = 0.6 oz pu re alcohol) OCCASIONAL Sexually Active Control Partners Comments Never Sex and Gender Information Value Date Recorded Sex Assigned at Not on file Legal Sex Male 3:25 PM CODING COMPLIANCE AUDITOR Gender Identity Not on file Sexual Orientation Not on file Last Filed Vital Signs Vital Sign Reading Time Taken Comments Blood Pressure 96/64 06/24/2016 1:13 PM CODING COMPLIANCE AUDITOR Pulse 69 06/24/2016 1:13 PM CODING COMPLIANCE AUDITOR Temperature 36.2 C (97.1 F) 06/24/2016 1:13 PM CODING COMPLIANCE AUDITOR Respiratory Rate 16 06/24/2016 1:13 PM CODING COMPLIANCE AUDITOR Oxygen Saturation 90% 06/24/2016 1:13 PM CODING COMPLIANCE AUDITOR Inhaled Oxygen Concentration - - Weight 83.9 kg (185 lb) 06/24/2016 1:13 PM CODING COMPLIANCE AUDITOR Height 177.8 cm (5' 10 ) 06/24/2016 1:13 PM CODING COMPLIANCE AUDITOR Body Mass Index 26.54 06/24/2016 1:13 PM CODING COMPLIANCE AUDITOR Plan of Treatment Health Maintenance Due Date Last Done Comments Hepatitis C Virus (HCV) Screening 1965 TdaP Immunization 1964 Pneumococcal Immunization Combined (1 of 2 - PCV) 1970 Hepatitis B Immunization (1 of 3 - 19+ 3-dose series) 1983 Pneumococcal Immunization (5 0+ years) (1 of 2 - PCV) 1983 Colonoscopy 2009 Colorectal Cancer Screening 2009 Cologuard 2014 Immunochemical Fecal Occult Blood 2014 Zoster Immunization (1 of 2) 2014 PSA Discussion 2019 Influenza Immunization (#1) 2023 SARS-COV-2 Immunization ( - 2023-25 season) 2023 Respiratory Syncytial Virus (RSV) Immunization (Adult) (1 - 1-dose 75+ series) 2039 Lung Cancer Screening Discontinued 07/07/2016 , 05/11/2016, 02/19/2016 Meningococcal Immunization (ACWY) Aged Out No longer eligible based on patient's age to complete this topic Rotavirus Immunization Aged Out No lo nger eligible based on patient's age to complete this topic Procedures Procedure Name Priority Date/Time Associated Diagnosis Comments CT CHEST W CONTRAST STAT 07/07/2016 1 1:24 AM CDT Centrilobular emphysema (<HCC>) from Last 3 Months or Most Recently Relevant to Health Maintenance Results * CT CHEST W CONTRAST (07/07/2016 11:24 AM CDT) Anatomical Region Laterality Modality Chest N/A Computed Tomogra phy 07/07/2016 11:4 0 AM CDT Impressions 07/07/2016 11:43 AM CDT IMPRESSION: 1. No evidence of acute pulmonary embolism. 2. Scar or web in the right lower lobar pulmonary artery, likely sequela of prior pulmonary embolism. 3. Mild centrilobular emphysema. Mild bronchial wall thickening in the bilateral lower lobes is evidence of bronchitis/bronchiolitis. 4. Multiple pulmonary nodules, measuring up to 7 mm. In accordance with the Fleischner Society 2017 guidelines for the management of incidental pulmonary nodules, a chest CT in 3-6 months is recommended to assess for stability. 5. Indeterminate 1.7 cm left adrenal nodule. Adrenal protocol CT or MRI is recommended for definitive characterization. Benign, lipid rich right adrenal adenoma. 6. Severe coronary artery calcifications. Automated exposure control was used as a dose optimization technique for this examination. Narrative 07/07/2016 11:43 AM CDT EXAMINATION: CT of the chest with intravenous contrast. HISTORY: Bilateral lower extremity swelling. Deep vein thrombosis in the lower extremities on ultrasound today. Concern for pulmonary embolism. COMPARISON: None. TECHNIQUE: Multiple axial CT images of the chest were obtained after the administration of intravenous contrast. If intravenous contrast material had not been administered, the likelihood of detecting abnormalities relevant to the patient's condition would have been substantially decreased. Coronal and sagittal reformatted images were generated and reviewed. INTRAVENOUS CONTRAST: 100 mL of Isovue 370 was administered via a right forearm IV. FINDINGS: Adequate contrast bolus, without evidence of acute pulmonary embolism. There is a linear scar or web in the right lower lobar pulmonary artery (axial image 129 of 241), likely sequela of prior pulmonary embolism. The thyroid gland is normal in appearance. There is no axillary, mediastinal, or hilar lymphadenopathy. There are calcified mediastinal and hilar lymph nodes, evidence of prior granulomatous infection. The thoracic aorta and main pulmonary artery are normal in course and caliber. There is mild atherosclerotic calcification of the thoracic aorta. There are severe coronary artery calcifications. The heart size is normal. There is no pericardial effusion. The central airways are patent. There is bronchial wall thickening in the bilateral lower lobes. There is mild centrilobular emphysema. There are multiple pulmonary nodules, including a 3 mm right upper lobe pulmonary nodule (axial image 81 of 241), a 5 mm right lower lobe pulmonary nodule (axial image 100 of 241), and a 7 mm left upper lobe pulmonary nodule (axial image 52 of 241). There is scattered bilateral linear scarring or subsegmental atelectasis. There is no pleural effusion. Limited images of the upper abdomen were obtained. There is a 1.3 cm right adrenal nodule which measures -8 Hounsfield units on post-contrast imaging and is consistent with a benign, lipid rich adrenal adenoma. A 1.7 cm left adrenal nodule (axial image 238 of 241) measures 21 Hounsfield units and is indeterminate. There are no aggressive appearing lytic or sclerotic osseous lesions. There is multilevel degenerative change of the thoracic spine. THIS IS AN ELECTRONICALLY VERIFIED REPORT 07/07/2016 11:40 AM: Jarrell Horowitz M.D. Jarrell Horowitz M.D. Radiologist AB: [facility] Procedure Note Jarrell Horowitz MD - 07/07/2016 EXAMINATION: CT of the chest with intravenous contrast. HISTORY: Bilateral lower extremity swelling. Deep vein thrombosis in the lower extremities on ultrasound today. Concern for pulmonary embolism. COMPARISON: None. TECHNIQUE: Multiple axial CT images of the chest were obtained after the administration of intravenous contrast. If intravenous contrast material had not been administered, the likelihood of detecting abnormalities relevant to the patient's condition would have been substantially decreased. Coronal and sagittal reformatted images were generated and reviewed. INTRAVENOUS CONTRAST: 100 mL of Isovue 370 was administered via a right forearm IV. FINDINGS: Adequate contrast bolus, without evidence of acute pulmonary embolism. There is a linear scar or web in the right lower lobar pulmonary artery (axial image 129 of 241), likely sequela of prior pulmonary embolism. The thyroid gland is normal in appearance. There is no axillary, mediastinal, or hilar lymphadenopathy. There are calcified mediastinal and hilar lymph nodes, evidence of prior granulomatous infection. The thoracic aorta and main pulmonary artery are normal in course and caliber. There is mild atherosclerotic calcification of the thoracic aorta. There are severe coronary artery calcifications. The heart size is normal. There is no pericardial effusion. The central airways are patent. There is bronchial wall thickening in the bilateral lower lobes. There is mild centrilobular emphysema. There are multiple pulmonary nodules, including a 3 mm right upper lobe pulmonary nodule (axial image 81 of 241), a 5 mm right lower lobe pulmonary nodule (axial image 100 of 241), and a 7 mm left upper lobe pulmonary nodule (axial image 52 of 241). There is scattered bilateral linear scarring or subsegmental atelectasis. There is no pleural effusion. Limited images of the upper abdomen were obtained. There is a 1.3 cm right adrenal nodule which measures -8 Hounsfield units on post-contrast imaging and is consistent with a benign, lipid rich adrenal adenoma. A 1.7 cm left adrenal nodule (axial image 238 of 241) measures 21 Hounsfield units and is indeterminate. There are no aggressive appearing lytic or sclerotic osseous lesions. There is multilevel degenerative change of the thoracic spine. THIS IS AN ELECTRONICALLY VERIFIED REPORT 07/07/2016 11:40 AM: Jarrell Horowitz M.D. Jarrell Horowitz M.D. Radiologist AB: [facility] IMPRESSION: 1. No evidence of acute pulmonary embolism. 2. Scar or web in the right lower lobar pulmonary artery, likely sequela of prior pulmonary embolism. 3. Mild centrilobular emphysema. Mild bronchial wall thickening in the bilateral lower lobes is evidence of bronchitis/bronchiolitis. 4. Multiple pulmonary nodules, measuring up to 7 mm. In accordance with the Fleischner Society 2017 guidelines for the management of incidental pulmonary nodules, a chest CT in 3-6 months is recommended to assess for stability. 5. Indeterminate 1.7 cm left adrenal nodule. Adrenal protocol CT or MRI is recommended for definitive characterization. Benign, lipid rich right adrenal adenoma. 6. Severe coronary artery calcifications. Automated exposure control was used as a dose optimization technique for this examination. Shlomo Henry MD IMG CT ORDERABLES Final Result from Last 3 Months or Most Recently Relevant to Health Maintenance Care Teams Study Lead Relationship Specialty Start Date End Date Hansel Cheek, PAC [address] [place] [address] PCP - General Physician Biometric Screener 03/08/16
--- OUTSIDE RECORDS SUMMARY | 2024-06-30 01:31 | XMS_ITS | Clinical Summary ---
Author Organization [facility] Quique jiménez [facility] Address [address] [place] [address] Care Team Providers Care Psychologist Educational Name Role Phone Arthur Clinton MD Primary Care Provider + Allergies No known active allergies Medications albuterol (PROVENTIL,NORY TOLIN) 2 mg/5 mL syrup Take 2 mg by mouth. Active atorvastatin (LIPITOR) 40 mg tablet Take 1 Tablet by mouth daily. 9 Active Symbicort 160-4.5 mcg/actuation HFA Aerosol Inhaler INHALE 2 PUFFS BY MOUTH TWICE A DAY 1 Active carvediloL (COREG) 25 mg tablet Take 1 Tablet by mouth 2 times daily. 9 Active pantoprazole (PROTONIX) 40 mg Tablet, Delayed Release (E.C.) Take 1 Tablet by mouth daily. 1 Active rivaroxaban (XARELTO) 20 mg Tablet Take 20 mg by mouth daily. 9 Active BABY ASPIRIN ORAL Take by mouth. Activ e omega-3 fatty acids-fish oil 300-1,000 mg Capsule Take by mouth daily. Active magnesium oxide 200 mg magnesium Tablet Take by mouth daily. Active cyanocobalamin (VITAMIN B-12) 100 mcg tablet Take 100 mcg by mouth daily. Active ascorbic acid (VITAMIN C) 100 mg Tablet, Chewable Take 100 mg by mouth. Active ondansetron (Zofran) 8 mg TabletIndicati ons:Malignant neoplasm of upper lobe of right lung (CMS/HCC),Jeannine gnant neoplasm of upper lobe of left lung (CMS/HCC) Take 1 Tablet (8 mg) by mouth every 8 hours as needed for Nausea/Emesis. 90 Tablet 3 2 Active folic acid (FOLVITE) 1 mg tablet Take 1 mg by mouth daily. Active sucralfate (CARAFATE) 100 mg/mL suspension Take 10 mL (1 Gram) by mouth every 6 hours. 120 mL 2 Active Antacid-Antiga s 200-200-20 mg/5 mL Suspension 2 Active amoxicillin-cl avulanate (AUGMENTIN) 875-125 mg tablet Take 1 Tablet by mouth every 12 hours. 2 Active nitroglycerin (NITROSTAT) 0.4 mg Tablet, SublingualIndi cations:Chest pain due to CAD Place 1 Tablet (0.4 mg) under tongue every 5 minutes as needed for Chest Pain. 30 Tablet 2 Active megestroL (MEGACE) 400 mg/10 mL (40 mg/mL) suspensionIndi cations:Malign ant neoplasm of upper lobe of left lung (CMS/HCC),Anor exia Take 10 mL (400 mg) by mouth daily. 240 mL 2 2 Active varenicline (CHANTIX) 0.5 mg (11)- 1 mg (42) tablets STARTER dose pack Take as directed on package. 53 Tablet 2 Active methylPREDNISo lone (MEDROL DOSPACK) 4 mg Tablets, Dose Pack Use as directed 21 Tablet 3 Active predniSONE (DELTASONE) 10 mg tablet Take 1 Tablet (10 mg) by mouth 2 times daily with meals. 20 Tablet 1 3 Active lidocaine-pril ocaine (EMLA) 2.5-2.5 % CreamIndicatio ns:Malignant neoplasm of upper lobe of right lung (CMS/HCC),Jeannine gnant neoplasm of upper lobe of left lung (CMS/HCC) Apply to affected area see administration instructions. Apply to port site 30 minutes prior to access- topical. 30 Gram 3 3 Active levoFLOXacin (Levaquin) 500 mg tabletIndicati ons:Malignant neoplasm of upper lobe of right lung (CMS/HCC),Jeannine gnant neoplasm of upper lobe of left lung (CMS/HCC) Take 1 Tablet (500 mg) by mouth daily. 10 Tablet 3 Active Active Problems Problem Noted Date Diagnosed Date Malignant neoplasm of upper lobe of left lung Encounters Date Type Department Care Team Description 06/23/2024 External Device Data [facility] ABSTRACTION Provider, Abstract 06/23/2024 External Device Data [facility] ABSTRACTION Provider, Abstract 06/20/2024 External Device Data [facility] ABSTRACTION Provider, Abstract 06/19/2024 External Device Data [facility] ABSTRACTION Provider, Abstract 06/06/2024 External Device Data [facility] ABSTRACTION Provider, Abstract 06/06/2024 External Device Data [facility] ABSTRACTION Provider, Abstract 05/16/2024 External Device Data [facility] ABSTRACTION Provider, Abstract 05/10/2024 External Device Data [facility] ABSTRACTION Provider, Abstract 05/01/2024 External Device Data [facility] ABSTRACTION Provider, Abstract from Last 3 Months Family History Medical History Relation Name Comments Leukemia Brother Relation Name Status Comments Brother Alive Father Mother Son Alive Social History Tobacco Use Types Packs/Day Years Used Date Smoking Tobacco: Every Day Cigarettes Smokeless Tobacco: Never Tobacco Cessation:Ready to Q uit: Not Asked; Counseling Given: Not Answered Alcohol Use Standard Drinks/Week Comments Yes 0 (1 standard drink = 0.6 oz pur e alcohol) occasional Sex and Gender Information Value Date Recorded Sex Assigned at Not on file Legal Sex Male 2:48 PM BLOCKING MACHINE OPERATOR Gender Identity Not on file Sexual Orientation Not on file Last Filed Vital Signs Vital Sign Reading Time Taken Comments Blood Pressure 123/72 03/12/2024 9:30 AM BLOCKING MACHINE OPERATOR Pulse 80 03/12/2024 9:30 AM BLOCKING MACHINE OPERATOR Temperature 36.3 C (97.3 F) 03/12/2024 9:30 AM BLOCKING MACHINE OPERATOR Respiratory Rate 16 03/12/2024 9:30 AM BLOCKING MACHINE OPERATOR Oxygen Saturation 95% 03/12/2024 9:30 AM BLOCKING MACHINE OPERATOR Inhaled Oxygen Concentration - - Weight 71.2 kg (157 lb) 03/12/2024 9:30 AM BLOCKING MACHINE OPERATOR Height 177.8 cm (5' 10 ) 11/26/2022 8:54 AM CDT Body Mass Index 22.53 11/26/2022 8:54 AM CDT Plan of Treatment Upcoming Encounters Date Type Department Care Team (Late st Contact Info) Description 07/12/2024 10:15 AM CDT Office Visit [facility] Oncology and Hematology - [place] [address] [place] [phone] Mookie Doe MD [address] [facility] [address] [place] [phone] Health Maintenance Due Date Last Done Comments DTAP/TDAP/TD VACCINES (1 - Tdap) 1983 COLORECTAL SCREENING 2009 Colorectal Cancer Screening 2009 FIT-DNA Q 3 years 2009 FIT/FOBT Q 1 year 2009 Flex Sig/CT Colonography Q 5 years 2009 ZOSTER VACCINE (1 of 2) 2014 INFLUENZA VACCINE (#1) 2023 , 01/30/2019 COVID-19 Vaccine (3 - 2023-2 5 season) 2023 04/29/2021, 11/15/2020 RSV VACCINE (60+ or ) (1 - Risk 60-74 years 1-dose series) 2024 HEPATITIS B VACCINES Aged Out No long er eligible based on patient's age to complete this topic Insurance Care Teams Psychologist Educational Relationship Specialty [place] [address] [phone] PCP - General Family Practice 07/20/21
--- OUTSIDE RECORDS SUMMARY | 2024-06-30 01:31 | XMS_ITS | Encounter Summary ---
Author Organization [facility] Address [address] [place] [address] Care Team Providers Care Senior Clinical Data Coordinator Name Role Phone Arthur Clinton MD Primary Care Provider + Encounter Details Date Type Department Care Team (Late st Contact Info) Description 09/23/2018 Abstract [facility] CONVERSION [address] [place] [address] , Generic Conversion, Social History Tobacco Use Types Packs/Day Years Used Date Smoking Tobacco: Every Day Cigarettes Smokeless Tobacco: Never Alcohol Use Standard Drinks/Week Comments Yes 0 [...] PM CDT Sexual Orientation Not on file documented as of this encounter Plan of Treatment Not on file documented as of this encounter Visit Diagnoses Not on filedocumented in this encounter Care Teams Senior Clinical Data Coordinator Relationship Specialty Start Date End Date Arthur Clinton MD PCP - General FAMILY PRACTICE 09/14/18 documented as of this encounter
--- OUTSIDE RECORDS SUMMARY | 2024-06-30 01:31 | XMS_ITS | Encounter Summary ---
Author Organization [facility] Address [address] [place] [address] Care Team Providers Care Flavor Tank Tender Name Role Phone Arthur Clinton MD Primary Care Provider + Reason for Visit * Reason Onset Date Comments stop moking 02/22/2022 Encounter Details Date Type Department Care Team ([facility] Contact Info) Description 02/22/2022 Telephone [facility] Oncology and Hematology - [place] [address] [place] [address] Mookie Doe MD [address] [place] [address] stop moking Social History Tobacco Use Types Packs/Day Years Used Date Smoking Tobacco: Every Day Cigarettes Smokeless Tobacco: Never Alcohol Use Standard Drinks/Week Comments Yes 0 (1 standard drink = 0.6 oz pur e alcohol) occasional Sex and Gender Information Value Date Recorded Sex Assigned at Not on file 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 No / Unsure 02/08/2022 9:09 AM CDT documented as of this encounter Plan of Treatment Upcoming Encounters Date Type Department Care Team (Late Contact Info) Description 07/12/2024 10:15 AM CDT Office Visit [facility] Oncology and Hematology - [place] [address] [place] [address] [place] [address] [place] [address] [address] [place] [phone] documented as of this encounter Visit Diagnoses Diagnosis Malignant neoplasm of upper lobe of left lung (CMS/HCC)- Primary documented in this encounter Care Teams Flavor Tank Tender Relationship Specialty [place] [address] [phone] PCP - General Family Practice 07/20/21 documented as of this encounter
--- OUTSIDE RECORDS SUMMARY | 2024-06-30 01:31 | XMS_ITS | Encounter Summary ---
Author Organization [facility] Address [address] [place] [address] Care Team Providers Care Rental Car Ferry Driver Name Role Phone Arthur Clinton MD Primary Care Provide r Morgan Vann MD Unavailable [phone] Morgan Cronin MD Unavailable [phone] Mookie Doe MD Unavailable [phone] Say Tubbs NP Unavailable Encounter Details Date Type Department Care Team (Late st Contact Info) Description 01/18/2024 Orders Only [facility] Health Information Management [address] [place] [id number] Scanning, Provider Social History Tobacco Use Types Packs/Day Years [...] you are drinking? Patient does not drink 2 Q3: How often do you have si x or more drinks on one occasion? 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 Gender Identity Not on file Sexual Orientation Not on file documented as of this encounter Plan of Treatment Not on file documented as of this encounter Procedures Procedure Name Priority Date/Time Associated Diagnosis Comments SCAN - LABS 01/18/2024 documented in this encounter Results * SCAN - LABS (01/18/2024) us Provider Scanning Edited Result - Final documented in this encounter Visit Diagnoses Not on filedocumented in this encounter Care Teams Rental Car Ferry Driver Relationship Specialty [place] [address] [facility] [address] [place] [address] PCP - General Family Medicine 04/07/18 Morgan Vann MD [address] [place] [address] Consulting Physician Cardiology 05/09/18 [place] [address] [facility] [address] [place] [address] Consulting Physician Pulmonary Disease 05/19/21 Mookie Doe MD [address] [facility] [address] [place] [phone] Consulting Physician Hematology and Oncology 07/31/21 Say Tubbs NP [address] [place], [place] [phone] Nurse Practitioner Pulmonary Disease 03/08/24 documented as of this encounter
--- OUTSIDE RECORDS SUMMARY | 2024-06-30 01:31 | XMS_ITS | Encounter Summary ---
Author Organization [facility] Address [address] [place] [address] Care Team Providers Care Trucker Name Role Phone Arthur Clinton MD Primary Care Provider + Encounter Details Date Type Department Care Team (Late st Contact Info) Description 09/15/[address] [facility] [address] [place] [address] William Abbott MD Social History Tobacco Use Types Packs/Day Years [...] on filedocumented in this encounter Care Teams Trucker Relationship Specialty Start Date End Date Arthur Clinton MD PCP - General FAMILY PRACTICE 09/14/18 documented as of this encounter
--- OUTSIDE RECORDS SUMMARY | 2024-06-30 01:31 | XMS_ITS | Encounter Summary ---
Author Organization [facility] [employer] [facility] Address [address] [place] [address] Care Team Providers Care Mother Superior Name Role Phone Arthur Clinton MD Primary Care Provider + Encounter Details Date Type Department Care Team ([facility] Contact Info) Description 09/16/2023 Abstract [facility] Oncology and Hematology - [place] [address] [place] [address] IceAdrienne echeverria Social History Tobacco Use Types Packs/Day Years Used Date Smoking Tobacco: Every Day Cigarettes Smokeless Tobacco: Never Alcohol Use Standard Drinks/Week Comments Yes 0 (1 standard drink = 0.6 oz pur e alcohol) occasional Sex and Gender Information Value Date Recorded Sex Assigned at Not on file 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 Gender Identity Not on file Sexual Orientation Not on file documented as of this encounter Plan of Treatment Upcoming Encounters Date Type Department Care Team (Late Contact Info) Description 07/12/2024 10:15 AM CDT Office Visit [facility] Oncology and Hematology - [place] [address] [place] [address] Mookie Doe MD [address] [facility] [address] [place] [address] documented as of this encounter Visit Diagnoses Not on filedocumented in this encounter Care Teams Mother Superior Relationship Specialty [place] [address] [address] [facility] [address] [place] [address] PCP - General Family Practice 07/20/21 documented as of this encounter
[2024-06-30] MEDS: ROCURONIUM BROMIDE 50 MG/5 ML VIAL IV PUSH (01:33)
[2024-06-30] MEDS: ETOMIDATE 20 MG/10 ML AMPUL (01:34)
--- NOTE | 2024-06-30 01:42 | ECG_ITS ---
Test Date: 2024-06-30 01:44:43 Measurements Intervals [place] Rate: 103 P: 70 MD: 154 QRS: 56 QRSD: 99 T: 60 QT: 380 QTc: 500 Interpretive Statements SINUS TACHYCARDIA MODERATE T-WAVE ABNORMALITY, CONSIDER ANTERIOR ISCHEMIA [-0.1+ mV T-WAVE IN V3/V4] PROLONGED QTc INTERVAL Compared to ECG 06/17/2024 14:31:19 T-wave abnormality now present Possible ischemia now present Sinus rhythm no longer present Electronically Signed On 07-02-2024 15:05:01 CDT by David Georges M.D.
[2024-06-30] MEDS: NOREPINEPHRINE 8 MG/D5W 250 ML 8 MG/250 ML BAG 18.75 MG IV CONT (01:45)
[2024-06-30] MEDS: MIDAZOLAM HCL (*CRX) 2 MG/2 ML VIAL 4 MG IV PUSH (01:57)
--- NOTE | 2024-06-30 01:57 | ED_ITS ---
HPI - SOB/Dyspnea General Chief Complaint: Cardiac Arrest/CPR Stated Complaint: rapid response Time Seen by Provider: 06/30/24 01:41 Source: EMS Mode of arrival: EMS Limitations: altered mental status and clinical condition History of Present Illness HPI Narrative: This is a 59-year-old male, with history of malignant neoplasm of the left lung, emphysema, coronary artery disease and hypertension brought in by EMS from home after being found down. EMS reports family found the patient down next to a bed, cyanotic and unresponsive. On their evaluation, the patient was hypoxic to the 50s with systolic pressure in the 70s. An I-gel was placed with bagging and improvement to the high 80s. IVs were established and fluids were started. EMS reports doing CPR for approximately 5 minutes. No shocks or epinephrine was given. Related Data Home Medications ?Medication ?Instructions ?Recorded ?Confirmed ?Last Taken ?Type albuterol sulfate 90 mcg/actuation 2 puff inhalation QID PRN 06/16/21 02/24/24 07/05/21 History aerosol inhaler Bronchospasm aspirin 81 mg tablet,delayed 81 mg PO DAILY 06/16/21 02/24/24 07/05/21 History release (Evaristo Low Dose Aspirin) atorvastatin 40 mg tablet 40 mg PO DAILY 06/16/21 02/24/24 07/05/21 History carvedilol 25 mg tablet 25 mg PO BID 06/16/21 02/24/24 07/06/21 History pantoprazole 40 mg tablet,delayed 40 mg PO BID 06/16/21 02/24/24 07/05/21 History release rivaroxaban 20 mg tablet (Xarelto) 20 mg PO DAILY 06/16/21 02/24/24 07/25/22 History folic acid 1 mg PO DAILY 08/06/21 02/24/24 Unknown History hydrocodone 10 mg-acetaminophen 1 tablet PO Q4H PRN Pain 08/06/21 02/24/24 Unknown History 300 mg tablet megestrol 400 mg/10 mL (10 mL) 400 mg PO DAILY 01/25/22 02/24/24 Unknown History oral suspension lisinopril 5 mg tablet 5 mg PO DAILY 07/16/22 02/24/24 Unknown History nitroglycerin 0.4 mg sublingual See Rx Instructions .Route .COMPLEX 07/16/22 02/24/24 Unknown History tablet Allergies Allergy/AdvReac Type Severity Reaction Status Date / Time No Known Allergies Allergy Verified 06/30/24 02:05 Review of Systems 2 Review of Systems: ROS unobtainable: Yes unobtainable due to medical condition PMFSH Past Medical History Medical History Chronic airway obstruction, not elsewhere classified Dysphagia DVT (deep venous thrombosis) Pulmonary embolism Hypertension Hyperlipidemia CAD (coronary artery disease) Lung cancer Surgical History Surgical History Stented coronary artery Social History Social History Smoking packs per day: 1 Smoking cigarettes per day: 20.0 Years smoked: 45 Smoking pack-years: 45.00 Smoking status: Current every day smoker Tobacco type: cigarettes Additional smoking assessment comments: CUT BACK TO TO 1PK/DAY SINCE 12/2021 Alcohol intake: current Drinks per week: 12 Alcohol use details: BEERS Substance use: former Substance use type: crack/cocaine Living arrangements: with family Spiritual care concerns: No Exam 2 Narrative: GENERAL: Well-developed, thin, unresponsive, mottled HEAD: Normocephalic, atraumatic. EYES: pupils equal round and sluggishly reactive to light, 2 mm bilaterally NECK: Supple. JVD CHEST: Bagging on-going with I-gel in place. Coarse transmitted upper airway sounds bilaterally HEART: Tachycardic with regular rhythm. No murmur heard. Normal peripheral pulses. ABDOMEN: Soft, nondistended, normal active bowel sounds. EXTREMITIES: No edema. SKIN: Mottled, cool, dry, no rash. NEURO: Unresponsive, decorticate posturing Course Course Emergency Course: 02:00 - On arrival, the patient and was bagged by EMS with O2 sats in the 50s. 02:05 - The patient's oxygenation improved after intubation Though he became hypotensive to the 70s systolic. IV fluids placed on a pressure bag and Levophed started. Considering the patient's history of lung cancer and DVT, I have a strong suspicion for PE versus dissection. Will obtain CTA and CT brain. 02:15 - Patient's white blood cell count is elevated 21.5. My review of the CTA chest abdomen pelvis is not immediately concerning for PE or dissection. There appears to be a large consolidation in the left lung that is new compared to CT done 2 weeks ago. I suspect pneumonia and sepsis. Will treat with cefepime and Azithromycin. 02:55 - Lactic acid elevated at 11. CT head not concerning for acute intracranial process. I received notification from [facility] Rad radiologist, Dr. Wong, the patient's ET tube is noted with its tip in the right mainstem bronchus. There is no indication of thoracic aortic aneurysm or dissection. areas of consolidation versus atelectasis versus scarring noted in the left lung with a small left pleural effusion. There is a low 1.8 cm pleural-based nodule in the right lung. Incidental findings of the abdomen include hepatomegaly, thickening of the adrenal glands, possible gallstones and thickening of the urinary bladder possibly due to hypertrophy versus cystitis. A right femoral central line was placed. The patient has a right-sided port in place. After 3L IV fluids (including 1L given by EMS) the patient's blood pressure and heart rate has improved to 131/88 with pulse of 93. His patient's Levophed was weaned to 4mcg/min. The patient is now noted to be biting at the tube. 03:05 - ETT found to be at 26 cm at the teeth. It was retracted 24 cm. With repeat x-ray it appears to be in good position without pneumothorax. 03:16 - ABG after intubation shows normal pH of 7.39 with pCO2 of 37.9, PO2 of 90.1 on FiO2 of 100%. Chemistries demonstrate creatinine elevation of 1.54 with a baseline of 0.5. AST/ ALT 84/87 respectively. CRP elevated at 15. Troponin- I 34.8. Urinalysis not concerning for urinary tract infection. 03:39 - Attempted to contact [facility] for ICU transfer without answer. I discussed the patient with [facility] quality management coordinator ROGER Holder. The patient is followed by pulmonology and primary care at [facility]. 03:53 - I discussed the patient with [facility] cone trucker Dr. Hendrickson who accepts transfer. 06:35 - The patient has a bed assigned at [facility] pending transportation. On reevaluation, the patient's Levophed is at 3mcg/min. He is satting 92% on 95% FiO2. Vital Signs Vital signs: Vital Signs Temperature 98.2 F 06/30/24 01:15 Pulse Rate 98 06/30/24 01:15 Respiratory Rate 15 06/30/24 01:15 Blood Pressure 131/88 06/30/24 01:15 Pulse Oximetry 69 L 06/30/24 01:15 Oxygen Delivery Mechanical Ventilation 06/30/24 01:15 Fraction of Inspired Oxygen 100 06/30/24 01:15 Temperature 98.1 F 06/30/24 04:00 Pulse Rate 81 06/30/24 06:45 Respiratory Rate 22 H 06/30/24 06:45 Blood Pressure 118/89 06/30/24 06:45 Pulse Oximetry 92 06/30/24 06:53 Oxygen Delivery Mechanical Ventilation 06/30/24 06:53 Fraction of Inspired Oxygen 80 06/30/24 06:53 Procedures Central Line Placement Right Femoral: Central Line Date: 06/30/24 Central Line Time: 02:45 Performed Emergently - Given emergent patient condition, temporal constraints may have precluded informed consent.: Yes Time Out Performed: Yes Patient Placed on Monitor/Pulse Ox: Yes Max. Sterile Barrier Technique: Caps, large sterile sheet and hand hygiene Central Line Prep: 2% chlorhexidine scrub Technique: US-Guided Local Anesthetic: none Ultrasound Used for Placement: Yes Central Line Lumen Inserted: triple Post Procedure: sutured in place, good blood return, all ports aspirated, flushed, capped and sterile dressing applied Patient Tolerated Procedure: no complications Complications: none Intubation Intubation #1: Intubation Date: 06/30/24 Intubation Time: 02:00 Time out performed: Yes sedative: Etomidate Mg Given: 20 paralytic: Rocuronium Mg Given: 50 Laryngoscope: other ([place]-scope) Tube Size (cm): 8.0 Method of Intubation: orotracheal Number of Attempts: 1 Tube Secured Depth (cm): 24 Tube Secured Location: teeth Tube Placement Confirmation: visualized tube passing through cords, equal breath sounds bilaterally and no breath sounds over epigastrium Patient Tolerated Procedure: well and no complications Intubation Complications: none MDM - SOB/Dyspnea MDM Narrative Medical decision making narrative: plan: intubation, imaging, EKG, troponin, labs, nebs sepsis protocol, reassess Differential Diagnosis Differential diagnosis: Likely acute exacerbation of chronic obstructive airways disease, congestive heart failure, community acquired pneumonia, pulmonary embolism and other ( pneumothorax, dissection, seizure, ACS, sepsis, metabolic abnormality, other) Lab Data 06/30/24 01:53 06/30/24 01:53 Labs: Lab Results 06/30/24 06/30/24 06/30/24 Range/Units 01:53 02:32 03:00 WBC 21.5 H* (4.8-10.8) K/mm3 RBC 2.70 L (4.70-6.10) M/mm3 Hgb 9.1 L (14.0-18.0) g/dL Hct 30.3 L (40.0-54.0) % MCV 112.2 H (78.0-102.0) fL MCH 33.7 H (27.0-31.0) pg MCHC 30.0 L (32-36) g/dL RDW 17.2 H (11.6-14.4) % Plt Count 586 H (150-420) K/mm3 MPV 9.8 (8.7-11.0) fl Immature Gran % (Auto) Not Reportable Neut % (Auto) Not Reportable Lymph % (Auto) Not Reportable [place] % (Auto) Not Reportable Eos % (Auto) Not Reportable Baso % (Auto) Not Reportable Lymph # (Auto) Not Reportable [place] # (Auto) Not Reportable Eos # (Auto) Not Reportable Baso # (Auto) Not Reportable Abs Immat Gran (auto) Not Reportable Absolute Neuts (auto) Not Reportable Absolute Nucleated RBC Not Reportable Total Counted 100 Neutrophils % (Manual) 90 H (46-73) % Band Neutrophils % 3 (0-6) % Lymphocytes % (Manual) 4 L (18-44) % Monocytes % (Manual) 2 L (3-9) % Eosinophils % (Manual) 0 L (1-6) % Basophils % (Manual) 0 (0-1) % Metamyelocytes % 1 % Nucleated RBC % Not Reportable Abs Neuts (Manual) 19.99 H (1.3-6.7) K/mm3 Abs Lymphs (Manual) 0.86 L (1.1-4.5) K/mm3 Abs Monocytes (Manual) 0.43 (0.1-0.90) K/mm3 Absolute Eos (Manual) 0.00 L (0.02-0.50) K/mm3 Abs Basophils (Manual) 0.00 (0-0.1) K/mm3 Platelet Estimate Increased (Adequate) % Immature Plt Fraction 2.6 (1.0-7.0) % Schistocytes Not Reportable PT 20.4 H (9.50-12.1) Seconds INR 2.0 APTT 29.6 (23.9-30.70) Sec Minute Volume Not Reportable Vent Mode Assist control Tidal Volume 450 ml PEEP 5 cmH2O Peak Inspir Pressure Not Reportable Pressure Support Not Reportable Sodium 136 (136-145) mmol/L Potassium 4.0 (3.5-5.1) mmol/L Chloride 98 (98-108) mmol/L Carbon Dioxide 23 (21-32) mmol/L Anion Gap 15 H (4-12) mmol/L BUN 17 (7-18) mg/dL Creatinine 1.54 H (0.70-1.30) mg/dL Estim Creat Clear Calc Not Reportable Estimated GFR 46 L (59 - ) Glucose 158 H (70-99) mg/dL Calculated Osmolality 286 (285-295) mOsm/kg Lactic Acid 11.8 H (0.4-2.0) mmol/L Calcium 8.6 (8.5-10.1) mg/dL Magnesium 2.0 (1.8-2.4) mg/dL Total Bilirubin 0.4 (0.00-1.00) mg/dL AST 84 H (15-37) U/L ALT 87 H (16-63) U/L Alkaline Phosphatase 133 H (46-116) U/L Troponin I 34.8 (0.00-60.4) ng/L C-Reactive Protein 15.0 H (0.0-0.9) mg/dL Total Protein 5.8 L (6.4-8.2) g/dL Albumin 1.6 L (3.4-5.0) g/dL Urine Color Yellow (Yellow) Urine Appearance Clear (Clear) Urine pH 6.0 (5.0-8.0) Ur Specific [place] 1.015 (1.010-1.020) Urine Protein 2+ H (Negative) Urine Glucose (UA) Negative (Negative) Urine Ketones Negative (Negative) Ur Blood (Man) 1+ H (Negative) Urine Nitrate Negative (Negative) Urine Bilirubin Negative (Negative) Urine Urobilinogen 0.2 (0.2-1.0) mg/dL Leukocyte Esterase Rfl Negative (Negative) [place]/UL Urine RBC 0-2 (0-2) /hpf Urine WBC 0-3 (0-3) /hpf Urine Bacteria Trace (None) /hpf Influenza A (RT-PCR) (Negative) Influenza B (RT-PCR) (Negative) RSV (RT-PCR) (Negative) SARS-CoV-2 RNA (RT-PCR) (Negative) 06/30/24 06/30/24 Range/Units 04:06 04:47 WBC (4.8-10.8) K/mm3 RBC (4.70-6.10) M/mm3 Hgb (14.0-18.0) g/dL Hct (40.0-54.0) % MCV (78.0-102.0) fL MCH (27.0-31.0) pg MCHC (32-36) g/dL RDW (11.6-14.4) % Plt Count (150-420) K/mm3 MPV (8.7-11.0) fl Immature Gran % (Auto) Neut % (Auto) Lymph % (Auto) [place] % (Auto) Eos % (Auto) Baso % (Auto) Lymph # (Auto) [place] # (Auto) Eos # (Auto) Baso # (Auto) Abs Immat Gran (auto) Absolute Neuts (auto) Absolute Nucleated RBC Total Counted Neutrophils % (Manual) (46-73) % Band Neutrophils % (0-6) % Lymphocytes % (Manual) (18-44) % Monocytes % (Manual) (3-9) % Eosinophils % (Manual) (1-6) % Basophils % (Manual) (0-1) % Metamyelocytes % % Nucleated RBC % Abs Neuts (Manual) (1.3-6.7) K/mm3 Abs Lymphs (Manual) (1.1-4.5) K/mm3 Abs Monocytes (Manual) (0.1-0.90) K/mm3 Absolute Eos (Manual) (0.02-0.50) K/mm3 Abs Basophils (Manual) (0-0.1) K/mm3 Platelet Estimate (Adequate) % Immature Plt Fraction (1.0-7.0) % Schistocytes PT (9.50-12.1) Seconds INR APTT (23.9-30.70) Sec Minute Volume Vent Mode Tidal Volume ml PEEP cmH2O Peak Inspir Pressure Pressure Support Sodium (136-145) mmol/L Potassium (3.5-5.1) mmol/L Chloride (98-108) mmol/L Carbon Dioxide (21-32) mmol/L Anion Gap (4-12) mmol/L BUN (7-18) mg/dL Creatinine (0.70-1.30) mg/dL Estim Creat Clear Calc Estimated GFR (59 - ) Glucose (70-99) mg/dL Calculated Osmolality (285-295) mOsm/kg Lactic Acid 3.0 H (0.4-2.0) mmol/L Calcium (8.5-10.1) mg/dL Magnesium (1.8-2.4) mg/dL Total Bilirubin (0.00-1.00) mg/dL AST (15-37) U/L ALT (16-63) U/L Alkaline Phosphatase (46-116) U/L Troponin I (0.00-60.4) ng/L C-Reactive Protein (0.0-0.9) mg/dL Total Protein (6.4-8.2) g/dL Albumin (3.4-5.0) g/dL Urine Color (Yellow) Urine Appearance (Clear) Urine pH (5.0-8.0) Ur Specific [place] (1.010-1.020) Urine Protein (Negative) Urine Glucose (UA) (Negative) Urine Ketones (Negative) Ur Blood (Man) (Negative) Urine Nitrate (Negative) Urine Bilirubin (Negative) Urine Urobilinogen (0.2-1.0) mg/dL Leukocyte Esterase Rfl (Negative) [place]/UL Urine RBC (0-2) /hpf Urine WBC (0-3) /hpf Urine Bacteria (None) /hpf Influenza A (RT-PCR) Negative (Negative) Influenza B (RT-PCR) Negative (Negative) RSV (RT-PCR) Negative (Negative) SARS-CoV-2 RNA (RT-PCR) Negative (Negative) ABG Data ABG results: 06/30/24 02:32 Puncture Site Right radial ABG pH 7.39 ABG pCO2 37.9 ABG pO2 90.1 H ABG HCO3 22.2 L ABG O2 Saturation 95.9 ABG Base Excess -2.5 L Oxyhemoglobin 95.2 O2 Delivery Device Ventilator O2 Liters/Min 0.0 Vent Rate 24 ECG Data EKG #1: Attestation: I personally reviewed and interpreted this ECG as follows: ECG completion date: 06/30/24 ECG completion time: 01:44 Interpretation: Sinus tachycardia, rate 103, normal axis, no ST segment elevations concerning for ischemia, T-wave inversion in V3. Normal intervals with QTC of 440. Critical Care Time Critical Care Time Critical Care Time: Yes Total Critical Care Time: 60 Discharge Plan Discharge Clinical Impression: Pneumonia, Acute hypoxic respiratory failure, Acidosis, lactic, NOEMI (acute kidney injury) Sepsis Qualifiers: Sepsis type: sepsis due to unspecified organism Sepsis acute organ dysfunction status: with acute organ dysfunction Severe sepsis acute organ dysfunction type: acute respiratory failure Acute respiratory failure type: with hypoxia Severe sepsis shock status: with septic shock Qualified Code(s): A41.9 - Sepsis, unspecified organism Patient Disposition: Acute Care Hospital Condition: Critical Patient Language: Upper Sorbian Prescriptions: No Action azithromycin [Zithromax] 250 mg tablet See Rx Instructions .ROUTE .COMPLEX Qty: 6 0RF Rx Instructions: For 250 mg dose pack: take 500 mg today (day 1), then 250 mg for 4 days (days 2-5) lorazepam [Ativan] 0.5 mg tablet 0.5 mg PO Q6H PRN (Reason: agitation) Qty: 20 0RF atorvastatin 40 mg Tablet 40 mg PO DAILY carvedilol 25 mg Tablet 25 mg PO BID aspirin [Evaristo Low Dose Aspirin] 81 mg Tablet,Delayed Release (Dr/Ec) 81 mg PO DAILY pantoprazole 40 mg Tablet,Delayed Release (Dr/Ec) 40 mg PO BID albuterol sulfate 90 mcg/actuation Hfa Aerosol Inhaler 2 puff INHALATION QID PRN (Reason: Bronchospasm) Xarelto 20 mg Tablet 20 mg PO DAILY sucralfate 1 gram Tablet See Rx Instructions .ROUTE .COMPLEX Qty: 60 1RF Patient Comments: not taking Rx Instructions: Dissolve 1 tablet (1gm) in 15 ml water and drink at least 1 hour prior to meals and at bedtime as needed for sore throat and/or esophagitis. folic acid 1 mg PO DAILY Patient Comments: not taking hydrocodone-acetaminophen 10-300 mg Tablet 1 tablet PO Q4H PRN (Reason: Pain) megestrol 400 mg/10 mL (10 mL) Suspension 400 mg PO DAILY Breztri Aerosphere 160-9-4.8 mcg/actuation HFA aerosol inhaler 2 inh inhalation QAM AND QPM 30 Days Qty: 10.7 5RF Rx Instructions: rinse and spit, use with spacer albuterol sulfate 2.5 mg /3 mL (0.083 %) solution for nebulization 2.5 mg inhalation Q4-6H PRN (Reason: shortness of breath or wheezing) Qty: 360 2RF azithromycin 250 mg tablet See Rx Instructions PO .COMPLEX Qty: 6 0RF Rx Instructions: For 250 mg dose pack: take 500 mg today (day 1), then 250 mg for 4 days (days 2-5) PO nitroglycerin 0.4 mg tablet, sublingual See Rx Instructions .ROUTE .COMPLEX Rx Instructions: . lisinopril 5 mg Tablet 5 mg PO DAILY Patient Comments: states he does not always take Follow-up/Referrals: UNKNOWN,DOCTOR [Primary Care Provider] - Time of Disposition: 03:53
[2024-06-30 01:59] LABS: Hematocrit 30.3 % (40.0-54.0); Hemoglobin 9.1 g/dL (14.0-18.0); Immature Platelet Fraction Pct 2.6 % (1.0-7.0); Mean Corpuscular Hemoglobin 33.7 pg (27.0-31.0); Mean Corpuscular Volume 112.2 fL (78.0-102.0); Mean Platelet Volume 9.8 fl (8.7-11.0); Platelet Count Result 586 K/mm3 (150-420); Red Cell Distribution Width 17.2 % (11.6-14.4)
--- NOTE | 2024-06-30 01:59 | PC.NURSE ---
patient to CT scan via stretcher.
[2024-06-30 02:03] LABS: White Blood Count 21.5 K/mm3 (4.8-10.8)
[2024-06-30 02:11] LABS: Partial Thromboplastin Time 29.6 Sec (23.9-30.70); Prothrombin Time 20.4 Seconds (9.50-12.1)
[2024-06-30 02:17] LABS: Lactic Acid Reflex 11.8 mmol/L (0.4-2.0)
[2024-06-30 02:18] LABS: Band Neutrophils Percent 3 % (0-6); Lymphocytes Absolute Manual 0.86 K/mm3 (1.1-4.5); Lymphocytes Percent Manual 4 % (18-44); Monocytes Absolute Manual 0.43 K/mm3 (0.1-0.90); Monocytes Percent Manual 2 % (3-9); Neutrophils Absolute Manual 19.99 K/mm3 (1.3-6.7); Neutrophils Percent Manual 90 % (46-73); Total Cells Counted 100
[2024-06-30 02:19] LABS: Basophils Percent Manual 0 % (0-1); Eosinophils Percent Manual 0 % (1-6); Metamyelocytes Percent 1 %; Platelet Estimate Increased (Adequate)
[2024-06-30 02:20] LABS: Alanine Aminotransferase 87 U/L (16-63); Albumin Level 1.6 g/dL (3.4-5.0); Alkaline Phosphatase 133 U/L (46-116); Anion Gap 15 mmol/L (4-12); Aspartate Amino Transferase 84 U/L (15-37); Bilirubin,Total 0.4 mg/dL (0.00-1.00); Blood Urea Nitrogen 17 mg/dL (7-18); Calcium 8.6 mg/dL (8.5-10.1); Carbon Dioxide 23 mmol/L (21-32); Chloride 98 mmol/L (98-108); Estimated Glomerular Filt Rate 46; Glucose 158 mg/dL (70-99); Osmolality Calculated 286 mOsm/kg (285-295); Sodium 136 mmol/L (136-145); Total Protein 5.8 g/dL (6.4-8.2); Troponin I 34.8 ng/L (0.00-60.4)
[2024-06-30] MEDS: methylPREDNISolone SOD SUCC 125 MG VIAL IV PUSH (02:23)
[2024-06-30] MEDS: CEFEPIME 2 GM/NS 50 ML 2 GM/50 ML BAG IVPB (02:24)
--- NOTE | 2024-06-30 02:25 | PC.NURSE ---
patient step son arrived, in waiting room. update provided by this RN. per patient step son, patient recently stopped drinking alcohol and smoking.
[2024-06-30 02:34] LABS: Base Excess ABG -2.5 mmol/L (0-2); Device VENTILATOR; HCO3 ABG 22.2 mmol/L (23-29); Modified Allen's Test Pass; Oxygen Saturation ABG 95.9 % (95-97); Oxyhemoglobin 95.2 % (94-100); PCO2 ABG 37.9 mmHg (35-45); PO2 ABG 90.1 mmHg (80-90); Site Drawn RIGHT RADIAL; pH ABG 7.39 (7.35-7.45)
[2024-06-30 02:35] LABS: Arterial Blood Gas Vent Mode ASSIST CONTROL; Arterial Blood Gas Ventilator rate 24 /MIN
[2024-06-30 02:36] LABS: Arterial Blood Gas PEEP 5 cmH2O; Arterial Blood Gas Tidal Volume 450 ml
--- OUTSIDE RECORDS SUMMARY | 2024-06-30 02:36 | XMS_ITS | Clinical Summary ---
Author Organization [facility] [address] Address [address] [place] [address] Care Team Providers Care Block Stacker Name Role Phone Arthur Clinton MD Primary Care Provide r Mrogan Vann MD Unavailable [phone] Mookie Doe MD Unavailable [phone] Say Tubbs NP Unavailable Allergies No [...] 06/18/2024 Assessment & Plan (06/18/2024 11:02 PM CORPORATE CONSULTANT): Chronic cancer pain Patient continues to receive benefit from medication Medication being used in a safe way to improve function Malignant neoplasm of lower lobe of left lung Overview (05/23/2024): S/p radiation completed 08/18/21 Completed carboplatin and Taxol chemotherapy 09/16/21 Maintenance chemotherapy with durvalumab completed October 2022 Oncology monitoring with serial surveillance imaging Assessment & Plan (06/18/2024 11:02 PM CORPORATE CONSULTANT): S/p radiation completed 08/18/21 Completed carboplatin and Taxol chemotherapy 09/16/21 Maintenance chemotherapy with durvalumab completed October 2022 Oncology monitoring with serial surveillance imaging Recommend close follow-up with Oncology to investigate possible new nodules from ED scan DJD (degenerative joint disease) of cervical spi ne 07/05/2019 Hiatal hernia 09/26/2018 Diarrhea 09/13/2018 History of [place] (myocardial infarction) 09/13/2018 Postural hypotension 09/13/2018 History of coronary artery stent placement 08/10 Essential hypertension 05/14/2018 Assessment & Plan (06/18/2024 11:01 PM CORPORATE CONSULTANT): BP Readings from Last 3 Encounters: 06/18/24 106/72 12/14/23 125/83 09/27/23 134/92 Controlled/stable, continue current management Patient off medication - he was losing weight and medication was making him dizzy so he quit lisinopril and carvedilol BP stable - follow-up with Cardiology STELLA (obstructive sleep apnea) 05/14/2018 Assessment & Plan (06/18/2024 11:03 PM CORPORATE CONSULTANT): Previously intolerant of CPAP Follow-up with Pulmonary Anxiety 05/14/2018 CAD (coronary artery disease) 05/09/2018 Overview (05/09/2018): PCI to LAD in 2010 Repeat Cath in 01/2016 for atypical chest pain - no restenosis Assessment & Plan (06/18/2024 11:00 PM CORPORATE CONSULTANT): Continue aspirin, statin therapy for secondary prevention Follow-up with Cardiology GERD (gastroesophageal reflux disease) 9 Assessment & Plan (06/18/2024 11:01 PM CORPORATE CONSULTANT): Continue PPI - Protonix If trouble/pain swallowing persist, may need swallow eval/GI consultation Centrilobular emphysema 06/24/2016 Assessment & Plan (06/18/2024 11:03 PM CORPORATE CONSULTANT): Recommend close follow-up with Pulmonary Continue Breztri [...] Department Care Team Description 06/18/2024 11:45 AM CORPORATE CONSULTANT Office Visit Family Care at [address] [address] Arthur Clinton MD Malignant neoplasm of lower lobe of left lung (HCC) (Primary Dx); Centrilobular emphysema (HCC); Coronary artery disease involving unga coronary artery of unga heart without angina pectoris; Essential hypertension; Gastroesophageal [...] COPD (chronic obstructive pu lmonary disease) (HCC) [place] (mitral incompetence) H/O blood clots Lung cancer [...] on file Legal Sex Male 7:13 PM CORPORATE CONSULTANT Gender Identity Not on file Sexual Orientation Not on file Obstetrics History Last Filed Vital Signs Vital Sign Reading Time Taken Comments Blood Pressure 106/72 06/18/2024 11:38 AM CORPORATE CONSULTANT Pulse 114 06/18/2024 11:38 AM CORPORATE CONSULTANT Temperature 36.1 C (97 F) 06/25/2021 11:21 AM CORPORATE CONSULTANT Respiratory Rate 12 10/06/2021 3:48 PM CDT Oxygen Saturation 95% 09/27/2023 1:40 PM CDT Inhaled Oxygen Concentration - - Weight 70.7 kg (155 lb 14.4 oz) 12/14/2023 3:18 PM CDT Height 177.8 cm (5' 10 ) 06/18/2024 11: 38 AM CORPORATE CONSULTANT Body Mass Index 22.37 12/14/2023 3:18 PM [...] HEPATITIS C ANTIBODY Routine 05/08/2018 3:18 PM CORPORATE CONSULTANT Other problems related to lifestyle HM COLONOSCOPY Routine 04/21/2016 from Last 3 Months or Most Recently Relevant to Health Maintenance Results * PSA screen (12/14/2023) Blood Arthur Clinton MD LAB BLOOD ORDERABLES Final Result EXTERNAL LAB * Hepatitis C antibody (05/08/2018 3:18 PM CORPORATE CONSULTANT) Pathologist [facility] Hep C Ab Negative Negative [facility] Blood specimen (specimen) 05/08/2018 3:18 PM CORPORATE CONSULTANT 05/08/2018 6:40 PM CORPORATE CONSULTANT Narrative [facility] - 05/08/2018 8:51 PM CORPORATE CONSULTANT Arthur Clinton MD LAB MICROBIOLOGY - GE NERAL ORDERABLES Final Result [facility] [address] Department [place] [address] * COLONOSCOPY (04/21/2016) Colonoscopy Normal Michael Blair MD HEALTH MAINTENANCE Final Result from Last 3 Months or Most Recently Relevant to Health Maintenance Insurance MEDICARE SOLUTIONS R HMO REF MEDICARE SOLUTIONS Advance Directives For more information, please contact: [phone] * Full Code (Latest Code Status on File) Date Activated Date Inactivated Comments 06/01/2021 9:31 AM 2021 4:35 AM Care Teams Block Stacker Relationship Specialty [place] [id number] [facility] [address] [place] [address] PCP - General Family Medicine 04/07/18 Morgan Vann MD [address] [facility] [address] [place] [address] Consulting Physician Cardiology 05/09/18 Mookie Doe MD [address] [address] [place] [address] Consulting Physician Hematology and Oncology 07/31/21 Say Tubbs NP [address] [facility] [address] [facility] [address] [place], [place] [id number] Nurse Practitioner Pulmonary Disease 03/08/24
--- OUTSIDE RECORDS SUMMARY | 2024-06-30 02:36 | XMS_ITS | CONTINUITY OF CARE DOCUMENT ---
Author Name kathy chavez Address Unknown Organization [facility] Address [address] [place] [address] [address] [place] [address] Phone [phone] Care Team Providers Care Pilot Control Operator Helper Name Role Phone Marck BROCK, Susan Unavailable [phone] KEISHA VELÁSQUEZ MD Unavailable PROBLEMS Condition Status [...] In-person encounter Office Visit Susan Acharya MD Confucianism Office CAD - S/P LAD STENTS 2008HYPERCHOLESTEROLEM [...] Interpretation Location international normalized ratio (INR) 1.04 [facility] platelet count 180 10*3/mm3 [facility] hematocrit, blood 45.3 % [facility] triglyceride, serum, fasting 48 mg/dL [facility] HDL cholesterol, serum 66 mg/dL [facility] cholesterol/HDL ratio, serum 2.5 [facility] lipoprotein, beta, serum, point, quantitative, calculated 87 mg/dL [facility] cholesterol, serum 163 mg/dL [facility] alanine aminotransferase (SGPT), serum 53 1/L [facility] aspartate aminotransferase (SGOT), serum 49 1/L [facility] creatinine, serum 0.68 mg/dL [facility] potassium, serum 4.1 mmol/L [facility] sodium, serum 141 mmol/L [facility] HISTORY OF MEDICATION USE Medication Status Instructions Dates Provider Indications Com ments B-12 TABLET active Susan Acharya MD [facility] VITAMIN B-1 TABLET active Susan Acharya MD RANEXA 500 MG ORAL TABLET EXTENDED RELEASE 12 HOUR active one tablet twice daily Ssuan Acharya MD NITROSTAT 0.4 MG SUBLINGUAL TABLET [...] Payer name Policy type / Coverage type [place] red republic[employer] [facility] Medicaid 9 [id number] TREATMENT PLAN Date Name STR - Adenosine Complete Echo
--- OUTSIDE RECORDS SUMMARY | 2024-06-30 02:36 | XMS_ITS | Encounter Summary ---
Author Organization [facility] Address [address] [place] [address] Care Team Providers Care Hand Leather Trimmer Name Role Phone Arthur Clinton MD Primary Care Provider + Reason for Visit * Reason Onset Date Comments stop moking 02/22/2022 Encounter Details Date Type Department Care Team ([facility] Contact Info) Description 02/22/2022 Telephone [facility] Oncology and Hematology - [place] [address] [place] [address] Mookie Doe MD [address] [place] [address] stop moking Social History Tobacco Use Types Packs/Day Years Used Date Smoking Tobacco: Every Day Cigarettes Smokeless Tobacco: Never Alcohol Use Standard Drinks/Week Comments Yes 0 (1 standard drink = 0.6 oz pur e alcohol) occasional Sex and Gender Information Value Date Recorded Sex Assigned at Not on file Legal Sex Male 2:48 PM TOBACCO STEMMER Gender Identity Not on file Sexual Orientation [...] Description 07/12/2024 10:15 AM CDT Office Visit [facility] Oncology and Hematology - [place] [address] [place] [address] [place] [address] [place] [address] [address] [place] [phone] documented as of this encounter Visit Diagnoses Diagnosis Malignant neoplasm of upper lobe of left lung (CMS/HCC)- Primary documented in this encounter Care Teams Hand Leather Trimmer Relationship Specialty [place] [address] [address] PCP - General Family Practice 07/20/21 documented as of this encounter
--- OUTSIDE RECORDS SUMMARY | 2024-06-30 02:36 | XMS_ITS | Encounter Summary ---
Author Organization [facility] Address [address] [place] [address] Care Team Providers Care Innersole Fitter Name Role Phone Arthur Clinton MD Primary Care Provide r Morgan Vann MD Unavailable [phone] Morgan Cronin MD Unavailable [phone] Mookie Doe MD Unavailable [phone] Say Tubbs NP Unavailable Encounter Details Date Type Department Care Team (Late st Contact Info) Description 01/18/2024 Orders Only [facility] Health Information Management [address] [place] [address] Scanning, Provider Social History Tobacco Use [...] on file Legal Sex Male 7:13 PM STRAPPER OPERATOR Gender Identity Not on file Sexual [...] on filedocumented in this encounter Care Teams Innersole Fitter Relationship Specialty [place] [address] [facility] [address] [place] [address] PCP - General Family Medicine 04/07/18 Morgan Vann MD [address] [place] [address] Consulting Physician Cardiology 05/09/18 [place] [address] [facility] [address] [place] [address] Consulting Physician Pulmonary Disease 05/19/21 Mookie Doe MD [address] [facility] [address] [place] [phone] Consulting Physician Hematology and Oncology 07/31/21 Say Tubbs NP [address] [place], [place] [id number] Nurse Practitioner Pulmonary Disease 03/08/24 documented as of this encounter
--- OUTSIDE RECORDS SUMMARY | 2024-06-30 02:36 | XMS_ITS | Clinical Summary ---
Author Organization [facility] Quique jiménez [facility] Address [address] [place] [address] Care Team Providers Care Hand Cooper Helper Name Role Phone Arthur Clinton MD Primary [...] on file Legal Sex Male 2:48 PM SCREEN PRINTING PASTER Gender Identity Not on file Sexual Orientation Not on file Last Filed Vital Signs Vital Sign Reading Time Taken Comments Blood Pressure 123/72 03/12/2024 9:30 AM SCREEN PRINTING PASTER Pulse 80 03/12/2024 9:30 AM SCREEN PRINTING PASTER Temperature 36.3 C (97.3 F) 03/12/2024 9:30 AM SCREEN PRINTING PASTER Respiratory Rate 16 03/12/2024 9:30 AM SCREEN PRINTING PASTER Oxygen Saturation 95% 03/12/2024 9:30 AM SCREEN PRINTING PASTER Inhaled Oxygen Concentration - - Weight 71.2 kg (157 lb) 03/12/2024 9:30 AM SCREEN PRINTING PASTER Height 177.8 cm (5' 10 ) 11/26/2022 8:54 AM CDT Body Mass Index 22.53 11/26/2022 8:54 AM CDT Plan of Treatment Upcoming Encounters Date Type Department Care Team (Late st Contact Info) Description 07/12/2024 10:15 AM CDT Office Visit [facility] Oncology and Hematology - [place] [address] [place] [address] Mookie Doe MD [address] [facility] [address] [place] [address] Health Maintenance Due Date Last Done [...] to complete this topic Insurance Care Teams Hand Cooper Helper Relationship Specialty [place] [address] [phone] PCP - General Family Practice 07/20/21
--- OUTSIDE RECORDS SUMMARY | 2024-06-30 02:36 | XMS_ITS | Continuity of Care Document ---
Author Organization [facility] Address [address] [place] [address] Phone Care Team Providers Care Elementary Assistant Principal Name Role Phone García Mcguire MD Unavailable Unavailable Advance Directives Directive Yes / No Effective Date File Name No Information Encounters Encounter Description Practice Location Reason(s) For Visit Diagnoses Date Provider Providers Copied on Encounter [facility], [address] [place], [place], [id number], [place] tel:[phone] [facility] No Information 3[address] Maynor Mariano. [address] [facility] [place], [place], [id number], [place]. tel:[phone] Family History Family Member Type Diagnosis Age At Onset No Information Payers Payer name Insurance type Covered constitution party ID Montserrata kait(s) [facility] CI [id number] Social History Type Description Quantity Date Captured [...]
--- OUTSIDE RECORDS SUMMARY | 2024-06-30 02:36 | XMS_ITS | Encounter Summary ---
Author Organization [facility] Address [address] [place] [address] Care Team Providers Care Glass Scullion Name Role Phone Arthur Clinton MD Primary Care Provider + Encounter Details Date Type Department Care Team ([facility] Contact Info) Description 09/16/2023 Abstract [facility] Oncology and Hematology - [place] [address] [place] [address] IceAdrienne echeverria Social History Tobacco Use Types Packs/Day Years Used Date Smoking Tobacco: Every Day Cigarettes Smokeless Tobacco: Never Alcohol Use Standard Drinks/Week Comments Yes 0 (1 standard drink = 0.6 oz pur e alcohol) occasional Sex and Gender Information Value Date Recorded Sex Assigned at Not on file Legal Sex Male 2:48 PM APPLE PEELER OPERATOR Gender Identity Not on file Sexual Orientation Not on file documented as of this encounter Plan of Treatment Upcoming Encounters Date Type Department Care Team (Late Contact Info) Description 07/12/2024 10:15 AM CDT Office Visit [facility] Oncology and Hematology - [place] [address] [place] [address] Mookie Doe MD [address] [facility] [address] [place] [address] documented as of this encounter Visit Diagnoses Not on filedocumented in this encounter Care Teams Glass Scullion Relationship Specialty [place] [address] [address] [facility] [address] [place] [address] PCP - General Family Practice 07/20/21 documented as of this encounter
--- OUTSIDE RECORDS SUMMARY | 2024-06-30 02:36 | XMS_ITS | Clinical Summary ---
Author Organization [facility] Address [address] [facility], [address] [address] Phone Care Team Providers Care Washery Boss Name Role Phone Hansel Cheek Primary Care Provider [phone] Allergies No known active allergies Medications PROAIR [...] on file Legal Sex Male 3:25 PM SHAPER OPERATOR Gender Identity Not on file Sexual Orientation Not on file Last Filed Vital Signs Vital Sign Reading Time Taken Comments Blood Pressure 96/64 06/24/2016 1:13 PM SHAPER OPERATOR Pulse 69 06/24/2016 1:13 PM SHAPER OPERATOR Temperature 36.2 C (97.1 F) 06/24/2016 1:13 PM SHAPER OPERATOR Respiratory Rate 16 06/24/2016 1:13 PM SHAPER OPERATOR Oxygen Saturation 90% 06/24/2016 1:13 PM SHAPER OPERATOR Inhaled Oxygen Concentration - - Weight 83.9 kg (185 lb) 06/24/2016 1:13 PM SHAPER OPERATOR Height 177.8 cm (5' 10 ) 06/24/2016 1:13 PM SHAPER OPERATOR Body Mass Index 26.54 06/24/2016 1:13 PM SHAPER OPERATOR Plan of Treatment Health Maintenance Due Date [...] Horowitz M.D. Jarrell Horowitz M.D. Radiologist AB: [facility] Procedure Note Jarrell Horowitz MD - 07/07/2016 [...] Horowitz M.D. Jarrell Horowitz M.D. Radiologist AB: [facility] IMPRESSION: 1. No evidence of acute pulmonary [...] Recently Relevant to Health Maintenance Care Teams Washery Boss Relationship Specialty Start Date End Date Hansel Cheek, PAC [address] [place] [address] PCP - General Physician Share Holder 03/08/16
--- OUTSIDE RECORDS SUMMARY | 2024-06-30 02:36 | XMS_ITS | Referral Summary ---
Author Organization [facility] [address] Address [address] [place] [address] Care Team Providers Care Circulation Representative Name Role Phone Arthur Clinton MD Primary Care Provide r Morgan Vann MD Unavailable [phone] Mookie Doe MD Unavailable [phone] Say Tubbs NP Unavailable Encounters Date Type Department Care Team Description 06/18/2024 11:45 AM HAND TOOL LAPPER Office Visit Family Care at [address] [address] Arthur Clinton MD Malignant neoplasm of lower lobe of left lung (HCC) (Primary Dx); Centrilobular emphysema (HCC); Coronary artery disease involving [place] coronary artery of [place] heart without angina pectoris; Essential hypertension; Gastroesophageal [...] 06/18/2024 Assessment & Plan (06/18/2024 11:02 PM HAND TOOL LAPPER): Chronic cancer pain Patient continues to receive benefit from medication Medication being used in a safe way to improve function Malignant neoplasm of lower lobe of left lung Overview (05/23/2024): S/p radiation completed 08/18/21 Completed carboplatin and Taxol chemotherapy 09/16/21 Maintenance chemotherapy with durvalumab completed October 2022 Oncology monitoring with serial surveillance imaging Assessment & Plan (06/18/2024 11:02 PM HAND TOOL LAPPER): S/p radiation completed 08/18/21 Completed carboplatin and Taxol chemotherapy 09/16/21 Maintenance chemotherapy with durvalumab completed October 2022 Oncology monitoring with serial surveillance imaging Recommend close follow-up with Oncology to investigate possible new nodules from ED scan DJD (degenerative joint disease) of cervical spi ne 07/05/2019 Hiatal hernia 09/26/2018 Diarrhea 09/13/2018 History of [place] (myocardial infarction) 09/13/2018 Postural hypotension 09/13/2018 History of coronary artery stent placement 08/10 Essential hypertension 05/14/2018 Assessment & Plan (06/18/2024 11:01 PM HAND TOOL LAPPER): BP Readings from Last 3 Encounters: 06/18/24 106/72 12/14/23 125/83 09/27/23 134/92 Controlled/stable, continue current management Patient off medication - he was losing weight and medication was making him dizzy so he quit lisinopril and carvedilol BP stable - follow-up with Cardiology STELLA (obstructive sleep apnea) 05/14/2018 Assessment & Plan (06/18/2024 11:03 PM HAND TOOL LAPPER): Previously intolerant of CPAP Follow-up with Pulmonary Anxiety 05/14/2018 CAD (coronary artery disease) 05/09/2018 Overview (05/09/2018): PCI to LAD in 2010 Repeat Cath in 01/2016 for atypical chest pain - no restenosis Assessment & Plan (06/18/2024 11:00 PM HAND TOOL LAPPER): Continue aspirin, statin therapy for secondary prevention Follow-up with Cardiology GERD (gastroesophageal reflux disease) 9 Assessment & Plan (06/18/2024 11:01 PM HAND TOOL LAPPER): Continue PPI - Protonix If trouble/pain swallowing persist, may need swallow eval/GI consultation Centrilobular emphysema 06/24/2016 Assessment & Plan (06/18/2024 11:03 PM HAND TOOL LAPPER): Recommend close follow-up with Pulmonary Continue Breztri [...] on file Legal Sex Male 7:13 PM HAND TOOL LAPPER Gender Identity Not on file Sexual Orientation Not on file Last Filed Vital Signs Vital Sign Reading Time Taken Comments Blood Pressure 106/72 06/18/2024 11:38 AM HAND TOOL LAPPER Pulse 114 06/18/2024 11:38 AM HAND TOOL LAPPER Temperature 36.1 C (97 F) 06/25/2021 11:21 AM HAND TOOL LAPPER Respiratory Rate 12 10/06/2021 3:48 PM CDT Oxygen Saturation 95% 09/27/2023 1:40 PM CDT Inhaled Oxygen Concentration - - Weight 70.7 kg (155 lb 14.4 oz) 12/14/2023 3:18 PM CDT Height 177.8 cm (5' 10 ) 06/18/2024 11: 38 AM HAND TOOL LAPPER Body Mass Index 22.37 12/14/2023 3:18 PM CDT Plan of Treatment Not on file Procedures Procedure Name Priority Date/Time Associated Diagnosis Comments PSA SCREEN Routine 12/14/2023 Annual physical exam HEPATITIS C ANTIBODY Routine 05/08/2018 3:18 PM HAND TOOL LAPPER Other problems related to lifestyle HM COLONOSCOPY Routine 04/21/2016 from Last 3 Months or Most Recently Relevant to Health Maintenance Results * PSA screen (12/14/2023) Blood Arthur Clinton MD LAB BLOOD ORDERABLES Final Result Performing Organization Address City/[facility]/ZIP Co de Phone Number EXTERNAL LAB * Hepatitis C antibody (05/08/2018 3:18 PM HAND TOOL LAPPER) Hep C Ab Negative Negative [facility] Blood specimen (specimen) 05/08/2018 3:18 PM HAND TOOL LAPPER 05/08/2018 6:40 PM HAND TOOL LAPPER Narrative [facility] - 05/08/2018 8:51 PM HAND TOOL LAPPER Arthur Clinton MD LAB MICROBIOLOGY - GE NERAL ORDERABLES Final Result [facility] [address] Department [place] [address] * COLONOSCOPY (04/21/2016) Colonoscopy Normal Michael Blair MD HEALTH MAINTENANCE Final Result from Last 3 Months or Most Recently Relevant to Health Maintenance Insurance MEDICARE SOLUTIONS MDCR HMO REF MEDICARE SOLUTIONS Advance Directives For more information, please contact: [phone] * Full Code (Latest Code Status on File) Date Activated Date Inactivated Comments 06/01/2021 9:31 AM 2021 4:35 AM Care Teams Circulation Representative Relationship Specialty [place] [address] [facility] [address] [place] [address] PCP - General Family Medicine 04/07/18 Morgan Vann MD [address] [facility] [address] [place] [address] Consulting Physician Cardiology 05/09/18 Mookie Doe MD [address] [facility] [address] [place] [address] Consulting Physician Hematology and Oncology 07/31/21 Say Tubbs NP [address] [facility] [address] [facility] [address] [place] [address] Nurse Practitioner Pulmonary Disease 03/08/24
--- OUTSIDE RECORDS SUMMARY | 2024-06-30 02:37 | XMS_ITS | Clinical Summary ---
Author Organization [facility] Address [address] [place] [address] Care Team Providers Care Finisher Operator Name Role Phone Arthur Clinton MD [...] as needed. 12/29/2017 Active vitamin D2, ergocalciferol, [address]155 UNITS capsule Take 1 capsule by mouth [...] hypotension 09/13/2018 Coronary artery disease invo [place]ving [place] coronary artery of [place] heart without angina pectoris 09/13/2018 History of [place] (myocardial infarction) 09/13/2018 History of coronary artery stent placement 08/10 Anxiety 05/14/2018 STELLA (obstructive sleep apnea) 05/14/2018 Atherosclerosis of coronary artery 05/09/2018 Overview (09/14/2018): Overview: PCI to LAD in 2010 Repeat Cath in 01/2016 for atypical chest pain - no restenosis Centrilobular emphysema ([facility]) 2016 Chronic deep vein thrombosis (DVT) of proximal vein of left lower extremity ([facility]) 06/24/2016 Essential (primary) hypertension 06/24/2016 Pulmonary embolism without a cute cor pulmonale ([facility]) 06/24/2016 SOB (shortness of breath) 06/24/2016 Tobacco use disorder 06/24/2016 Chronic obstructive pulmonary disease ([facility]) 06/17/2016 Overview (09/14/2018): Overview: Chronic obstructive pulmonary [...] Priority Date/Time Associated Diagnosis Comments COLONOSCOPY Routine DISTRIBUTION FIELD TECHNICIAN from Last 3 Months or Most Recently Relevant to Health Maintenance Results * Colonoscopy ( DISTRIBUTION FIELD TECHNICIAN) Narrative [facility] TO EPIC CONVERSION - DISTRIBUTION FIELD TECHNICIAN Documented hx of procedure Procedure Note , Generic ConversionMD - 02/19/2018 Documented hx of procedure us Generic Conversion Md BROCK GI PROCEDURE ORDERABLES Final Result [facility] TO EPIC CONVERSION from Last 3 Months or Most Recently Relevant to Health Maintenance Insurance MEDICARE Care Teams Finisher Operator Relationship Specialty Start Date End Date Arthur Clinton MD PCP - General FAMILY PRACTICE 09/14/18
--- OUTSIDE RECORDS SUMMARY | 2024-06-30 02:37 | XMS_ITS | Encounter Summary ---
Author Organization [facility] Address [address] [place] [address] Care Team Providers Care Collection Systems Foreman Name Role Phone Arthur Clinton MD Primary Care Provider + Encounter Details Date Type Department Care Team (Late st Contact Info) Description 09/23/2018 Abstract [facility] CON[facility] [address] [place] [address] , Generic Conversion, Social History Tobacco Use [...] on filedocumented in this encounter Care Teams Collection Systems Foreman Relationship Specialty Start Date End Date Arthur Clinton MD PCP - General FAMILY PRACTICE 09/14/18 documented as of this encounter
--- OUTSIDE RECORDS SUMMARY | 2024-06-30 02:37 | XMS_ITS | Encounter Summary ---
Author Organization [facility] Address [address] [place] [address] Care Team Providers Care Product Mgr Name Role Phone Arthur Clinton MD Primary Care Provider + Encounter Details Date Type Department Care Team (Late st Contact Info) Description 09/15/[address] [facility] [address] [place] [address] William Abbott MD Social History [...] on filedocumented in this encounter Care Teams Product Mgr Relationship Specialty Start Date End Date Arthur Clinton MD PCP - General FAMILY PRACTICE 09/14/18 documented as of this encounter
--- NOTE | 2024-06-30 02:45 | PC.NURSE ---
patient family updated as ERP Dr. Paz at bedside inserting central line catheter. offered food/drink.
[2024-06-30] MEDS: IPRATROPIUM 0.5 MG/ALBUTEROL SULFATE 2.5 MG AMPUL.NEB 3 ML INHALATION (02:50)
[2024-06-30] MEDS: MIDAZOLAM 100MG/NS 100ML(*CRX) 100 MG/100 ML BAG IV CONT (02:50)
--- NOTE | 2024-06-30 02:50 | PC.NURSE ---
stat rad phoned for Dr. Paz at this time. call received regarding results.
[2024-06-30 03:07] LABS: Add Urine Microscopic? YES; Appearance Urine Clear (Clear); Bilirubin Urine Negative (Negative); Blood Urine 1+ (Negative); Color Urine Yellow (Yellow); Glucose Urine UA Negative (Negative); Ketones Urine Negative (Negative); Leukocyte Esterase Ur Negative LEU/UL (Negative); Nitrate Urine Negative (Negative); Protein Urine 2+ (Negative); Specific Grav Ur 1.015 (1.010-1.020); Urobilinogen Urine 0.2 mg/dL (0.2-1.0)
[2024-06-30 03:09] LABS: RBC Urine 0-2 /hpf (0-2); WBC Urine 0-3 /hpf (0-3)
[2024-06-30 03:10] LABS: Bacteria Urine Trace /hpf
[2024-06-30] MEDS: AZITHROMYCIN 500 MG/NS 250 ML 500 MG/250 ML BAG 250 MG IVPB (03:24)
[2024-06-30 03:54] LABS: Reflex Lactic Acid Yes or No Add Lactic
--- NOTE | 2024-06-30 04:36 | PC.NURSE ---
patient step son updated at this time. Wei Corbin [phone] and patient spouse Miracle (Mindi mother) [phone].
[2024-06-30 05:28] LABS: Influenza A QL RT-PCR Negative (Negative); Influenza B QL RT-PCR Negative (Negative); RSV RNA, RT-PCR Negative (Negative); SARS-CoV-2 RNA PCR Negative (Negative)
--- NOTE | 2024-06-30 06:39 | PC.NURSE ---
family updated. Family took belongings of patient home, which consisted of jeans, hat forming machine feeder, keys, yellow shirt.
--- NOTE | 2024-07-01 12:42 | PC.NURSE ---
PRELIMINARY BLOOD CULTURE NO GROWTH TO DATE
== END 2024-06-30 08:10 | disposition short-term general hospital (02) ==
PROVIDERS: Emergency Provider Preventive Medicine Aerospace Medicine
DX: A41.89 Other specified sepsis (principal); R65.21 Severe sepsis with septic shock; J18.9 Pneumonia, unspecified organism; J96.01 Acute respiratory failure with hypoxia; E87.20 Acidosis, unspecified; N17.9 Acute kidney failure, unspecified; J43.9 Emphysema, unspecified; I25.10 Atherosclerotic heart disease of native coronary artery without angina pectoris; I10 Essential (primary) hypertension; E78.5 Hyperlipidemia, unspecified; F17.210 Nicotine dependence, cigarettes, uncomplicated; Z86.718 Personal history of other venous thrombosis and embolism; Z85.118 Personal history of other malignant neoplasm of bronchus and lung; Z20.822 Contact with and (suspected) exposure to COVID-19
CPT/HCPCS: 31500; 36415; 36556; 36600; 70450; 71275; 74174; 80053; 81001; 82805; 83605; 83735; 84484; 85025; 85055; 85610; 85730; 86140; 87040; 87637; 93005; 94640; 96365; 96366; 96367; 96375; 99291; C1751; J0456; J0692; J2250; J2919; J7030; J7040; Q9967